=== PATIENT | male | born 1990 | race Hispanic/Latino ===

== ENCOUNTER 2019-06-10 19:50 | Emergency (ER) | payer SELFPAY ==
[2019-06-10] MEDS ORDERED: METOPROLOL TAR 25 MG TAB ONE (20:19)
[2019-06-10] MEDS ORDERED: NA CHLORIDE 0.9% 1,000 ML ONE (20:19)
[2019-06-10] MEDS ORDERED: THIAMINE 200 MG/2 ML INJ ONE (20:19)
[2019-06-10] MEDS ORDERED: METOPROLOL TARTRATE 5 MG/5 ML INJ IV ONE (20:19)
[2019-06-10 20:36] LABS: Absolute Lymphocytes (CBC) 5.4 K/uL (0.7-4.9); Basophils % 0.9 % (0-1.3); Hematocrit 51.4 % (39.6-49.0); Lymphocytes % 44.6 % (15.3-44.8); MPV 7.7 fL (7.6-11.3); RBC Red Blood Cell Count 5.49 M/uL (4.33-5.43)
--- NOTE | 2019-06-10 20:58 | RAD REPORT ---
EXAM DESCRIPTION: RAD - Chest Single View - 06/10/2019 8:39 pm CLINICAL HISTORY: Shortness of breath, palpitations COMPARISON: May 2013 TECHNIQUE: AP portable chest image was obtained 2020 . FINDINGS: Lung volumes are very low. Portable technique and large body habitus further limit the exa mination. No peripheral mass or consolidation. Minimal edema or infiltrate could be masked. Heart and vasculatu re are normal. No measurable pleural effusion and no pneumothorax. No acute bony abnormality seen. No acute aortic findings suspected. IMPRESSION: Limited portable chest examination without acute cardiopulmonary finding.
[2019-06-10 21:00] LABS: ALT/SGPT 67 U/L (12-78); AST/SGOT 65 U/L (15-37); Albumin 3.8 g/dL (3.4-5.0); Alkaline Phosphatase 115 U/L (45-117); BUN Blood Urea Nitrogen 3 mg/dL (7-18); Bicarbonate 25 mmol/L (21-32); Bilirubin Direct 0.1 mg/dL (0-0.2); Bilirubin Total 0.3 mg/dL (0.2-1.0); Glucose Level 120 mg/dL (74-106); Magnesium 2.1 mg/dL (1.8-2.4); NT PRO-BNP 10 pg/mL (<125); Potassium 3.5 mmol/L (3.5-5.1); Protein, Total 8.8 g/dL (6.4-8.2); Sodium Level 139 mmol/L (136-145); Troponin (Emerg Dept Use Only) < 0.02 ng/mL (0.0-0.045)
[2019-06-10 21:01] LABS: Protime INR 1.14
--- NOTE | 2019-06-10 21:01 | EDPHYS ---
Physician Documentation [facility] Name: Rusty Read Jr Age: 29 yrs Sex: Male : 1990 Arrival Date: 06/10/2019 Time: 19:53 Bed 4 Private MD: ED Physician Hardeep Hyde HPI: 06/10 20:54 This 29 yrs old Male presents to ER via Ambulatory with complaints of kb Palpitations. 20:54 The patient presents with a history of heart racing. Context: The symptoms occur at kb rest. Onset: The symptoms/episode began/occurred 1 hour(s) ago. Duration: The patient or guardian reports a single episode. Modifying factors: The symptoms are aggravated by nothing. The symptoms are alleviated by nothing. Associated signs and symptoms: The patient has no apparent associated signs or symptoms. Severity of symptoms: At their worst the symptoms were moderate in the emergency department the symptoms are unchanged. The patient has experienced similar episodes in the past, multiple times. The patient has not recently seen a physician. Pt reports history of SVT when he drinks. Started feeling racing heart within the hour. Historical: - Allergies: 20:02 No Known Allergies; jd3 - Home Meds: 20:02 Atenolol Oral [Active]; jd3 - PMHx: 20:02 svt; jd3 - PSHx: 20:02 Appendectomy; jd3 - Immunization history:: Adult Immunizations up to date. - Social history:: Smoking status: Patient uses tobacco products, smokes one pack cigarettes per day. Patient uses alcohol. - Ebola Screening: : Patient negative for fever greater than or equal to 101.5 degrees Fahrenheit, and additional compatible Ebola Virus Disease symptoms. ROS: 20:53 Constitutional: Negative for fever, chills, and weight loss, ENT: Negative for injury, kb pain, and discharge, Neck: Negative for injury, pain, and swelling, Respiratory: Negative for shortness of breath, cough, wheezing, and pleuritic chest pain, Abdomen/GI: Negative for abdominal pain, nausea, vomiting, diarrhea, and constipation, Back: Negative for injury and pain, MS/Extremity: Negative for injury and deformity, Skin: Negative for injury, rash, and discoloration, Neuro: Negative for headache, weakness, numbness, tingling, and seizure. 20:53 Cardiovascular: Positive for palpitations, Negative for chest pain, edema, orthopnea, paroxysmal nocturnal dyspnea. Exam: 20:53 Constitutional: This is a well developed, well nourished patient who is awake, alert, kb and in no acute distress. Head/Face: Normocephalic, atraumatic. ENT: Nares patent. No nasal discharge, no septal abnormalities noted. Tympanic membranes are normal and external auditory canals are clear. Oropharynx with no redness, swelling, or masses, exudates, or evidence of obstruction, uvula midline. Mucous membranes moist. Neck: Trachea midline, no thyromegaly or masses palpated, and no cervical lymphadenopathy. Supple, full range of motion without nuchal rigidity, or vertebral point tenderness. No Meningismus. Chest/axilla: Normal chest wall appearance and motion. Nontender with no deformity. No lesions are appreciated. Respiratory: Lungs have equal breath sounds bilaterally, clear to auscultation and percussion. No rales, rhonchi or wheezes noted. No increased work of breathing, no retractions or nasal flaring. Abdomen/GI: Soft, non-tender, with normal bowel sounds. No distension or tympany. No guarding or rebound. No evidence of tenderness throughout. Back: No spinal tenderness. No costovertebral tenderness. Full range of motion. Skin: Warm, dry with normal turgor. Normal color with no rashes, no lesions, and no evidence of cellulitis. MS/ Extremity: Pulses equal, no cyanosis. Neurovascular intact. Full, normal range of motion. Neuro: Awake and alert, GCS 15, oriented to person, place, time, and situation. Cranial nerves II-XII grossly intact. Motor strength 5/5 in all extremities. Sensory grossly intact. Cerebellar exam normal. Normal gait. 20:53 Cardiovascular: Rate: tachycardic, Rhythm: regular, Pulses: no pulse deficits are appreciated, Heart sounds: normal, normal S1and S2, no S3 or S4, no murmur. 21:00 ECG was reviewed by the Attending Physician. kb 21:09 ECG was reviewed by the Attending Physician. inés Vital Signs: 20:02 BP 154 / 94; Pulse 188; Resp 22 S; Temp 97.7(O); Pulse Ox 98% on R/A; Weight 113.4 kg jd3 (R); Height 5 ft. 6 in. (167.64 cm) (R); Pain 0/10; 20:32 BP 118 / 75; Pulse 94; Resp 20; Pulse Ox 99% on R/A; rr5 20:35 BP 118 / 75; Pulse 96; Resp 19; Pulse Ox 95% on R/A; Pain 0/10; lp1 21:11 BP 110 / 65; Pulse 90; Resp 20; Pulse Ox 97% on R/A; lp1 20:02 Body Mass Index 40.35 (113.40 kg, 167.64 cm) jd3 MDM: 20:03 Patient medically screened. kb 20:12 Data reviewed: vital signs, nurses notes. Data interpreted: Pulse oximetry: on room air kb is 98 %. Interpretation: normal. ED course: Monitor showed SVT at rate of 192, asked pt to bear down so try to convert himself. Pt strained and sat up saying "I'm good." Monitor showed heart rate coming down. Now ST with rate of 125. . 20:59 Counseling: I had a detailed discussion with the patient and/or guardian regarding: the kb historical points, exam findings, and any diagnostic results supporting the discharge/admit diagnosis, lab results, radiology results, the need for outpatient follow up, a family practitioner, to return to the emergency department if symptoms worsen or persist or if there are any questions or concerns that arise at home. ED course: Pt removed his IV and states he is ready to leave now. HR 98bpm. 06/10 20:03 Order name: Basic Metabolic Panel; Complete Time: 21:05 kb 06/10 20:03 Order name: CBC with Diff; Complete Time: 20:47 kb 06/10 20:03 Order name: LFT's; Complete Time: 21:05 kb 06/10 20:03 Order name: Magnesium; Complete Time: 21:05 kb 06/10 20:03 Order name: NT PRO-BNP; Complete Time: 21:05 kb 06/10 20:03 Order name: PT-INR kb 06/10 20:03 Order name: Troponin (emerg Dept Use Only); Complete Time: 21:05 kb 06/10 20:03 Order name: XRAY Chest (1 view); Complete Time: 21:05 kb 06/10 20:07 Order name: TSH remi 06/10 20:07 Order name: Thyroid Stimulating Hormone; Complete Time: 21:05 EDMS 06/10 20:03 Order name: EKG; Complete Time: 20:05 kb 06/10 20:03 Order name: Cardiac monitoring; Complete Time: 20:15 kb 06/10 20:03 Order name: EKG - Nurse/Tech; Complete Time: 20:15 kb 06/10 20:03 Order name: IV Saline Lock; Complete Time: 20:32 kb 06/10 20:03 Order name: Labs collected and sent; Complete Time: 20:32 kb 06/10 20:03 Order name: O2 Per Protocol; Complete Time: 20:32 kb 06/10 20:03 Order name: O2 Sat Monitoring; Complete Time: 20:16 kb 06/10 21:03 Order name: EKG - Nurse/Tech; Complete Time: 21:10 fc 06/10 21:03 Order name: EKG; Complete Time: 21:03 fc EC:00 Rate is 125 beats/min. Rhythm is regular, Sinus tachycardia. QRS [place] is Normal. MN kb interval is normal at 174 msec. QRS interval is normal at 82 msec. QT interval is normal at 306 msec. Reviewed by me. 21:09 Rate is 88 beats/min. Rhythm is regular, Normal Sinus Rhythm. QRS [place] is Normal. MN kb interval is normal at 178 msec. QRS interval is normal at 86 msec. QT interval is normal at 364 msec. Reviewed by me. Administered Medications: 20:25 Drug: NS 0.9% 1000 ml Route: IV; Rate: 1 bolus; Site: left forearm; rr5 21:10 Follow up: IV Status: IV converted to saline lock; IV Intake: 500ml lp1 20:25 Drug: NS 0.9% 1000 ml Route: IV; Rate: 1000 ml; Site: left forearm; rr5 21:11 Follow up: IV Status: IV converted to saline lock lp1 20:25 Drug: Thiamine 100 mg Route: IV; Rate: calculated rate; Site: left forearm; rr5 21:11 Follow up: IV Status: Completed infusion lp1 20:27 Drug: Lopressor 2.5 mg {Note: HR 130 bpm.} Route: IVP; Site: left forearm; rr5 21:10 Follow up: Response: No adverse reaction lp1 20:32 Drug: Lopressor 25 mg Route: PO; rr5 21:10 Follow up: Response: No adverse reaction lp1 Disposition: 06/11 09:00 Co-signature as Attending Physician, Hardeep Hyde MD I agree with the assessment and remi plan of care. Disposition: 06/10/19 21:00 Discharged to Home. Impression: Supraventricular tachycardia - resolved. - Condition is Stable. - Discharge Instructions: Paroxysmal Supraventricular Tachycardia, [id number]. - Medication Reconciliation Form, Thank You Letter, Antibiotic Education, Prescription Opioid Use form. - Follow up: Emergency Department; When: As needed; Reason: Worsening of condition. Follow up: Private Physician; When: 2 - 3 days; Reason: Recheck today's complaints, Continuance of care, Re-evaluation by your physician. Signatures: Dispatcher [employer] EDMS Angeles Chavez, ROLL PLUGGER-C ROLL PLUGGER-Hardeep Haley MD MD cha Chretien, Felicia, RN RN fc Juju Ribera RN RN lp1 Bruce Wiley RN RN jd3 David Howard RN RN rr5 Corrections: (The following items were deleted from the chart) 06/10 21:12 21:00 06/10/2019 21:00 Discharged to Home. Impression: Supraventricular tachycardia - lp1 resolved. Condition is Stable. Forms are Medication Reconciliation Form, Thank You Letter, Antibiotic Education, Prescription Opioid Use. Follow up: Emergency Department; When: As needed; Reason: Worsening of condition. Follow up: Private Physician; When: 2 - 3 days; Reason: Recheck today's complaints, Continuance of care, Re-evaluation by your physician. kb
--- NOTE | 2019-06-10 21:01 | ER ---
Nurse's Notes [facility] Name: Rusty Read Jr Age: 29 yrs Sex: Male : 1990 Arrival Date: 06/10/2019 Time: 19:53 Bed 4 Private MD: Diagnosis: Supraventricular tachycardia-resolved Presentation: 06/10 19:59 Presenting complaint: Patient states: "My heart is feeling crazy. It feels like I can't jd3 breath. it started at 1900 today.". Transition of care: patient was not received from another setting of care. Onset of symptoms was June 10, 2019. Risk Assessment: Do you want to hurt yourself or someone else? Patient reports no desire to harm self or others. Initial Sepsis Screen: Does the patient meet any 2 criteria? No. Patient's initial sepsis screen is negative. Does the patient have a suspected source of infection? No. Patient's initial sepsis screen is negative. Care prior to arrival: None. 19:59 Method Of Arrival: Ambulatory jd3 19:59 Acuity: CINDY 2 jd3 Historical: - Allergies: 20:02 No Known Allergies; jd3 - Home Meds: 20:02 Atenolol Oral [Active]; jd3 - PMHx: 20:02 svt; jd3 - PSHx: 20:02 Appendectomy; jd3 - Immunization history:: Adult Immunizations up to date. - Social history:: Smoking status: Patient uses tobacco products, smokes one pack cigarettes per day. Patient uses alcohol. - Ebola Screening: : Patient negative for fever greater than or equal to 101.5 degrees Fahrenheit, and additional compatible Ebola Virus Disease symptoms. Screenin:33 Abuse screen: Denies threats or abuse. Denies injuries from another. Nutritional lp1 screening: No deficits noted. Tuberculosis screening: No symptoms or risk factors identified. Fall Risk None identified. Assessment: 20:32 Reassessment: Patient states drinking 12 pack of beer today. General: Appears in no lp1 apparent distress. Behavior is calm, cooperative, appropriate for age, Smells of alcohol. Pain: Denies pain. Neuro: Level of Consciousness is awake, alert, obeys commands, Oriented to person, place, time, situation. Cardiovascular: Patient's skin is warm and dry. Respiratory: Respiratory effort is even, unlabored. GI: No signs and/or symptoms were reported involving the gastrointestinal system. : No signs and/or symptoms were reported regarding the genitourinary system. EENT: No signs and/or symptoms were reported regarding the EENT system. Derm: Skin is pink, warm \\T\\ dry. Musculoskeletal: No deficits noted. 20:44 Reassessment: Patient appears in no apparent distress at this time. Patient is alert, lp1 oriented x 3, equal unlabored respirations, skin warm/dry/pink. Patient denies pain at this time. Patient states feeling better. 20:55 Reassessment: Got called into room by pts mother. Pt has "accidently" pulled out IV fc line. Pt states that he is ready to leave now. Explained that he needed another IV so that he can get his IVF. PT refused. Angeles FULL STACK PHP DEVELOPER notified. EKG ordered. Vital Signs: 20:02 BP 154 / 94; Pulse 188; Resp 22 S; Temp 97.7(O); Pulse Ox 98% on R/A; Weight 113.4 kg jd3 (R); Height 5 ft. 6 in. (167.64 cm) (R); Pain 0/10; 20:32 BP 118 / 75; Pulse 94; Resp 20; Pulse Ox 99% on R/A; rr5 20:35 BP 118 / 75; Pulse 96; Resp 19; Pulse Ox 95% on R/A; Pain 0/10; lp1 21:11 BP 110 / 65; Pulse 90; Resp 20; Pulse Ox 97% on R/A; lp1 20:02 Body Mass Index 40.35 (113.40 kg, 167.64 cm) j ED Course: 19:53 Patient arrived in ED. es 19:53 Angeles Chavez FNP-C is PHCP. kb 19:53 Hardeep Hyde MD is Attending Physician. kb 20:01 Triage completed. jd3 20:03 Arm band placed on. jd3 20:15 David Howard RN is Primary Nurse. rr5 20:20 Inserted saline lock: 20 gauge in left forearm, using aseptic technique. Blood rr5 collected. 20:33 Patient has correct armband on for positive identification. Placed in gown. Cardiac lp1 monitor on. Pulse ox on. NIBP on. 20:34 Juju Ribera, RN is Primary Nurse. lp1 20:39 XRAY Chest (1 view) In Process Unspecified. EDMS 21:11 No provider procedures requiring assistance completed. IV out by patient. lp1 Administered Medications: 20:25 Drug: NS 0.9% 1000 ml Route: IV; Rate: 1 bolus; Site: left forearm; rr5 21:10 Follow up: IV Status: IV converted to saline lock; IV Intake: 500ml lp1 20:25 Drug: NS 0.9% 1000 ml Route: IV; Rate: 1000 ml; Site: left forearm; rr5 21:11 Follow up: IV Status: IV converted to saline lock lp1 20:25 Drug: Thiamine 100 mg Route: IV; Rate: calculated rate; Site: left forearm; rr5 21:11 Follow up: IV Status: Completed infusion lp1 20:27 Drug: Lopressor 2.5 mg {Note: HR 130 bpm.} Route: IVP; Site: left forearm; rr5 21:10 Follow up: Response: No adverse reaction lp1 20:32 Drug: Lopressor 25 mg Route: PO; rr5 21:10 Follow up: Response: No adverse reaction lp1 Intake: 21:10 IV: 500ml; Total: 500ml. lp1 Output: 20:33 Urine: 800ml (Voided); Total: 800ml. lp1 Outcome: 21:00 Discharge ordered by . kb 21:12 Discharged to home ambulatory, with family. lp1 21:12 Condition: good 21:12 Discharge instructions given to patient, Instructed on discharge instructions, follow up and referral plans. Demonstrated understanding of instructions, follow-up care. 21:12 Patient left the ED. lp1 Signatures: Dispatcher [employer] EDMS Angeles Chavez, NURSE WOUND CARE-C NURSE WOUND CARE-Pamela Lyn Felicia RN Juju Davis, RN RN lp1 Bruce Wiley RN RN jDavid Sharif RN RN rr5
[2019-06-10 21:53] VITALS: TEMP 97.7
[2019-06-10 21:57] VITALS: BP 110/65; O2SAT 97
--- NOTE | 2019-06-11 07:43 | EKG ---
Test Date: 2019-06-10 Test Time: 20:09:08 Telephone Lineman: MARIJA MEASUREMENT RESULTS: Intervals: Rate: 125 MI: 174 QRSD: 82 QT: 306 QTc: 441 [place]en: P: 32 MI: 174 QRS: 57 T: 38 INTERPRETIVE STATEMENTS: Sinus tachycardia Otherwise normal ECG Compared to ECG 02/02/2014 02:08:55 Sinus bradycardia no longer present Atrial premature complex(es) no longer present Electronically Signed On 06-11-19 07:42:17 CDT by Bro Ovalle
--- NOTE | 2019-06-11 07:43 | EKG ---
Test Date: 2019-06-10 Test Time: 21:02:20 Tank Truck Engine Mechanic: KETAN MEASUREMENT RESULTS: Intervals: Rate: 88 DC: 178 QRSD: 86 QT: 364 QTc: 440 [place]: P: 11 DC: 178 QRS: 24 T: 17 INTERPRETIVE STATEMENTS: Normal sinus rhythm Normal ECG Compared to ECG 06/10/2019 20:09:08 Sinus tachycardia no longer present Electronically Signed On 06-11-19 07:42:08 CDT by Bro Ovalle
== END 2019-06-10 21:12 | disposition home or self-care (01) ==
LOC: ER 19:50
DX: I47.1 Supraventricular tachycardia (principal); F17.210 Nicotine dependence, cigarettes, uncomplicated
CPT/HCPCS: 36415; 71045; 80048; 80076; 83735; 83880; 84443; 84484; 85025; 85610; 93005; 96365; 96375; 99284; J3411; J7030

== ENCOUNTER 2019-09-08 21:43 | Emergency (ER) | payer SELFPAY ==
[2019-09-08] MEDS ORDERED: NA CHLORIDE 0.9% 1,000 ML ONE (22:49)
[2019-09-08 23:05] LABS: Absolute Lymphocytes (CBC) 3.1 K/uL (0.7-4.9); Basophils % 1.2 % (0-1.3); Hematocrit 51.6 % (39.6-49.0); Lymphocytes % 32.3 % (15.3-44.8); MPV 8.8 fL (7.6-11.3); RBC Red Blood Cell Count 5.61 M/uL (4.33-5.43)
[2019-09-08 23:06] LABS: Protime INR 1.14
[2019-09-08] MEDS ORDERED: METOPROLOL TARTRATE 5 MG/5 ML INJ IV ONE (23:31)
[2019-09-08 23:45] LABS: ALT/SGPT 47 U/L (12-78); AST/SGOT 51 U/L (15-37); Albumin 3.2 g/dL (3.4-5.0); Alkaline Phosphatase 79 U/L (45-117); BUN Blood Urea Nitrogen 4 mg/dL (7-18); Bicarbonate 25 mmol/L (21-32); Bilirubin Direct 0.2 mg/dL (0-0.2); Bilirubin Total 0.4 mg/dL (0.2-1.0); Glucose Level 106 mg/dL (74-106); Magnesium 2.1 mg/dL (1.8-2.4); NT PRO-BNP 28 pg/mL (<125); Potassium 3.9 mmol/L (3.5-5.1); Protein, Total 7.7 g/dL (6.4-8.2); Sodium Level 141 mmol/L (136-145); Troponin (Emerg Dept Use Only) < 0.02 ng/mL (0.0-0.045)
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
--- NOTE | 2019-09-08 23:55 | ER ---
Nurse's Notes [facility] Name: Rusty Read Jr Age: 29 yrs Sex: Male : 1990 Arrival Date: 09/08/2019 Time: 21:56 Bed 17 Private MD: Diagnosis: Anxiety disorder, unspecified;Tachycardia, unspecified;Palpitations Presentation: 09/08 22:02 Presenting complaint: Patient states: he was pulled over by the patient representative and he started bb feeling palpitations and shortness of breath since approx 2044 tonight. Transition of care: patient was not received from another setting of care. Onset of symptoms was September 08, 2019. Risk Assessment: Do you want to hurt yourself or someone else? Patient reports no desire to harm self or others. Initial Sepsis Screen: Does the patient meet any 2 criteria? No. Patient's initial sepsis screen is negative. Does the patient have a suspected source of infection? No. Patient's initial sepsis screen is negative. Care prior to arrival: None. 22:02 Method Of Arrival: Law Enforcement: DPS bb 22:02 Acuity: CINDY 3 bb Triage Assessment: 22:30 Respiratory: Reports shortness of breath Onset: The symptoms/episode began/occurred the wh patient reports symptoms have resolved. Historical: - Allergies: 22:05 No Known Allergies; bb - Home Meds: 22:05 Atenolol Oral [Active]; bb - PMHx: 22:05 SVT; bb - PSHx: 22:05 Ablation; bb - Immunization history:: Adult Immunizations up to date. - Coronavirus screen:: The patient has NOT traveled to [place], [place], or [place] in the past 14 days. Proceed with normal triage process as indicated. - Social history:: Smoking status: Patient reports the use of cigarette tobacco products, smokes one-half pack cigarettes per day. - Ebola Screening: : No symptoms or risks identified at this time. Screenin:00 Abuse screen: Denies threats or abuse. Denies injuries from another. Nutritional wh screening: No deficits noted. Tuberculosis screening: No symptoms or risk factors identified. Fall Risk None identified. Assessment: 22:00 General: Appears in no apparent distress. Behavior is calm, cooperative, appropriate wh for age, Smells of alcohol. Pain: Denies pain. Neuro: Level of Consciousness is awake, alert, obeys commands. Cardiovascular: Reports palpitations, Heart tones S1 S2 Rhythm is sinus tachycardia. Respiratory: Airway is patent Respiratory effort is even, unlabored, Respiratory pattern is regular, symmetrical, Breath sounds are clear bilaterally. GI: Abdomen is flat, non-distended. : No signs and/or symptoms were reported regarding the genitourinary system. EENT: No signs and/or symptoms were reported regarding the EENT system. Derm: Skin is intact, is healthy with good turgor, Skin is pink, warm \T\ dry. normal. Musculoskeletal: Circulation, motion, and sensation intact. 23:00 Reassessment: Patient appears in no apparent distress at this time. No changes from previously documented assessment. Patient and/or family updated on plan of care and expected duration. Pain level reassessed. Patient is alert, oriented x 3, equal unlabored respirations, skin warm/dry/pink. 23:52 Reassessment: Patient appears in no apparent distress at this time. No changes from previously documented assessment. Patient and/or family updated on plan of care and expected duration. Pain level reassessed. Patient is alert, oriented x 3, equal unlabored respirations, skin warm/dry/pink. Patient states feeling better. Patient states symptoms have improved. Vital Signs: 22:05 Weight 104.33 kg (R); Height 5 ft. 7 in. (170.18 cm) (R); Pain 0/10; bb 22:17 BP 119 / 62 LA Supine (auto/reg); Pulse 120 MON; Resp 20 S; Temp 97.9(O); Pulse Ox 95% ds4 on R/A; 22:59 BP 117 / 60; Pulse 109; Resp 18; Pulse Ox 96% on R/A; wh 23:52 BP 112 / 81; Pulse 89; Resp 18; Pulse Ox 97% on R/A; wh 22:05 Body Mass Index 36.02 (104.33 kg, 170.18 cm) bb ED Course: 21:56 Patient arrived in ED. bb 21:56 Emperatriz Velez is Primary Nurse. wh 22:04 Triage completed. bb 22:05 Arm band placed on Patient placed in an exam room, on a stretcher, on front desk monitor, bb on pulse oximetry. EKG completed in triage. Results shown to MD. 22:18 Davian Brennan MD is Attending Physician. tw4 22:30 Patient has correct armband on for positive identification. Bed in low position. Call light in reach. Side rails up X 1. alarm security or surveillance monitor on. Pulse ox on. NIBP on. 22:30 Inserted saline lock: 20 gauge in left antecubital area, using aseptic technique. Blood wh collected. 22:49 XRAY Chest (1 view) In Process Unspecified. EDMS 09/09 00:07 No provider procedures requiring assistance completed. IV discontinued, intact, bleeding controlled, No redness/swelling at site. Administered Medications: 09/08 22:53 Drug: NS 0.9% 1000 ml Route: IV; Rate: 1 bolus; Site: left antecubital; 09/09 00:00 Follow up: Response: No adverse reaction; IV Status: Completed infusion 09/08 23:31 Drug: Lopressor 5 mg Route: IVP; Site: left antecubital; 09/09 00:00 Follow up: Response: No adverse reaction; Marked relief of symptoms Outcome: 09/08 23:55 Discharge ordered by . tw4 09/09 00:07 Discharged to Law Enforcement Condition: stable Discharge instructions given to patient, police, Instructed on discharge instructions, follow up and referral plans. POC Demonstrated understanding of instructions, follow-up care, POC 00:07 Patient left the ED. Signatures: Dispatcher [employer] Michaelle Cardona, RENEE RN Aubrey Moses ds4 Emperatriz Velez Davian Brennan MD MD tw4
--- NOTE | 2019-09-09 06:45 | EKG ---
Test Date: 2019-09-08 Test Time: 22:07:52 Motion Designer: VIPUL MEASUREMENT RESULTS: Intervals: Rate: 114 WA: 166 QRSD: 80 QT: 328 QTc: 452 [place]: P: 41 WA: 166 QRS: 51 T: 25 INTERPRETIVE STATEMENTS: Sinus tachycardia Otherwise normal ECG Compared to ECG 06/10/2019 21:02:20 Sinus rhythm no longer present Electronically Signed On 09-09-19 06:45:08 DEFENSIVE FIRE CONTROL SYSTEMS OPERATOR by Bro Ovalle
--- NOTE | 2019-09-09 08:23 | RAD REPORT ---
EXAM DESCRIPTION: Thao Single View09/08/2019 10:48 pm CLINICAL HISTORY: sob COMPARISON: 2019 FINDINGS: The lungs appear clear of acute infiltrate. The heart is normal size IMPRESSION: No acute abnormalities displayed
[2019-09-09 12:13] VITALS: TEMP 97.9
[2019-09-09 12:16] VITALS: BP 112/81; O2SAT 97
== END 2019-09-09 00:07 | disposition home or self-care (01) ==
LOC: ER 21:43
DX: F41.9 Anxiety disorder, unspecified (principal); R00.0 Tachycardia, unspecified; R00.2 Palpitations
CPT/HCPCS: 36415; 71045; 80048; 80076; 83735; 83880; 84484; 85025; 85610; 93005; 96361; 96374; 99284; J7030

== ENCOUNTER 2021-12-13 08:49 | Inpatient (IN) | payer SELFPAY ==
[2021-12-13] MEDS ORDERED: LORazepam 2 MG/ML VIAL ONE ×3 (09:45→11:56)
[2021-12-13] MEDS ORDERED: NA CHLORIDE 0.9% 1,000 ML ONE (09:46)
[2021-12-13] MEDS ORDERED: THIAMINE 200 MG/2 ML INJ ONE (09:46)
[2021-12-13 10:18] LABS: Absolute Lymphocytes (CBC) 1.4 K/uL (0.7-4.9); Hematocrit 42.6 % (39.6-49.0); MPV 8.3 fL (7.6-11.3); RBC Red Blood Cell Count 4.59 M/uL (4.33-5.43)
--- NOTE | 2021-12-13 11:06 | ER ---
Nurse's Notes [facility] Name: Rusty Read Jr Age: 31 yrs Sex: Male : 1990 Arrival Date: 12/13/2021 Time: 08:52 Bed 14 Private MD: Diagnosis: Altered mental status, unspecified;Alcohol abuse with intoxication;Alcohol dependence with withdrawal delirium Presentation: 12/13 08:53 Chief complaint: EMS states: "family called EMS for a pt that is having confusion and jd3 trimmers. family also reported that the pt stopped drinking about 4 days ago. BGL was 97, and other vital signs were within normal limits.". Coronavirus screen: At this time, the client does not indicate any symptoms associated with coronavirus-19. Ebola Screen: No symptoms or risks identified at this time. Initial Sepsis Screen: Does the patient meet any 2 criteria? No. Patient's initial sepsis screen is negative. Does the patient have a suspected source of infection? No. Patient's initial sepsis screen is negative. Risk Assessment: Do you want to hurt yourself or someone else? Patient reports no desire to harm self or others. Onset of symptoms was December 13, 2021. 08:53 Method Of Arrival: EMS: [facility] jd3 08:53 Acuity: CINDY 2 jd3 Historical: - Allergies: 08:59 No Known Allergies; jd3 - Home Meds: 08:59 Atenolol Oral [Active]; jd3 - PMHx: 08:59 SVT; jd3 - Immunization history:: Adult Immunizations up to date. - Social history:: Smoking status: unknown. Screenin:00 Abuse screen: Denies threats or abuse. Nutritional screening: No deficits noted. jd3 Tuberculosis screening: No symptoms or risk factors identified. Fall Risk Ambulatory Aid- None/Bed Rest/Nurse Assist (0 pts). Gait- Normal/Bed Rest/Wheelchair (0 pts) Mental Status- Oriented to own ability (0 pts). Total Marino Fall Scale indicates No Risk (0-24 pts). Assessment: 09:00 General: Appears in no apparent distress. comfortable, Behavior is agitated, restless. jd3 Pain: Denies pain. Neuro: Level of Consciousness is awake, alert, obeys commands, confused, Oriented to person, place. Cardiovascular: Denies chest pain, Capillary refill < 3 seconds Patient's skin is warm and dry. Respiratory: Airway is patent Respiratory effort is even, unlabored, Respiratory pattern is regular, symmetrical, Denies cough, shortness of breath. GI: No signs and/or symptoms were reported involving the gastrointestinal system. : No signs and/or symptoms were reported regarding the genitourinary system. EENT: No signs and/or symptoms were reported regarding the EENT system. Derm: Skin is intact, Skin is dry, Skin is normal, Skin temperature is warm. Musculoskeletal: Circulation, motion, and sensation intact. Range of motion: intact in all extremities. 09:56 Reassessment: No changes from previously documented assessment. Patient and/or family jd3 updated on plan of care and expected duration. Pain level reassessed. Patient denies pain at this time. 11:36 Reassessment: environmental sampling technician attempted to transport pt to CT, pt unable to sit still in bed, iw flinging legs around , Dr. Hyde notified , pt brought back to ER bed 14. 12:30 Reassessment: Patient appears in no apparent distress at this time. No changes from jd3 previously documented assessment. Patient and/or family updated on plan of care and expected duration. Pain level reassessed. pt continues to be restless in bed. A\\T\\O X 1. even and unlabored respirations. family at bedside. 13:17 Reassessment: Patient appears in no apparent distress at this time. Patient and/or jd3 family updated on plan of care and expected duration. Pain level reassessed. pt resting in bed with eyes closed. even and unlabored respirations. family at bedside. call light in reach. General: Appears comfortable, Behavior is calm, quiet. Respiratory: Airway is patent Respiratory effort is even, unlabored, Respiratory pattern is regular, symmetrical. 15:58 Reassessment: Patient appears in no apparent distress at this time. No changes from jd3 previously documented assessment. Patient and/or family updated on plan of care and expected duration. Pain level reassessed. Vital Signs: 08:59 BP 129 / 99; Pulse 70; Resp 19 S; Temp 98.3(TE); Pulse Ox 96% on R/A; Weight 147.42 kg jd3 (R); Height 5 ft. 6 in. (167.64 cm) (R); Pain 0/10; 09:56 BP 118 / 70; Pulse 75; Resp 20 S; Pulse Ox 95% on R/A; jd3 11:23 BP 165 / 84; Pulse 75; Resp 20 S; Pulse Ox 95% on R/A; jd3 13:15 Pulse Ox 88% on R/A; jd3 13:19 BP 149 / 93; Pulse 62; Resp 22 S; Pulse Ox 93% on 2 lpm NC; jd3 15:58 BP 132 / 71; Pulse 54; Resp 18 S; Pulse Ox 93% on 4 lpm NC; jd3 08:59 Body Mass Index 52.46 (147.42 kg, 167.64 cm) jd3 ED Course: 08:52 Patient arrived in ED. iw 08:53 Bruce Wiley, RENEE is Primary Nurse. jd3 08:56 Hardeep Hyde MD is Attending Physician. [facility] 08:58 Triage completed. jd3 09:00 Arm band placed on. jd3 09:01 Patient has correct armband on for positive identification. Bed in low position. Call jd3 light in reach. Side rails up X2. Adult w/ patient. Client placed on continuous cardiac and pulse oximetry monitoring. NIBP monitoring applied. lunchroom monitor on. Pulse ox on. NIBP on. 09:07 Seizure precautions initiated. Warm blanket given. [facility] 09:07 EKG done, by ED staff, reviewed by Hardeep Hyde MD. [facility] 09:40 Missed attempt(s): 20 gauge in left antecubital area. Bleeding controlled, band aid jd3 applied, catheter tip intact. 09:45 Missed attempt(s): 20 gauge in right antecubital area. Bleeding controlled, band aid jd3 applied, catheter tip intact. 09:51 Inserted saline lock: 22 gauge in right forearm, using aseptic technique. placed by j Sara DURAN. 11:03 Bruce Abernathy MD is Hospitalizing Provider. remi 11:40 XRAY Chest (1 view) In Process Unspecified. EDMS 12:23 CT Head Brain wo Cont In Process Unspecified. EDMS 15:59 No provider procedures requiring assistance completed. Patient admitted, IV remains in jd3 place. Administered Medications: 09:51 Drug: NS 0.9% 1000 ml Route: IV; Rate: 1 bolus; Site: right forearm; jd3 10:50 Follow up: Response: No adverse reaction; IV Status: Completed infusion jd3 09:51 Drug: Thiamine 100 mg Route: IV; Rate: bolus; Site: right forearm; jd3 10:50 Follow up: Response: No adverse reaction; IV Status: Completed infusion jd3 09:51 Drug: Ativan (LORazepam) 2 mg Route: IVP; Site: right forearm; jd3 10:50 Follow up: Response: No adverse reaction jd3 11:16 Drug: Ativan (LORazepam) 2 mg Route: IVP; Site: right forearm; jd3 12:15 Follow up: Response: No adverse reaction jd3 11:16 Drug: Pepcid (famotidine) 20 mg Route: IVP; Site: right forearm; jd3 12:15 Follow up: Response: No adverse reaction jd3 11:57 Drug: Ativan (LORazepam) 2 mg Route: IVP; Site: right antecubital; jd3 12:57 Follow up: Response: No adverse reaction jd3 12:37 Drug: Banana Bag - (NS 0.9% 1000 ml, foLIC Acid 1 mg, Thiamine 100 mg, Multivitamin 1 jd3 amp) Route: IV; Rate: 125 ml/hr; Site: right forearm; 15:59 Follow up: Response: No adverse reaction; IV Status: Infusion continued upon admission jd3 Outcome: 11:05 Decision to Hospitalize by Provider. remi 15:59 Admitted to ER Hold. Please see [facility] for further documentation. jd3 15:59 Condition: stable 15:59 Instructed on the need for admit. 21:29 Patient left the ED. lp1 Signatures: Dispatcher [employer] Hardeep Myles MD MD cha Williams, Irene, RN RN Juju Ribera RN RN lp1 Abby Townsend Bruce Rivera RN RN jd3 Corrections: (The following items were deleted from the chart) 09:52 09:51 NS 0.9% 1000 ml IV at 1 bolus in left forearm jd3 jd3 09:52 09:51 Thiamine 100 mg IV at bolus in left forearm jd3 jd3 09:52 09:51 Ativan (LORazepam) 2 mg IVP in left forearm jd3 jd3 11:37 11:36 Reassessment: environmental sampling technician attempted to transport pt to CT, pt unable to sit still in bed, flinging legs around , Dr. Hyde notified iw : 09:00 General: Appears in no apparent distress. comfortable, Behavior is calm, jd3 cooperative, appropriate for age, jd3 09:56 Reassessment: Patient appears in no apparent distress at this time. No changes jd3 from previously documented assessment. Patient and/or family updated on plan of care and expected duration. Pain level reassessed. Patient denies pain at this time. jd3 09:00 General: Appears in no apparent distress. comfortable, Behavior is calm, jd3 cooperative, appropriate for age, restless, jd3 : 09:56 Reassessment: Patient appears in no apparent distress at this time. No changes jd3 from previously documented assessment. Patient and/or family updated on plan of care and expected duration. Pain level reassessed. Patient denies pain at this time. jd3
--- NOTE | 2021-12-13 11:06 | EDPHYS ---
Physician Documentation [facility] Name: Rusty Read Jr Age: 31 yrs Sex: Male : 1990 Arrival Date: 12/13/2021 Time: 08:52 Bed 14 Private MD: ED Physician Hardeep Hyde HPI: 12/13 10:49 This 31 yrs old Male presents to ER via EMS with complaints of ETOH Abuse, remi Tremor. 10:49 EOTH withdrawal. The patient presents with confusion, decreased mental status, remi disorientation. Onset: The symptoms/episode began/occurred 2 day(s) ago. Possible causes: CVA or TIA, drug use, alcohol, head injury, low blood sugar. Associated signs and symptoms: Pertinent positives: combativeness, confusion. Current symptoms: In the emergency department the patient's symptoms are unchanged from the initial presentation. Patient's baseline: Neuro: alert and fully oriented. Severity of symptoms: At their worst the symptoms were moderate in the emergency department the symptoms are unchanged. The patient has experienced similar episodes in the past, multiple times. Historical: - Allergies: 08:59 No Known Allergies; jd3 - Home Meds: 08:59 Atenolol Oral [Active]; jd3 - PMHx: 08:59 SVT; jd3 - Immunization history:: Adult Immunizations up to date. - Social history:: Smoking status: unknown. ROS: 10:52 Constitutional: Negative for fever, chills, and weight loss, Eyes: Negative for injury, remi pain, redness, and discharge, ENT: Negative for injury, pain, and discharge, Neck: Negative for injury, pain, and swelling, Cardiovascular: Negative for chest pain, palpitations, and edema, Respiratory: Negative for shortness of breath, cough, wheezing, and pleuritic chest pain, Abdomen/GI: Negative for abdominal pain, nausea, vomiting, diarrhea, and constipation, Back: Negative for injury and pain, : Negative for injury, bleeding, discharge, and swelling, MS/Extremity: Negative for injury and deformity, Skin: Negative for injury, rash, and discoloration, Psych: Negative for depression, anxiety, suicide ideation, homicidal ideation, and hallucinations, Allergy/Immunology: Negative for hives, rash, and allergies, Endocrine: Negative for neck swelling, polydipsia, polyuria, polyphagia, and marked weight changes, Hematologic/Lymphatic: Negative for swollen nodes, abnormal bleeding, and unusual bruising. 10:52 Neuro: Positive for altered mental status, weakness. Exam: 10:52 Constitutional: This is a well developed, well nourished patient who is awake, alert, remi and in no acute distress. Head/Face: Normocephalic, atraumatic. Eyes: Pupils equal round and reactive to light, extra-ocular motions intact. Lids and lashes normal. Conjunctiva and sclera are non-icteric and not injected. Cornea within normal limits. Periorbital areas with no swelling, redness, or edema. ENT: Nares patent. No nasal discharge, no septal abnormalities noted. Tympanic membranes are normal and external auditory canals are clear. Oropharynx with no redness, swelling, or masses, exudates, or evidence of obstruction, uvula midline. Mucous membranes moist. Neck: Trachea midline, no thyromegaly or masses palpated, and no cervical lymphadenopathy. Supple, full range of motion without nuchal rigidity, or vertebral point tenderness. No Meningismus. Chest/axilla: Normal chest wall appearance and motion. Nontender with no deformity. No lesions are appreciated. Cardiovascular: Regular rate and rhythm with a normal S1 and S2. No gallops, murmurs, or rubs. Normal PMI, no JVD. No pulse deficits. Respiratory: Lungs have equal breath sounds bilaterally, clear to auscultation and percussion. No rales, rhonchi or wheezes noted. No increased work of breathing, no retractions or nasal flaring. Abdomen/GI: Soft, non-tender, with normal bowel sounds. No distension or tympany. No guarding or rebound. No evidence of tenderness throughout. Back: No spinal tenderness. No costovertebral tenderness. Full range of motion. Male : Normal genitalia with no discharge or lesions. Skin: Warm, dry with normal turgor. Normal color with no rashes, no lesions, and no evidence of cellulitis. Psych: Awake, alert, with orientation to person, place and time. Behavior, mood, and affect are within normal limits. 10:52 Musculoskeletal/extremity: Exam is negative for acute changes. 10:59 ECG was reviewed by the Attending Physician. [facility] Vital Signs: 08:59 BP 129 / 99; Pulse 70; Resp 19 S; Temp 98.3(TE); Pulse Ox 96% on R/A; Weight 147.42 kg jd3 (R); Height 5 ft. 6 in. (167.64 cm) (R); Pain 0/10; 09:56 BP 118 / 70; Pulse 75; Resp 20 S; Pulse Ox 95% on R/A; jd3 11:23 BP 165 / 84; Pulse 75; Resp 20 S; Pulse Ox 95% on R/A; jd3 13:15 Pulse Ox 88% on R/A; jd3 13:19 BP 149 / 93; Pulse 62; Resp 22 S; Pulse Ox 93% on 2 lpm NC; jd3 15:58 BP 132 / 71; Pulse 54; Resp 18 S; Pulse Ox 93% on 4 lpm NC; jd3 08:59 Body Mass Index 52.46 (147.42 kg, 167.64 cm) jd3 MDM: 08:56 Patient medically screened. remi 10:57 Differential Diagnosis altered mental status. Differential Diagnosis: CVA, electrolyte remi abnormality, alcohol intoxication, hypoglycemia, intracranial bleed, overdose, seizure, sepsis, TIA, UTI, volume depletion. Data reviewed: vital signs, nurses notes, EMS record, lab test result(s), EKG, radiologic studies, CT scan, plain films. Data interpreted: monitor tech: rate is 75 beats/min, rhythm is regular, Pulse oximetry: on room air is 95 %. Test interpretation: by ED physician or midlevel provider: ECG, plain radiologic studies. 12/13 08:57 Order name: Acetaminophen; Complete Time: 11:53 [facility] 12/13 08:57 Order name: Basic Metabolic Panel; Complete Time: 11:53 [facility] 12/13 08:57 Order name: CBC with Diff; Complete Time: 10:42 [facility] 12/13 08:57 Order name: ETOH Level; Complete Time: 11:34 [facility] 12/13 08:57 Order name: Hepatic Function; Complete Time: 11:53 remi 12/13 08:57 Order name: PT-INR; Complete Time: 11:34 remi 12/13 08:57 Order name: Ptt, Activated; Complete Time: 11:34 remi 12/13 08:57 Order name: Salicylate; Complete Time: 11:53 [facility] 12/13 08:57 Order name: Urine Drug Screen [facility] 12/13 10:37 Order name: Magnesium; Complete Time: 11:53 [facility] 12/13 10:37 Order name: NT PRO-BNP; Complete Time: 11:53 [facility] 12/13 10:37 Order name: Troponin HS; Complete Time: 11:53 [facility] 12/13 10:52 Order name: SARS-COV-2 RT PCR (Document "Date of Onset" if Symptomatic) remi 12/13 14:55 Order name: CBC with Automated Diff EDMS 12/13 08:57 Order name: EKG; Complete Time: 08:57 [facility] 12/13 10:37 Order name: XRAY Chest (1 view); Complete Time: 11:53 [facility] 12/13 10:37 Order name: CT Head Brain wo Cont; Complete Time: 13:10 [facility] 12/13 14:55 Order name: CBC with Automated Diff EDMS 12/13 14:55 Order name: Comprehensive Metabolic Panel EDMS 12/13 14:55 Order name: Comprehensive Metabolic Panel EDMS 12/13 14:55 Order name: Magnesium EDMS 12/13 14:55 Order name: Magnesium EDMS 12/13 19:24 Order name: Urine Dipstick-Ancillary EDMS 12/13 08:57 Order name: EKG - Nurse/Tech; Complete Time: 09:07 [facility] 12/13 08:57 Order name: IV Saline Lock; Complete Time: 09:51 [facility] 12/13 08:57 Order name: Labs collected and sent; Complete Time: 09:51 [facility] 12/13 08:57 Order name: Seizure Precautions; Complete Time: 09:51 [facility] 12/13 09:47 Order name: Labs - recollect needed: need to recollect all blood due to hemolyzing; aa5 Complete Time: 10:38 12/13 10:24 Order name: Labs - recollect needed: recollect red,green,blue,lavender tube; Complete bd Time: 11:03 12/13 10:37 Order name: Cardiac monitoring; Complete Time: 10:39 [facility] 12/13 10:37 Order name: O2 Per Protocol; Complete Time: 10:38 [facility] 12/13 10:37 Order name: O2 Sat Monitoring; Complete Time: 10:38 [facility] 12/13 10:52 Order name: Restraint:Violent/Self Destructive (Adult:18yo or >); Complete Time: 11:03 [facility] 12/13 14:55 Order name: Heart Healthy EDMS 12/13 14:55 Order name: Regular EDMS EC:59 Rate is 65 beats/min. Rhythm is regular. QRS [place] is Normal. TN interval is normal. QRS remi interval is normal. QT interval is normal. No Q waves. T waves are Normal. No ST changes noted. Clinical impression: Normal ECG and No evidence of ischemia. Interpreted by me. Reviewed by me. Administered Medications: 09:51 Drug: NS 0.9% 1000 ml Route: IV; Rate: 1 bolus; Site: right forearm; jd3 10:50 Follow up: Response: No adverse reaction; IV Status: Completed infusion jd3 09:51 Drug: Thiamine 100 mg Route: IV; Rate: bolus; Site: right forearm; jd3 10:50 Follow up: Response: No adverse reaction; IV Status: Completed infusion jd3 09:51 Drug: Ativan (LORazepam) 2 mg Route: IVP; Site: right forearm; jd3 10:50 Follow up: Response: No adverse reaction jd3 11:16 Drug: Ativan (LORazepam) 2 mg Route: IVP; Site: right forearm; jd3 12:15 Follow up: Response: No adverse reaction jd3 11:16 Drug: Pepcid (famotidine) 20 mg Route: IVP; Site: right forearm; jd3 12:15 Follow up: Response: No adverse reaction jd3 11:57 Drug: Ativan (LORazepam) 2 mg Route: IVP; Site: right antecubital; jd3 12:57 Follow up: Response: No adverse reaction jd3 12:37 Drug: Banana Bag - (NS 0.9% 1000 ml, foLIC Acid 1 mg, Thiamine 100 mg, Multivitamin 1 jd3 amp) Route: IV; Rate: 125 ml/hr; Site: right forearm; 15:59 Follow up: Response: No adverse reaction; IV Status: Infusion continued upon admission jd3 Disposition Summary: 12/13/21 11:05 Hospitalization Ordered Hospitalization Status: Inpatient Admission remi Provider: Bruce Abernathy remi Condition: Fair remi Problem: new remi Symptoms: have improved remi Bed/Room Type: Standard remi Location: [facility] ER HOLD(12/13/21 15:30) iw Room Assignment: ERHOLD-(12/13/21 15:30) iw Diagnosis - Altered mental status, unspecified remi - Alcohol abuse with intoxication remi - Alcohol dependence with withdrawal delirium remi Forms: - Medication Reconciliation Form remi - SBAR form remi Signatures: Dispatcher [employer] EDElzbieat Wade Corey, MD MD cha Williams, Irene, RN RN iw Calderon, Audri, RN RN aa5 Davies, Jonathon, RN RN jd3 Corrections: (The following items were deleted from the chart) 09:02 08:57 Suicide Screening (Golf) ordered. remi loved3 15:30 11:05 Intensive Care Unit remi mosher 15:30 11:05 remi mosher
[2021-12-13] MEDS ORDERED: FAMOTIDINE 20 MG/2 ML VIAL IV ONE (11:10)
[2021-12-13 11:27] LABS: Protime INR 1.3
[2021-12-13 11:34] LABS: ALT/SGPT 37 U/L (12-78); AST/SGOT 56 U/L (15-37); Albumin 3.6 g/dL (3.4-5.0); Alkaline Phosphatase 67 U/L (45-117); BUN Blood Urea Nitrogen 14 mg/dL (7-18); Bicarbonate 21 mmol/L (21-32); Bilirubin Direct 0.5 mg/dL (0-0.2); Bilirubin Total 1.4 mg/dL (0.2-1.0); Glucose Level 75 mg/dL (74-106); Protein, Total 8.1 g/dL (6.4-8.2); Sodium Level 131 mmol/L (136-145)
[2021-12-13 11:40] LABS: Magnesium 1.9 mg/dL (1.8-2.4); Troponin High Sensitivity 6.5 pg/mL (<58.9)
--- NOTE | 2021-12-13 11:45 | RAD REPORT ---
EXAM DESCRIPTION: Thao Single View12/13/2021 11:38 am CLINICAL HISTORY: cough COMPARISON: 2019 FINDINGS: The lungs appear clear of acute infiltrate. The heart is mildly enlarged IMPRESSION: No acute abnormalities displayed
[2021-12-13] MEDS ORDERED: MULTIVITAMINS INJ 10 ML, FOLIC ACID 1 MG, THIAMINE HCL 100 MG in NA CHLORIDE 0.9% 1,000 ML IV ONE (12:00)
--- NOTE | 2021-12-13 12:29 | RAD REPORT ---
EXAM DESCRIPTION: CT - Head Brain Wo Cont - 12/13/2021 12:18 pm CLINICAL HISTORY: Alteration of awareness/confusion COMPARISON: None TECHNIQUE: Computed axial tomography of the head was obtained. IV contrast was not requested. All CT scans are performed using dose optimization technique as appropriate and may include automated exposure control or mA/KV adjustment according to patient size. FINDINGS: An intracranial bleed is not seen . The ventricles are normal in caliber. No extra-axial fluid collection is noted. Some of the images are degraded by patient motion artifact. Fluid within the sinuses/ mastoids is not seen. IMPRESSION: No acute intracranial abnormality is seen. If patient's symptoms persist MRI of the bra in would be recommended.
[2021-12-13] MEDS ORDERED: FLUMAZENIL 0.1 MG/ML (5 mL VIAL) IV PRN (14:50)
[2021-12-13] MEDS ORDERED: MORPHINE 2 MG/ML SYR IV PRN (14:50)
[2021-12-13] MEDS ORDERED: ONDANSETRON 4 MG/2 ML VIAL IV PRN (14:50)
[2021-12-13] MEDS ORDERED: ACETAMINOPHEN 500 MG TAB PO PRN (14:50)
[2021-12-13 16:32] VITALS: O2SAT 93; BMI 35.4
[2021-12-13 19:24] LABS: Urine Blood Trace-intact (Negative); Urine Glucose Negative (Negative); Urine Protein Negative (Negative); Urine pH 6.5 (5.0-7.0)
[2021-12-13 19:40] LABS: Barbiturates NEGATIVE (NEGATIVE); Benzodiazepines NEGATIVE (NEGATIVE); Cocaine NEGATIVE (NEGATIVE); METHAMPHETAM NEGATIVE (NEGATIVE); Methadone NEGATIVE (NEGATIVE); Opiates NEGATIVE (NEGATIVE); Phencyclidine NEGATIVE (NEGATIVE); THC Cannibis POSITIVE (NEGATIVE)
[2021-12-13 21:34] VITALS: BP 122/79; TEMP 97.4
[2021-12-14] MEDS ORDERED: ENOXAPARIN 40 MG/0.4 ML SQ SCH (09:00)
[2021-12-14] MEDS ORDERED: FOLIC ACID 1 MG, MULTIVITAMINS INJ 10 ML, THIAMINE HCL 100 MG in NA CHLORIDE 0.9% 1,000 ML IV SCH (09:00)
--- NOTE | 2021-12-14 14:36 | EKG ---
Test Date: 2021-12-13 Test Time: 09:19:37 [employer] Associate: JOSEMANUEL MEASUREMENT RESULTS: Intervals: Rate: 65 AL: 180 QRSD: 92 QT: 434 QTc: 451 Two Dot: P: 37 AL: 180 QRS: 47 T: 58 INTERPRETIVE STATEMENTS: Normal sinus rhythm Normal ECG Compared to ECG 12/13/2021 09:18:00 ST (T wave) deviation no longer present Myocardial infarct finding no longer present Electronically Signed On 12-14-21 14:32:30 CDT by Cliff Valdivia
== END 2021-12-13 21:30 | disposition left against medical advice (07) | DRG 894 ==
LOC: ER 08:49 → ERHOLD 14:50
PROVIDERS: ADMIT Hospitalist; ATTEND Hospitalist
DX: F10.131 Alcohol abuse with withdrawal delirium (principal); I47.1 Supraventricular tachycardia; Z79.899 Other long term (current) drug therapy; Z20.822 Contact with and (suspected) exposure to COVID-19; Z53.29 Procedure and treatment not carried out because of patient's decision for other reasons
CPT/HCPCS: 36415; 70450; 71045; 80048; 80076; 80307; 80320; 80329; 81003; 83735; 83880; 84484; 85025; 85610; 85730; 93005; 99285; J3411; J3490; J7030; U0003

== ENCOUNTER 2021-12-23 19:24 | Emergency (ER) | payer SELFPAY ==
[2021-12-23] MEDS ORDERED: FAMOTIDINE 20 MG/2 ML VIAL IV ONE (20:50)
[2021-12-23] MEDS ORDERED: LORazepam 2 MG/ML VIAL ONE (20:50)
[2021-12-23] MEDS ORDERED: NA CHLORIDE 0.9% 1,000 ML ONE (20:50)
[2021-12-23] MEDS ORDERED: ONDANSETRON 4 MG/2 ML VIAL ONE (20:50)
[2021-12-23 21:24] LABS: Absolute Lymphocytes (CBC) 1.2 K/uL (0.7-4.9); Lymphocytes % 15.1 % (15.3-44.8); MPV 7.8 fL (7.6-11.3); RBC Red Blood Cell Count 4.69 M/uL (4.33-5.43)
[2021-12-23 21:32] LABS: Barbiturates NEGATIVE (NEGATIVE); Benzodiazepines NEGATIVE (NEGATIVE); Cocaine NEGATIVE (NEGATIVE); METHAMPHETAM NEGATIVE (NEGATIVE); Methadone NEGATIVE (NEGATIVE); Opiates NEGATIVE (NEGATIVE); Phencyclidine NEGATIVE (NEGATIVE); THC Cannibis POSITIVE (NEGATIVE)
[2021-12-23 21:52] LABS: Albumin 3.1 g/dL (3.4-5.0); Bilirubin Total 1.1 mg/dL (0.2-1.0); Protein, Total 8.6 g/dL (6.4-8.2)
[2021-12-23 21:55] LABS: Potassium 3.9 mmol/L (3.5-5.1)
[2021-12-23 22:12] LABS: Urine Bacteria <20 /HPF (NONE SEEN); Urine RBC <5 /HPF (NONE SEEN)
--- NOTE | 2021-12-23 23:34 | EDPHYS ---
Physician Documentation [facility] Name: Rusty Read Jr Age: 31 yrs Sex: Male : 1990 Arrival Date: 12/23/2021 Time: 19:27 Bed 15 Private MD: ED Physician Shaheed Yin HPI: 12/23 20:26 This 31 yrs old Male presents to ER via Ambulatory with complaints of cp Diarrhea, Nausea/Vomiting, Insomnia. 20:26 The patient presents to the emergency department with vomiting, that is intermittent, cp diarrhea, that is continuous. Onset: The symptoms/episode began/occurred 3 day(s) ago. 20:26 Associated signs and symptoms: Pertinent positives: abdominal pain, anorexia, diarrhea, cp nausea, vomiting, Pertinent negatives: constipation, fever, GI bleeding. Severity of symptoms: in the emergency department the symptoms are unchanged despite home interventions. 23:30 Possible causes: Patient reports he recently quit drinking alcohol after daily drinking.cp Historical: - Allergies: 20:10 No Known Allergies; jb4 - Home Meds: 20:10 Atenolol Oral [Active]; jb4 - PMHx: 20:10 SVT; jb4 - PSHx: 20:10 Appendectomy; jb4 - Immunization history:: Adult Immunizations up to date. - Social history:: Smoking status: Patient reports the use of cigarette tobacco products, 2 cigarettes per day, Patient uses alcohol, on a daily basis. street drugs, marijuana. ROS: 20:30 Constitutional: Negative for body aches, chills, fever, poor PO intake. cp 20:30 Eyes: Negative for injury, pain, redness, and discharge. cp 20:30 Respiratory: Negative for cough, shortness of breath, wheezing. 20:30 Abdomen/GI: Positive for abdominal pain, nausea, vomiting, and diarrhea, Negative for hematemesis, black/tarry stool, rectal bleeding. 20:30 Neuro: Negative for altered mental status, weakness. cp 20:30 All other systems are negative. Exam: 20:35 Constitutional: The patient appears in no acute distress, alert, awake, cp non-diaphoretic, non-toxic, well developed, well nourished. 20:35 Head/Face: Normocephalic, atraumatic. cp 20:35 Eyes: Periorbital structures: appear normal, Conjunctiva: normal, no exudate, no injection, Sclera: no appreciated abnormality, Lids and lashes: appear normal, bilaterally. 20:35 ENT: External ear(s): are unremarkable, Nose: is normal, Mouth: Lips: moist, Oral mucosa: pink and intact, moist, Posterior pharynx: Airway: no evidence of obstruction, patent. 20:35 Neck: ROM/movement: is normal, is supple, without pain, no range of motions limitations. 20:35 Chest/axilla: Inspection: normal, Palpation: is normal, no crepitus, no tenderness. 20:35 Cardiovascular: Rate: bradycardic, Rhythm: regular. 20:35 Respiratory: the patient does not display signs of respiratory distress, Respirations: normal, no use of accessory muscles, no retractions, labored breathing, is not present, Breath sounds: are clear throughout, no decreased breath sounds, no stridor, no wheezing. 20:35 Abdomen/GI: Inspection: abdomen appears normal, Bowel sounds: active, all quadrants, Palpation: soft, in all quadrants, mild abdominal tenderness, in the epigastric area, rebound tenderness, is not appreciated, involuntary guarding, is not appreciated. 20:35 Back: pain, is absent, ROM is normal. 20:35 Neuro: Orientation: to person, place \T\ time. Mentation: is normal, Motor: moves all fours, strength is normal, Sensation: is normal. 20:35 Psych: Behavior/mood is cooperative, Affect is calm, Patient has no thoughts/intents to harm self or others. Judgement / Insight is normal. Delusions/hallucinations are not present. 21:15 ECG was reviewed by the Attending Physician. cp Vital Signs: 20:07 BP 160 / 98; Pulse 54; Resp 20; Temp 97.5(TE); Pulse Ox 99% on R/A; Weight 117.93 kg jb4 (R); Height 5 ft. 9 in. (175.26 cm) (R); Pain 8/10; 20:30 BP 153 / 83; Pulse 56; Resp 18; Pulse Ox 100% on R/A; Pain 0/10; alejandra 21:30 BP 117 / 64; Pulse 54; Resp 16; Pulse Ox 99% on R/A; Pain 0/10; alejandra 22:41 BP 143 / 73; Pulse 54; Resp 16; Pulse Ox 100% on R/A; Pain 0/10; alejandra 23:45 BP 132 / 75; Pulse 60; Resp 18; Pulse Ox 97% on R/A; lp1 20:07 Body Mass Index 38.39 (117.93 kg, 175.26 cm) jb4 MDM: 20:24 Patient medically screened. cp 21:00 Differential diagnosis: gastritis, cholecystitis, pancreatitis, diverticulitis, viral cp gastroenteritis, gastroenteritis. 23:32 Data reviewed: vital signs, nurses notes, lab test result(s), EKG, radiologic studies, cp CT scan. 23:32 Test interpretation: by ED physician or midlevel provider: ECG. Counseling: I had a cp detailed discussion with the patient and/or guardian regarding: the historical points, exam findings, and any diagnostic results supporting the discharge/admit diagnosis, lab results, radiology results, to return to the emergency department if symptoms worsen or persist or if there are any questions or concerns that arise at home. Response to treatment: the patient's symptoms have markedly improved after treatment, and as a result, I will discharge patient. Special discussion: Based on the patient's Hx, exam, and Dx evaluation, there is no indication for emergent surgery or inpatient Tx. It is understood by the patient/guardian that if the Sx's persist or worsen they need to return immediately for re-evaluation. 12/23 20:25 Order name: CBC with Diff; Complete Time: 23:09 cp 12/23 23:09 Interpretation: Normal except: PLT 107; ROBERT% 76.1; LYM% 15.1. cp 12/23 20:25 Order name: CMP; Complete Time: 23:09 cp 12/23 23:10 Interpretation: Normal except: NA 133; AST 52; BILIT 1.1; TP 8.6; ALB 3.1; GLOB 5.5; cp A/G 0.6. 12/23 20:25 Order name: Lipase; Complete Time: 23:09 cp 12/23 20:25 Order name: Urine Microscopic Only; Complete Time: 23:09 cp 12/23 20:25 Order name: CT Abd/Pelvis - IV Contrast Only cp 12/23 20:27 Order name: UDS; Complete Time: 23:09 cp 12/23 20:25 Order name: IV Saline Lock; Complete Time: 21:16 cp 05/15 20:25 Order name: Labs collected and sent; Complete Time: 21:16 cp 12/23 20:25 Order name: Urine Dipstick-Ancillary (obtain specimen) cp 12/23 20:25 Order name: EKG; Complete Time: 20:26 cp 12/23 20:25 Order name: EKG - Nurse/Tech; Complete Time: 21:15 cp 12/23 23:27 Order name: PO challenge; Complete Time: 00:04 cp EC:15 Rate is 48 beats/min. Rhythm is regular. [place] interval is normal. QRS interval is normal. cp QT interval is normal. T waves are Inverted in lead aVR. Interpreted by me. Reviewed by me. Administered Medications: 21:15 Drug: NS 0.9% 1000 ml Route: IV; Rate: 1 bolus; Site: right antecubital; alejandra 23:22 Follow up: IV Status: Completed infusion; IV Intake: 1000ml alejandra 21:15 Drug: Ativan (LORazepam) 1 mg Route: IVP; Site: right antecubital; alejandra 21:16 Drug: Pepcid (famotidine) 20 mg Route: IVP; Site: right antecubital; alejandra 21:16 Drug: Zofran (Ondansetron) 4 mg Route: IVP; Site: right antecubital; alejandra Disposition: 12/24 05:39 Co-signature as Attending Physician, Shaheed Yin MD. [email or web address] Disposition Summary: 12/23/21 23:33 Discharge Ordered Location: Home cp Problem: new cp Symptoms: have improved cp Condition: Stable cp Diagnosis - Diarrhea, unspecified cp - Nausea with vomiting, unspecified cp Followup: cp - With: Private Physician - When: 2 - 3 days - Reason: Recheck today's complaints Discharge Instructions: - Discharge Summary Sheet cp - Diarrhea, Adult cp - Insomnia cp - Nausea and Vomiting, Adult cp Forms: - Medication Reconciliation Form cp - Thank You Letter cp - Antibiotic Education cp - Prescription Opioid Use cp Prescriptions: - Vistaril 50 mg Oral capsule - take 1 capsule by ORAL route At bedtime As needed difficulty sleeping; 30 cp capsule; Refills: 0, Product Selection Permitted - Zofran 4 mg Oral Tablet - take 1 tablet by ORAL route every 12 hours As needed; 20 tablet; Refills: 0, cp Product Selection Permitted Signatures: Dispatcher [employer] Hardeep Jamil PA PA cp Bryson, James, RN RN jb4 Shaheed Yin MD MD [id number] Michaelle Andrew RN RN alejandra
--- NOTE | 2021-12-23 23:34 | ER ---
Nurse's Notes [facility] Name: Rusty Read Jr Age: 31 yrs Sex: Male : 1990 Arrival Date: 12/23/2021 Time: 19:27 Bed 15 Private MD: Diagnosis: Diarrhea, unspecified;Nausea with vomiting, unspecified Presentation: 12/23 20:07 Chief complaint: Patient states: I started having diarrhea 2 days ago, fever, and jb4 vomiting. I cannot keep anything down. I cannot sleep and am having night sweats. I also started having chest pain 2-3 days ago, it isn't as bad right now, just feels tight. Coronavirus screen: At this time, the client does not indicate any symptoms associated with coronavirus-19. Ebola Screen: No symptoms or risks identified at this time. Initial Sepsis Screen: Does the patient meet any 2 criteria? No. Patient's initial sepsis screen is negative. Does the patient have a suspected source of infection? No. Patient's initial sepsis screen is negative. Risk Assessment: Do you want to hurt yourself or someone else? Patient reports no desire to harm self or others. Onset of symptoms was December 23, 2021. Transition of care: patient was not received from another setting of care. 20:07 Method Of Arrival: Ambulatory jb4 20:07 Acuity: CINDY 3 jb4 Triage Assessment: 20:33 General: Appears in no apparent distress. Behavior is calm, cooperative. alejandra 20:33 Pain: Denies pain. alejandra Historical: - Allergies: 20:10 No Known Allergies; jb4 - Home Meds: 20:10 Atenolol Oral [Active]; jb4 - PMHx: 20:10 SVT; jb4 - PSHx: 20:10 Appendectomy; jb4 - Immunization history:: Adult Immunizations up to date. - Social history:: Smoking status: Patient reports the use of cigarette tobacco products, 2 cigarettes per day, Patient uses alcohol, on a daily basis. street drugs, marijuana. Screenin:32 Abuse screen: Denies threats or abuse. Denies injuries from another. Nutritional alejandra screening: No deficits noted. Tuberculosis screening: No symptoms or risk factors identified. Fall Risk None identified. Assessment: 20:23 Reassessment: Patient appears in no apparent distress at this time. No changes from alejandra previously documented assessment. The pt has multiple complaints and appears in NAD. He ambulated to room #15, with a steady gait. Awaiting orders. GI: Abdomen is obese, obese. 12/24 00:03 Reassessment: Patient is alert, oriented x 3, equal unlabored respirations, skin lp1 warm/dry/pink. Patient reports nausea has improved Patient states feeling better. Vital Signs: 12/23 20:07 BP 160 / 98; Pulse 54; Resp 20; Temp 97.5(TE); Pulse Ox 99% on R/A; Weight 117.93 kg jb4 (R); Height 5 ft. 9 in. (175.26 cm) (R); Pain 8/10; 20:30 BP 153 / 83; Pulse 56; Resp 18; Pulse Ox 100% on R/A; Pain 0/10; alejandra 21:30 BP 117 / 64; Pulse 54; Resp 16; Pulse Ox 99% on R/A; Pain 0/10; alejandra 22:41 BP 143 / 73; Pulse 54; Resp 16; Pulse Ox 100% on R/A; Pain 0/10; alejandra 23:45 BP 132 / 75; Pulse 60; Resp 18; Pulse Ox 97% on R/A; lp1 20:07 Body Mass Index 38.39 (117.93 kg, 175.26 cm) jb4 ED Course: 19:27 Patient arrived in ED. bp1 19:41 Hardeep Graham PA is PHCP. cp 19:41 Shaheed Yin MD is Attending Physician. cp 20:10 Triage completed. jb4 20:10 Arm band placed on right wrist. jb4 20:22 Michaelle Andrew, RN is Primary Nurse. alejandra 20:32 No provider procedures requiring assistance completed. alejandra 20:33 Bed in low position. Call light in reach. Adult w/ patient. alejandra 21:15 UDS Sent. alejandra 21:16 CBC with Diff Sent. alejandra 21:17 classroom monitor on. Pulse ox on. NIBP on. alejandra 21:17 CMP Sent. alejandra 21:17 Lipase Sent. alejandra 21:17 Urine Microscopic Only Sent. alejandra 21:17 Inserted saline lock: 20 gauge in right antecubital area, using aseptic technique. alejandra Blood collected. 22:34 CT Abd/Pelvis - IV Contrast Only In Process Unspecified. EDMS 23:55 IV discontinued, No redness/swelling at site. Pressure dressing applied. lp1 Administered Medications: 21:15 Drug: NS 0.9% 1000 ml Route: IV; Rate: 1 bolus; Site: right antecubital; alejandra 23:22 Follow up: IV Status: Completed infusion; IV Intake: 1000ml alejandra 21:15 Drug: Ativan (LORazepam) 1 mg Route: IVP; Site: right antecubital; alejandra 21:16 Drug: Pepcid (famotidine) 20 mg Route: IVP; Site: right antecubital; alejandra 21:16 Drug: Zofran (Ondansetron) 4 mg Route: IVP; Site: right antecubital; alejandra Medication: 20:33 VIS not applicable for this client. alejandra Intake: 23:22 IV: 1000ml; Total: 1000ml. alejandra Outcome: 20:33 Condition: stable alejandra 23:33 Discharge ordered by MD. cp 23:55 Discharged to home ambulatory, with family. lp1 23:55 Condition: good 23:55 Discharge instructions given to patient, Instructed on discharge instructions, follow up and referral plans. medication usage, Demonstrated understanding of instructions, follow-up care, medications, Prescriptions given X 2. /16 00:00 Patient left the ED. lp1 Signatures: Dispatcher [employer] EDMS Juju Ribera, RN RN lp1 Hardeep Graham PA PA cp Bryson, James, RN RN jb4 Yecenia Cifuentes Brenda, RN RN alejandra
[2021-12-24 00:32] VITALS: TEMP 97.5
[2021-12-24 00:36] VITALS: BP 143/73; O2SAT 100
--- NOTE | 2021-12-24 10:04 | EKG ---
Test Date: 2021-12-23 Test Time: 21:10:53 Chemical Engineering Technologist: MEASUREMENT RESULTS: Intervals: Rate: 48 KS: 164 QRSD: 88 QT: 474 QTc: 423 Shirley: P: 26 KS: 164 QRS: 68 T: 49 INTERPRETIVE STATEMENTS: Marked sinus bradycardia with premature atrial complexes Abnormal ECG Compared to ECG 12/13/2021 09:19:37 Atrial premature complex(es) now present Sinus rhythm no longer present Electronically Signed On 12-24-21 10:02:30 CDT by Cliff Valdivia
--- NOTE | 2021-12-24 14:16 | RAD REPORT ---
EXAM DESCRIPTION: CT - Abdomen Pelvis W Contrast - 12/24/2021 7:03 am CLINICAL HISTORY: 31 years, Male, Diarrhea COMPARISON: None TECHNIQUE: Contrast-enhanced images of the abdomen and pelvis were performed utilizing 5 mm slice th ickness at 5 mm interval reconstruction from the lung bases to the ischial tuberosities after the adm inistration IV contrast. In addition multiplanar reformats in the coronal and sagittal plane were obtained and reviewed. This exam was performed according to our departmental dose-optimization protocol, which includes auto mated exposure control, adjustment of the mA and/or kV according to patient size and/or use of iterat sherly reconstruction technique. FINDINGS: The lung bases demonstrate to be clear. The liver demonstrate decreased attenuation corresponding to mild fatty infiltration. Otherwise liver , gallbladder, pancreas, spleen and adrenal glands demonstrate to be unremarkable, no focal lesions a re noted. The kidneys demonstrate normal uptake of contrast media. No evidence for nephrolithiasis and/or hydro nephrosis. Grossly the unopacified stomach, small bowel and large bowel demonstrate to be within normal limits. Scattered diverticuli are noted within the sigmoid colon. The appendix was not visualized althoug h no significant inflammatory changes are seen within the right lower. There is minimal diverticulosi s within the sigmoid colon The urinary bladder demonstrate to be unremarkable. The prostate gland is normal. The aorta demon strate to be normal. There is no retroperitoneal lymphadenopathy. There is no ascites. The rest of the soft tissue and bony structures are within normal limits. IMPRESSION: No acute intra-abdominal pathology. Mild fatty infiltration of the liver. Minimal sigmoid diverticulosis without evidence of acute diverticulitis. Electronically signed by: Thiago Monte MD 12/23/2021 11:01 PM CDT Due to temporary technical issues with the PACS/Fluency reporting system, reports are being signed by the in house radiologist without review as a courtesy to ensure prompt reporting. The interpreting r adiologist is fully responsible for the content of the report.
== END 2021-12-24 | disposition home or self-care (01) ==
LOC: ER 19:24
DX: R19.7 Diarrhea, unspecified (principal); R11.2 Nausea with vomiting, unspecified; F17.210 Nicotine dependence, cigarettes, uncomplicated; I47.1 Supraventricular tachycardia
CPT/HCPCS: 36415; 74177; 80053; 80307; 81015; 83690; 85025; 93005; 96361; 96374; 96375; 99284; J2405; J3490; J7030; Q9967

== ENCOUNTER 2022-12-03 21:13 | Emergency (ER) | payer OTHER, SELFPAY ==
[2022-12-03 22:10] LABS: Absolute Lymphocytes (CBC) 2.7 K/uL (0.7-4.9); Hematocrit 44.6 % (39.6-49.0); MCV 90.9 fL (80-100); MPV 7.7 fL (7.6-11.3); RBC Red Blood Cell Count 4.91 M/uL (4.33-5.43)
[2022-12-03 22:25] LABS: Potassium 3.7 mEq/L (3.5-5.1)
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
[2022-12-04 02:36] VITALS: TEMP 96.7; O2SAT 98
[2022-12-04 02:38] VITALS: BP 124/75
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
--- NOTE | 2022-12-05 11:49 | RAD REPORT ---
EXAM DESCRIPTION: RAD - Femur Right - 12/04/2022 12:48 am Femur Right. COMPARISON: None. TECHNIQUE: Two views of the right femur: AP and lateral radiographs. FINDINGS: Acute mildly displaced fracture of the posterior right acetabulum. Questionable extension medially. Right hip joint alignment is maintained. No radiopaque foreign object in the soft tissues. Excreted contrast in the urinary bladder. IMPRESSION: Acute mildly displaced fracture of the posterior right acetabulum. Correlation with CT i s recommended if not already obtained. This finding is already known by the emergency room by the time of this dictation over-read. Electronically signed by: Zelda Barry MD 12/04/2022 9:11 PM CDT Due to temporary technical issues with the PACS/Fluency reporting system, reports are being signed by the in house radiologists without review as a courtesy to insure prompt reporting. The interpreting radiologist is fully responsible for the content of the report.
== END 2022-12-04 01:41 | disposition short-term general hospital (02) ==
LOC: ER 21:13
DX: S32.401A Unspecified fracture of right acetabulum, initial encounter for closed fracture (principal); F17.210 Nicotine dependence, cigarettes, uncomplicated
CPT/HCPCS: 85025; 80048; 36415; 86900; 86850; 86901; 70450; 72125; 71260; 74177; 73552 ×2; Q9967; G0480; 99285

== ENCOUNTER 2024-07-19 15:19 | Emergency (ER) | payer OTHER ==
--- OUTSIDE RECORDS SUMMARY | 2024-07-19 15:23 | XMS REPORT | Continuity of Care Document ---
Author Name Unknown Address [address] [facility] [place]. [address] [place] [address] [facility] Address [address] [facility] 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 Name Role Phone SUSAN DOMINGUEZ Attending Clinician Unavailable [id number] Attending Clinician Unavailable Payers Payer Name Policy Type Policy Number Effective Date Expirati on Date Source [facility] JANICE ALVARADO COPAY FOCUS 9 [id number] 2024 00:00:00 Problems Condition Name Condition Details Condition Category Status Onset Date Resolution Date Last Treatment Date Treating Clinician Comments Source Well adult exam Well adult exam Disease Active 2023-08 00:00: 00 Henna Sharma - Externa krishna SVT (supravent ricular tachycardi a) (CMS-HCC) (multi HCC) SVT (supravent ricular tachycardi a) (CMS-HCC) (multi HCC) Disease Active Henna Sedaysiold - Externa l History of cardiac radiofrequ ency ablation History of cardiac radiofrequ ency ablation Disease Active Henna Admaesold - Externa l Cardiac arrhythmia Cardiac arrhythmia Disease Active Henna Seybold - Externa l History of hip surgery History of hip surgery Disease Active Henna Adamesold - Externa l Family history of coronary artery disease in father Family history of coronary artery disease in father Disease Active Henna Sedaysiold - Externa l Family history of diabetes mellitus (DM) Family history of diabetes mellitus (DM) Disease Active Henna Sedaysiold - Externa l Severe obesity Severe obesity Disease Active Henna Sedaysiold - Externa l Social History Social Habit Start Date Stop Date Quantity Comments Source Sexual orientation K elsey Seybold - External History of tobacco use Cigarette Smoker Henna victor - External Education 2024-06-29 00:00:00 2024-06-29 00:00:00 8 Henna Sharma - External Cigarettes smoked current (pack per day) - Reported 2024-06-29 00:00:00 2024-06-29 00:00:00 Henna Abebeelena - External Cigarette pack-years 2024-06-29 00:00:00 2024-06-29 00:00:00 Henna Abebedaysivalente - External Tobacco use and exposure 2024-06-29 00:00:00 2024-06-29 00:00:00 Smokeless tobacco non-user Henna Abebedaysivalente - External Alcoholic beverage intake 2024-06-29 00:00:00 2024-06-29 00:00:00 Ex-drinker (finding) Henna Abebeelena - External History of Social function 2024-06-29 00:00:00 2024-06-29 00:00:00 Henna Abebeelena - External Sex 2024-04-27 09:07:05 2024-04-27 09:07:05 Male (finding) Henna Abebedaysivalente - External Sex assigned at 1990 00:00:00 1990 00:00:00 Henna Sharma - External Smoking Status Start Date Stop Date Source Smokes tobacco daily 2024-06-29 00:00:00 Henna Sharma - External Medications Ordered Medication Name Filled Medication Name Start Date Stop Date Current Medication? Ordering Clinician Indication Dosage Frequency Signature (SIG) Comments Components Source Atenolol 100 MG oral Tablet 2023-08 09:58: 10 06-29 00:00 :00 No 1637 100mg QD Take 1 tablet (100 mg total) by mouth daily. Indication s: Supraventr icular Tachycardi a Henna Sharma - Externa l Atenolol 100 MG oral Tablet 2023-08 00:00: 00 Yes 1637 100mg QD Take 1 tablet (100 mg total) by mouth daily. Indication s: Supraventr icular Tachycardi a Henna Sharma - Externa l Vital Signs Vital Name Observation Time Observation Value Comments S ource Systolic blood pressure 2024-06-29 15:33:00 110 mm[Hg] Henna Adameso ld - External Diastolic blood pressure 2024-06-29 15:33:00 70 mm[Hg] Henna Adameso ld - External Heart rate 2024-06-29 15:33:00 80 /min Cristal y Seybold - External Body temperature 2024-06-29 15:33:00 36.61 Sandrine Henna Abebeybold - External Respiratory rate 2024-06-29 15:33:00 16 /min Henna Abebeybold - External Body height 2024-06-29 15:33:00 175.3 cm Ashley fernando Seybold - External Body weight 2024-06-29 15:33:00 118.842 kg Ashley fernando Seybold - External BMI 2024-06-29 15:33:00 38.69 kg/m2 Ashley fernando Seybold - External Oxygen saturation in Arterial blood by Pulse oximetry 2024-06-29 15:33:00 100 /min Henna Oneill ld - External Encounters Start Date/Time End Date/Time Encounter Type Admission Type Attending [facility] Care Department Encounter ID Source 2024-08-31 14:00:00 2024-08-31 14:00:00 Outpatient GILBERT DOMINGUEZAND HENNA SEAY [id number] Henna Sharma 2024-07-01 00:00:00 2024-07-01 00:00:00 Outpatient SUSAN DOMINGUEZ [id number] Henna Sharma 2024-06-29 10:50:00 2024-06-29 10:50:00 Outpatient LAB90 HENNA SEAY [id number] Henna Sharma 2024-06-29 09:30:00 2024-06-29 09:30:00 Outpatient SUSAN DOMINGUEZ [id number] Henna Sharma 2024-02-24 15:30:41 2024-02-24 15:30:41 Outpatient SFA SFA [id number] Imer Moreno
--- NOTE | 2024-07-19 17:19 | EDPHYS ---
Physician Documentation [facility] Name: Rusty Read Jr Age: 34 yrs Sex: Male : 1990 Arrival Date: 07/19/2024 Time: 15:19 Bed IW2 Private MD: ED Physician Daphney Kolb HPI: 07/19 17:19 This 34 yrs old Male presents to ER via Ambulatory with complaints of Fall gb1 Injury. 17:19 34-year-old male slipped and fell in the rain and fell on his left hip. He has a gb1 history of a right hip replacement due to a fracture about the left hip now is sore since the fall. He is able to get up and walk without assistance. He denies any head strike or any loss of consciousness with the fall. He has a history of SVT.. Historical: - Allergies: 16:01 No Known Allergies; hb - Home Meds: 16:01 Atenolol Oral [Active]; hb - PMHx: 16:01 SVT; hb - PSHx: 16:01 Appendectomy; hb 16:02 Pelvis Fx; hb Exam: 17:19 Constitutional: This is a well developed, well nourished patient who is awake, alert, gb1 and in no acute distress. Head/Face: Normocephalic, atraumatic. Eyes: Pupils equal round and reactive to light, extra-ocular motions intact. Lids and lashes normal. Conjunctiva and sclera are non-icteric and not injected. Cornea within normal limits. Periorbital areas with no swelling, redness, or edema. ENT: Nares patent. No nasal discharge, no septal abnormalities noted. Tympanic membranes are normal and external auditory canals are clear. Oropharynx with no redness, swelling, or masses, exudates, or evidence of obstruction, uvula midline. Mucous membranes moist. Neck: Trachea midline, no thyromegaly or masses palpated, and no cervical lymphadenopathy. Supple, full range of motion without nuchal rigidity, or vertebral point tenderness. No Meningismus. Chest/axilla: Normal chest wall appearance and motion. Nontender with no deformity. No lesions are appreciated. Cardiovascular: Regular rate and rhythm with a normal S1 and S2. No gallops, murmurs, or rubs. Normal PMI, no JVD. No pulse deficits. Respiratory: Lungs have equal breath sounds bilaterally, clear to auscultation and percussion. No rales, rhonchi or wheezes noted. No increased work of breathing, no retractions or nasal flaring. Back: No spinal tenderness. No costovertebral tenderness. Full range of motion. Skin: Warm, dry with normal turgor. Normal color with no rashes, no lesions, and no evidence of cellulitis. MS/ Extremity: Pulses equal, no cyanosis. Neurovascular intact. Full, normal range of motion. Vital Signs: 15:55 BP 142 / 82; Pulse 85; Resp 18; Temp 97.6; Pulse Ox 100% on R/A; Weight 117.93 kg; hb Height 5 ft. 9 in. ; Pain 8/10; 15:55 Body Mass Index 38.39 (117.93 kg, 175.26 cm) hb 15:55 Pain Scale: Adult hb MDM: 16:17 Medical Screening Exam initiated gb1 17:19 Differential diagnosis: abrasion, closed head injury, contusion, fracture, sprain, gb1 strain. Data reviewed: vital signs, nurses notes. Administered Medications: No medications were administered Disposition Summary: 07/19/24 17:19 Discharge Ordered Notes: Location: Home gb1 Condition: Stable gb1 Diagnosis - Contusion of left hip gb1 - Fall (on)(from) sidewalk curb gb1 Followup: gb1 - With: Private Physician - When: - Reason: Recheck today's complaints Discharge Instructions: - Discharge Summary Sheet gb1 - Hip Pain gb1 Forms: - Work release form ss - Medication Reconciliation Form gb1 - Antibiotic Education gb1 - Prescription Opioid Use gb1 - Patient Portal Instructions gb1 - Leadership Thank You Letter gb1 Signatures: Gill Cedillo RN RN Daphney Mera MD MD gb1 Corrections: (The following items were deleted from the chart) 16:02 16:01 Home Meds: None; hb hb 16:02 16:01 PSHx: Pelvis Fx (Appendectomy); hb hb
--- NOTE | 2024-07-19 17:19 | ER ---
Nurse's Notes [facility] Name: Rusty Read Jr Age: 34 yrs Sex: Male : 1990 Arrival Date: 07/19/2024 Time: 15:19 Bed IW2 Private MD: Diagnosis: Contusion of left hip;Fall (on)(from) sidewalk curb Presentation: 07/19 15:55 Chief complaint: Bilateral hip pain after mechanical fall from standing 2 days ago. hb Coronavirus screen: At this time, the client does not indicate any symptoms associated with coronavirus-19. Ebola Screen: No symptoms or risks identified at this time. Initial Sepsis Screen: Does the patient meet any 2 criteria? No. Patient's initial sepsis screen is negative. Does the patient have a suspected source of infection? No. Patient's initial sepsis screen is negative. Risk Assessment: Do you want to hurt yourself or someone else? Patient reports no desire to harm self or others. Onset of symptoms was July 17, 2024. 15:55 Method Of Arrival: Ambulatory hb 15:55 Acuity: CINDY 4 hb Historical: - Allergies: 16:01 No Known Allergies; hb - Home Meds: 16:01 Atenolol Oral [Active]; hb - PMHx: 16:01 SVT; hb - PSHx: 16:01 Appendectomy; hb 16:02 Pelvis Fx; hb Screenin:55 Abuse screen: Denies threats or abuse. Denies injuries from another. Nutritional ss screening: No deficits noted. Tuberculosis screening: Never had TB. Assessment: 17:55 General: Appears in no apparent distress. comfortable, Behavior is calm, cooperative. ss Neuro: Level of Consciousness is awake, alert, obeys commands, Oriented to person, place, time, situation. Respiratory: Airway is patent Respiratory effort is even, unlabored, Respiratory pattern is regular, symmetrical. EENT: Nares are clear. Derm: Skin is intact, is healthy with good turgor, Skin is pink, warm \T\ dry. normal. Musculoskeletal: Circulation, motion, and sensation intact. Range of motion: intact in all extremities, Swelling absent. Vital Signs: 15:55 BP 142 / 82; Pulse 85; Resp 18; Temp 97.6; Pulse Ox 100% on R/A; Weight 117.93 kg; hb Height 5 ft. 9 in. ; Pain 8/10; 15:55 Body Mass Index 38.39 (117.93 kg, 175.26 cm) hb 15:55 Pain Scale: Adult hb ED Course: 15:23 Patient arrived in ED. mr 15:36 Daphney Kolb MD is Attending Physician. gb1 16:01 Triage completed. hb 16:02 Arm band placed on. hb 17:55 Patient has correct armband on for positive identification. Bed in low position. ss 17:55 No provider procedures requiring assistance completed. Patient did not have IV access ss during this emergency room visit. Administered Medications: No medications were administered Medication: 17:55 VIS not applicable for this client. ss Outcome: 17:19 Discharge ordered by . gb1 17:55 Discharged to home ambulatory, ss 17:55 Condition: good 17:55 Discharge instructions given to patient, Instructed on discharge instructions, follow up and referral plans. Demonstrated understanding of instructions, follow-up care, 17:56 Patient left the ED. ss Signatures: Lavinia Viveros, Reg Reg Jennifer Manley, RN RN Gill Cedillo, RN RN Daphney Kolb MD MD gb1 Corrections: (The following items were deleted from the chart) 16:02 16:01 Home Meds: None; hb hb 16:02 16:01 PSHx: Pelvis Fx (Appendectomy); hb hb
[2024-07-19 22:39] VITALS: BP 142/82; TEMP 97.6; O2SAT 100
== END 2024-07-19 17:56 | disposition home or self-care (01) ==
LOC: ER 15:19
DX: S70.02XA Contusion of left hip, initial encounter (principal); W10.1XXA Fall (on)(from) sidewalk curb, initial encounter
CPT/HCPCS: 99282

== ENCOUNTER 2024-12-03 08:36 | Emergency (ER) | payer OTHER ==
--- OUTSIDE RECORDS SUMMARY | 2024-12-03 08:39 | XMS REPORT | Continuity of Care Document ---
Author Name Unknown Address [address] [facility] [place] [place] [address] Organization [facility] Address [address] [facility]. 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 Name Role Phone SUSAN DOMINGUEZ Attending Clinician Unavailable [id number] Attending Clinician Unavailable Payers Payer Name Policy Type Policy Number Effective Date Expirati on Date Source [facility] JANICE ALVARADO COPAY FOCUS 9 [id number] 2024 00:00:00 Problems Condition Name Condition Details [...] cardiac radiofrequ ency ablation Disease Active Henna Adamesold - Externa l Cardiac arrhythmia Cardiac arrhythmia Disease Active Henna Adamesold - Externa l History of hip surgery History of hip surgery Disease Active Henna Adamesold - Externa l Family history of coronary artery disease in father Family history of coronary artery disease in father Disease Active Henna Adamesold - Externa l Family history of diabetes mellitus (DM) Family history of diabetes mellitus (DM) Disease Active Henna Adamesold - Externa l Severe obesity Severe obesity Disease Active Henna Adamesold - Externa l Social History Social Habit Start Date Stop Date Quantity Comments Source Sexual orientation K elsey Seybold - External History of tobacco use Cigarette Smoker Henna victor - External Education 2024-06-29 00:00:00 2024-06-29 00:00:00 8 Henna Abebedaysivalente - External Cigarettes smoked current (pack per day) - Reported 2024-06-29 00:00:00 2024-06-29 00:00:00 Henna Abebeelena - External Cigarette pack-years 2024-06-29 00:00:00 2024-06-29 00:00:00 Henna Abeebdaysivalente - External Tobacco use and exposure 2024-06-29 00:00:00 2024-06-29 00:00:00 Smokeless tobacco non-user Henna Abebedaysivalente - External Alcoholic beverage intake 2024-06-29 00:00:00 2024-06-29 00:00:00 Ex-drinker (finding) Henna Abebeelena - External History of Social function 2024-06-29 00:00:00 2024-06-29 00:00:00 Henna elena - External Sex 2024-04-27 09:07:05 2024-04-27 09:07:05 Male (finding) Henna Abebedaysivalente - External Sex assigned at 1990 00:00:00 1990 00:00:00 Henna Adamesvalente - External Smoking Status Start Date Stop Date Source Smokes tobacco daily 2024-06-29 00:00:00 Henna Abebedaysivalente - External Medications Ordered Medication Name Filled [...] blood pressure 2024-06-29 15:33:00 110 mm[Hg] Henna Oneill ld - External Diastolic blood pressure 2024-06-29 15:33:00 70 mm[Hg] Henna Adameso ld - External Heart rate 2024-06-29 15:33:00 80 /min Cristal y Zacariasold - External Body temperature 2024-06-29 15:33:00 36.61 Sandrine Henna Adamesold - External Respiratory rate 2024-06-29 15:33:00 16 /min Henna Adamesold - External Body height 2024-06-29 15:33:00 175.3 cm Ashley fernando Seybold - External Body weight 2024-06-29 15:33:00 118.842 kg Ashley fernando Seybold - External BMI 2024-06-29 15:33:00 38.69 kg/m2 Ashley fernando Seybold - External Oxygen saturation in Arterial blood by Pulse oximetry 2024-06-29 15:33:00 100 /min Henna Oneill ld - External Encounters Start Date/Time End Date/Time Encounter Type Admission Type Attending [facility] Care Department Encounter ID Source 2024-08-31 14:00:00 2024-08-31 14:00:00 Outpatient ALBERTO SUSAN SEAY [id number] Henna Sharma 2024-07-01 00:00:00 2024-07-01 00:00:00 Outpatient SUSAN DOMINGUEZ [id number] Henna Sharma 2024-06-29 10:50:00 2024-06-29 10:50:00 Outpatient LAB90 HENNA SEAY [id number] Henna Sharma 2024-06-29 09:30:00 2024-06-29 09:30:00 Outpatient SUSAN DOMINGUEZ [id number] Henna Sharma 2024-02-24 15:30:41 2024-02-24 15:30:41 Outpatient SFA SFA [id number] Imer Moreno
--- NOTE | 2024-12-03 10:07 | RAD REPORT ---
Exam:Shoulder Right 2+ Views History: Right shoulder pain Findings: No fracture or dislocation seen
--- NOTE | 2024-12-03 10:07 | RAD REPORT ---
Exam:Shoulder Left 2+ Views HISTORY: Left shoulder pain FINDINGS: No fracture or dislocation seen
--- NOTE | 2024-12-03 10:21 | RAD REPORT ---
EXAMINATION: CT HEAD WITHOUT CONTRAST CT CERVICAL SPINE WITHOUT CONTRAST CLINICAL INDICATION: Head and neck injury several years ago. Head and neck pain TECHNIQUE: Axial CT images from the skull base to the vertex without intravenous contrast. Axial CT i mages through the cervical spine were obtained without intravenous contrast. Sagittal and coronal reformatted images were created from the data set. Coronal and sagittal reformatted images were creat ed from the data set. One or more of the following dose reduction techniques were used: Automated exposure control, adjustment of the mA and/or kV according to patient size, and/or iterative reconstr uction. Unless otherwise specified, incidental findings do not require dedicated imaging follow-up. [id number]. Comparison: 2022 FINDINGS: An intracranial bleed is not seen. Ventricles are normal in caliber. No significant hypodensity within the brain No extra-axial fluid collection. No fluid within the sinuses/mastoids No fracture or dislocation is seen involving the cervical spine. Mild spondylosis IMPRESSION: No acute intracranial abnormality noted A cervical fracture is not seen. 

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
--- NOTE | 2024-12-03 10:24 | RAD REPORT ---
EXAM:Thorax Wo Con CLINICAL INDICATION: Chest pain TECHNIQUE: CT chest performed.. Axial, sagittal and coronal reconstructions were obtained. One or mor e of the following dose reduction techniques were used: Automated exposure control, adjustment of the mA and/or kV according to the patient size, and/or iterative reconstruction. Unless otherwise specified, incidental findings do not require dedicated imaging follow-up. [id number]. COMPARISON: 2022 FINDINGS: Evaluation of the mediastinum, cora and vessels is limited secondary to lack of IV contrast administr ation. Lungs are clear No mediastinal or hilar lymphadenopathy No pleural effusion. No pericardial effusion. Coronary arterial calcifications. Cirrhotic liver IMPRESSION: No acute abnormalities displayed
[2024-12-03] MEDS ORDERED: KETOROLAC 30 MG/ML INJ ONE (10:34)
[2024-12-03] MEDS ORDERED: dexAMETHasone 10 MG/ML VIAL ONE (11:18)
[2024-12-03] MEDS ORDERED: DIAZEPAM 5 MG TABLET ONE (11:18)
[2024-12-03 12:01] VITALS: TEMP 97.8
[2024-12-03 12:07] VITALS: BP 132/85; O2SAT 98
== END 2024-12-03 11:34 | disposition home or self-care (01) ==
LOC: ER 08:36
DX: R29.91 Unspecified symptoms and signs involving the musculoskeletal system (principal); M25.512 Pain in left shoulder; E66.9 Obesity, unspecified
CPT/HCPCS: 70450; 71250; 72125; 73030 ×2; 96372; 99284; J1100

== ENCOUNTER 2024-12-13 16:07 | Emergency (ER) | payer SELFPAY ==
--- OUTSIDE RECORDS SUMMARY | 2024-12-13 16:13 | XMS REPORT | Continuity of Care Document ---
Author Name Unknown Address [address] [facility] [address] [place] [address] [facility] [place] Address [address] [facility] [place] [address] Care Team Providers Care Radar Tester Name Role Phone PCP, PATIENT DOES NOT HAVE A Primary Care Physic [place] Unavailable SAKINA WALLER Attending Clinician Unavailable SUSAN DOMINGUEZ Attending Clinician Unavailable LAB90 Attending Clinician Unavailable KARINA COFFMAN Attending Clinician Unavailable Meghna BASILIO MD, John Attending Clinician [phone] Doctor Unassigned, [place] Attending Clinician U Madelin Santiago LVN Attending Clinician [phone] Gurjit Cervantes MD Attending Clinician [phone] Marshall Schmidt MD Attending Clinician [phone] Bill Alcantara MD Attending Clinician [phone] MARSHALL SCHMIDT Admitting Clinician Marshall Mac MD Admitting Clinician [phone] Payers Payer Name Policy Type Policy Number Effective Date Expirati on Date Source [facility] JANICE ALVARADO COPAY FOCUS 9 [id number] 2024 00:00:00 Problems Condition Name Condition Details Condition Category Status Onset Date Resolution Date Last Treatment Date Treating Clinician Comments Source Well adult exam Well adult exam Disease Active 2023-08 00:00: 00 Henna Seybold - Externa l Obesity (BMI 30-39.9) Obesity (BMI 30-39.9) Disease Active 12-05 00:00: 00 [facility] Trauma Trauma Disease Active 12-04 00:00: 00 [facility] Closed fracture of posterior lip of right acetabulum without additional fracture Closed fracture of posterior lip of right acetabulum without additional fracture Disease Active 12-04 00:00: 00 Overview: Formattin g of this note might be different from the original. Added automatic ally from request for surgery [id number] [facility] SVT (supravent ricular tachycardi a) (CMS-HCC) (multi HCC) SVT (supravent ricular tachycardi a) ([facility]-HCC) (multi HCC) Disease Active Henna Seybold - Externa l History of cardiac radiofrequ ency ablation History of cardiac radiofrequ ency ablation Disease Active Henna Seybold - Externa l Cardiac arrhythmia Cardiac arrhythmia Disease Active Henna Seybold - Externa l History of hip surgery History of hip surgery Disease Active Henna Seybold - Externa l Family history of coronary artery disease in father Family history of coronary artery disease in father Disease Active Henna Seybold - Externa l Family history of diabetes mellitus (DM) Family history of diabetes mellitus (DM) Disease Active Henna Seybold - Externa l Severe obesity Severe obesity Disease Active Henna Seybold - Externa l Allergies, Adverse Reactions, Alerts Allergy Name Allergy Type Status Severity Reaction(s) Onset Date Inactive Date Treating Clinician Comments Source NO KNOWN ALLERGIE S Drug Class Active [facility] Social History Social Habit Start Date Stop Date Quantity Comments Source History SDOH Alcohol Std Drinks [facility] History SDOH Alcohol Binge [facility] History SDOH Social Connections Get Together [facility] History SDOH Social Connections Taoism [facility] History SDOH Social Connections Membership [facility] History SDOH Social Connections Meetings [facility] History SDOH Physical Activity DPW [facility] History SDOH Housing Places Lived [facility] Sexual orientation K ernestina Adamesold - External History of tobacco use Cigarette Smoker Henna victor - External Education 2024-06-29 00:00:00 2024-06-29 00:00:00 8 Henna Sharma - External Cigarettes smoked current (pack per day) - Reported 2024-06-29 00:00:00 2024-06-29 00:00:00 Henna Sharma - External Cigarette pack-years 2024-06-29 00:00:00 2024-06-29 00:00:00 Henna Sharma - External Tobacco use and exposure 2024-06-29 00:00:00 2024-06-29 00:00:00 Smokeless tobacco non-user Henna Sharma - External Alcoholic beverage intake 2024-06-29 00:00:00 2024-06-29 00:00:00 Ex-drinker (finding) Henna Sharma - External History of Social function 2024-06-29 00:00:00 2024-06-29 00:00:00 Henna Sharma - External Sex 2024-04-27 09:07:05 2024-04-27 09:07:05 Male (finding) Henna Sharma - External Exposure to SARS-CoV-2 (event) 2022-12-16 00:00:00 2022-12-26 10:21:00 Not sure [facility] History SDOH Alcohol Frequency 2022-12-04 00:00:00 2022-12-04 00:00:00 1 [facility] History SDOH Social Connections Phone 2022-12-04 00:00:00 2022-12-04 00:00:00 3 [facility] History SDOH Social Connections Living 2022-12-04 00:00:00 2022-12-04 00:00:00 98 [facility] History SDOH Physical Activity MPS 2022-12-04 00:00:00 2022-12-04 00:00:00 0 [facility] History SDOH Financial 2022-12-04 00:00:00 2022-12-04 00:00:00 5 [facility] History SDOH Food Worry 2022-12-04 00:00:00 2022-12-04 00:00:00 1 [facility] History SDOH Food Scarcity 2022-12-04 00:00:00 2022-12-04 00:00:00 1 [facility] History SDOH Transport Med 2022-12-04 00:00:00 2022-12-04 00:00:00 2 [facility] History SDOH Transport Non-Med 2022-12-04 00:00:00 2022-12-04 00:00:00 2 [facility] History SDOH Housing Unable to Pay 2022-12-04 00:00:00 2022-12-04 00:00:00 2 [facility] History SDOH Housing Homeless Last Year 2022-12-04 00:00:00 2022-12-04 00:00:00 2 [facility] Sex assigned at 1990 00:00:00 1990 00:00:00 [...] Tachycardi a Henna Sharma - Externa l enoxaparin 30 mg/0.3 mL injection 12-09 00:00: 00 01-07 04:59 :00 No [id number] 30mg inject 0.3 mL under the skin every 12 (twelve) hours for 28 days. [facility] docusate 100 mg capsule 12-09 00:00: 00 12-26 04:59 :00 No [id number] 100mg Take 1 capsule by mouth in the morning and 1 capsule in the evening. Do all this for 15 days. [facility] methocarbam oL 750 mg tablet 12-09 00:00: 00 12-25 04:59 :00 No [id number] 750mg Take 1 tablet by mouth 3 (three) times daily as needed for Pain (scale 4-6) for up to 14 days. [facility] traMADoL 50 mg tablet 12-09 00:00: 00 12-18 04:59 :00 No [id number] 50mg Take 1 tablet by mouth every 6 (six) hours as needed for Pain (scale 4-6) or Pain (scale 7-10) for up to 7 days. Indication s: acute pain [facility] ondansetron (ZOFRAN) 4 mg tablet 12-09 00:00: 00 12-16 04:59 :00 No [id number] 4mg Take 1 tablet by mouth every 12 (twelve) hours as needed for Nausea and Vomiting (N/V) for up to 5 days. [facility] HYDROcodone -acetaminop hen 5-325 mg tablet 12-09 00:00: 00 12-16 04:59 :00 No [id number] 1{tbl} Take 1 tablet by mouth every 6 (six) hours as needed for Pain (scale 7-10) for up to 5 days. Indication s: acute pain [facility] gabapentin (NEURONTIN) capsule 300 mg 12-08 04:45: 00 Yes 300mg 300 mg, Oral, TID, First dose (after last modificati on) on 12/07/22 at 2345, Until Discontinu ed, Routine [facility] HYDROcodone -acetaminop hen (NORCO 5) 5-325 mg tablet 1 tablet 12-08 04:45: 00 Yes 1{tbl} 1 tablet, Oral, Q4HPRN, Starting on 12/07/22 at 2345, Until Discontinu ed, Routine, Pain (scale 4-6) [facility] ondansetron (ZOFRAN) tablet 4 mg 12-07 01:59: 00 Yes 4mg 4 mg, Oral, Q8HPRN, Starting on Fri12/06/22 at 2059, Until Discontinu ed, Routine, Nausea and Vomiting (N/V) [facility] ondansetron (ZOFRAN (PF)) injection 4 mg 12-06 21:15: 00 12-06 20:35 :00 No 4mg 4 mg, Slow IV Push, ONCE, On Fri12/06/22 at 1615, For 1 dose
Do ses of ondansetro n 16 mg and above need to be administer ed via IV piggyback. For Dose >=24mg ECG monitoring is advisable.
[facility] ceFAZolin (ANCEF) 1,000 mg in NaCl 0.9% (NS) 100 mL MINI-BAG 12-06 20:00: 00 12-07 14:13 :00 No 1000mg 1,000 mg, IV Piggyback, Q8H ABX, 3 doses, First dose on Fri12/06/22 at 1500, Last dose on Fri12/07/22 at 0700, Administer over 30 Minutes, 100 mL
Reas on for Anti-Infec tive: Surgical Prophylaxi s
Surgi nneka Prophylaxi s: Orthopaedi c
Durat ion of therapy: within 24 hours of surgery [facility] povidone-io dine (BETADINE) 10 % solution 12-06 16:56: 00 12-06 18:58 :39 No PRN, Starting on Fri12/06/22 at 1156, Until Fri12/06/22 at 1358, Routine, Intra-op [facility] foLIC acid (FOLATE) tablet 1 mg 12-05 14:00: 00 Yes 1mg 1 mg, Oral, DAILY, First dose on Fri12/05/22 at 0900, Until Discontinu ed, Routine [facility] thiamine (VITAMIN B1) tablet 100 mg 12-05 14:00: 00 Yes 100mg 100 mg, Oral, DAILY, First dose on Fri12/05/22 at 0900, Until Discontinu ed, Routine [facility] oxazepam (SERAX) capsule 15 mg 12-04 18:36: 08 Yes 15mg 15 mg, Oral, Q4HPRN, Starting on Fri12/04/22 at 1336, Until Discontinu ed, Routine, Only while awake for DBP equal to or greater than 100, HR equal to or greater than 100. [facility] docusate (COLACE) capsule 100 mg 12-04 14:00: 00 Yes 100mg 100 mg, Oral, DAILY, First dose on Fri12/04/22 at 0900, Until Discontinu ed, Routine [facility] methocarbam oL (ROBAXIN) tablet 500 mg 12-04 13:00: 00 Yes 500mg 500 mg, Oral, QID, First dose on Fri12/04/22 at 0800, Until Discontinu ed, Routine [facility] enoxaparin (LOVENOX) injection 30 mg 12-04 13:00: 00 Yes 30mg 30 mg, Subcutaneo us, Q12H, First dose on Fri12/04/22 at 0800, Until Discontinu ed, Routine [facility] ketamine (KETALAR) injection 100 mg 12-04 11:45: 00 12-04 09:48 :00 No 100mg 100 mg, Slow IV Push, ONCE, 1 dose, On Fri12/04/22 at 0645, Routine [facility] morpHINE (2 mg/mL) injection 4 mg 12-04 11:40: 56 Yes 4mg 4 mg, Slow IV Push, Q3HPRN, Starting on Fri12/04/22 at 0640, Until Discontinu ed, Routine, Pain (scale 7-10) [facility] HYDROcodone -acetaminop hen (NORCO 5) 5-325 mg tablet 1 tablet 12-04 11:38: 48 12-08 04:33 :17 No 1{tbl} 1 tablet, Oral, Q6HPRN, Starting on Fri12/04/22 at 0638, Until 12/07/22 at 2333, Routine, Pain (scale 4-6) [facility] acetaminoph en (TYLENOL) tablet 650 mg 12-04 11:38: 23 Yes 650mg 650 mg, Oral, Q6HPRN, Starting on Fri12/04/22 at 0638, Until Discontinu ed, Routine, Pain (scale 1-3) [facility] propofoL IV infusion 200 mg 12-04 11:30: 00 12-04 09:53 :00 No 200mg 200 mg, Slow IV Push, ONCE, On Fri12/04/22 at 0630, For 1 dose [facility] Vital Signs Vital Name Observation Time Observation Value Comments S ource Systolic blood pressure 2024-06-29 15:33:00 110 mm[Hg] [place] Adameso ld - External Diastolic blood pressure 2024-06-29 15:33:00 70 mm[Hg] Henna Zacariaso ld - External Heart rate 2024-06-29 15:33:00 80 /min Cristal mayer daysivalente - External Body temperature 2024-06-29 15:33:00 36.61 Sandrine Henna Sedaysiold - External Respiratory rate 2024-06-29 15:33:00 16 /min Henna ybold - External Body height 2024-06-29 15:33:00 175.3 cm Ashley kassie Abebeybold - External Body weight 2024-06-29 15:33:00 118.842 kg Ashley kassie Abebeybold - External BMI 2024-06-29 15:33:00 38.69 kg/m2 Ashley kassie Abebeybold - External Oxygen saturation in Arterial blood by Pulse oximetry 2024-06-29 15:33:00 100 /min [place] Adamesorly ld - External Body temperature 2022-12-26 16:53:00 35.83 Sandrine [facility] Body height 2022-12-26 16:53:00 175.3 cm [facility] Body weight 2022-12-26 16:53:00 94.756 kg [facility] BMI 2022-12-26 16:53:00 30.85 kg/m2 [facility] Systolic blood pressure 2022-12-10 15:46:00 100 mm[Hg] [facility] Diastolic blood pressure 2022-12-10 15:46:00 49 mm[Hg] [facility] Heart rate 2022-12-10 15:46:00 57 /min Unive [facility] Body temperature 2022-12-10 15:46:00 36.72 Sandrine [facility] Respiratory rate 2022-12-10 15:46:00 18 /min [facility] Oxygen saturation in Arterial blood by Pulse oximetry 2022-12-10 15:46:00 97 /min [facility] Body height 2022-12-04 07:17:00 172.7 cm [facility] Body weight 2022-12-04 07:17:00 104.327 kg [facility] BMI 2022-12-04 07:17:00 34.97 kg/m2 [facility] Systolic blood pressure 2022-12-06 08:23:00 122 mm[Hg] [facility] Diastolic blood pressure 2022-12-06 08:23:00 70 mm[Hg] [facility] Heart rate 2022-12-06 08:23:00 84 /min Unive [facility] Body temperature 2022-12-06 08:23:00 36.39 Sandrine [facility] Respiratory rate 2022-12-06 08:23:00 18 /min [facility] Oxygen saturation in Arterial blood by Pulse oximetry 2022-12-06 08:23:00 95 /min [facility] Body height 2022-12-04 07:17:00 172.7 cm [facility] Body weight 2022-12-04 07:17:00 104.327 kg [facility] BMI 2022-12-04 07:17:00 34.97 kg/m2 [facility] Procedures Procedure Date / Time Performed Performing Clinician Source XR FEMUR 2 VW RIGHT 2022-12-26 16:20:15 Karina Coffman [facility] ASSIGNMENT OF BENEFITS 2022-12-26 15:22:34 Docto r Unassigned, [place] [facility] STATEMENT OF PATIENT FINANCIAL RESPONSIBILITY 2022-12-26 05:01:00 Doctor Unassigned, [place] [facility] POCT GLUCOSE (AUTOMATED) 2022-12-09 13:25:00 Meghna, [facility] POCT GLUCOSE (AUTOMATED) 2022-12-09 13:25:00 Karina Coffman [facility] CT PELVIS WO CONTRAST 2022-12-07 01:31:06 Sandra Coffman [facility] CT PELVIS WO CONTRAST 2022-12-07 01:31:06 Sandra Coffman [facility] VBG+VCOOX+NA+K+GLU+CA2+ 2022-12-06 17:03:00 Meghna [facility] FL TIME OR (NON-REPORTABLE) 2022-12-06 16:40:52 Meghna [facility] FL TIME OR (NON-REPORTABLE) 2022-12-06 16:40:52 Meghna [facility] VBG+VCOOX+NA+K+GLU+CA2+ 2022-12-06 15:14:00 Meghna [facility] VBG+VCOOX+NA+K+GLU+CA2+ 2022-12-06 14:07:00 Karina Coffman [facility] VBG+VCOOX+NA+K+GLU+CA2+ 2022-12-06 13:19:00 Karina Coffman [facility] ACETABULUM ORIF 2022-12-06 12:00:00 Karina Coffman [facility] FEMUR HARDWARE REMOVAL 2022-12-06 12:00:00 Layne Coffman [facility] ACETABULUM ORIF 2022-12-06 12:00:00 Karina Coffman [facility] FEMUR HARDWARE REMOVAL 2022-12-06 12:00:00 Layne Coffman [facility] CT PELVIS WO CONTRAST 2022-12-04 11:02:08 Benji Lim [facility] CT PELVIS WO CONTRAST 2022-12-04 11:02:08 Benji Lim [facility] XR KNEE <3 VW RIGHT 2022-12-04 10:19:00 Veronica Lim [facility] XR KNEE <3 VW RIGHT 2022-12-04 10:19:00 Veronica Lim [facility] MODERATE SEDATION 2022-12-04 09:34:52 Garrett Knutson [facility] MODERATE SEDATION 2022-12-04 09:34:52 Garrett Knutson [facility] XR FEMUR 2 VW RIGHT 2022-12-04 09:18:[facility] H[facility] 2 VW RIGHT 2022-12-04 09:18:16 Raphael [facility] XR KNEE <3 VW RIGHT 2022-12-04 09:18:16 Black, [facility] XR PELVIS 3+ VW 2022-12-04 09:18:[facility] VW RIGHT 2022-12-04 09:18:16 Raphael, [facility] XR HIPS 2 VW RIGHT 2022-12-04 09:18:16 Raphael [facility] XR KNEE <3 VW RIGHT 2022-12-04 09:18:16 Raphael [facility] XR PELVIS 3+ VW 2022-12-04 09:18:16 Veronica Lim [facility] ABORH CONFIRMATION (LAB ONLY) 2022-12-04 08:11:00 Billy [facility] ABORH CONFIRMATION (LAB ONLY) 2022-12-04 08:11:[address] [facility] [address] CERVICAL SPINE WO CONTRAST 2022-12-04 08:02:04 [facility] CT CERVICAL SPINE WO CONTRAST 2022-12-04 08:02:04 [facility] CT LUMBAR SPINE WO CONTRAST 2022-12-04 07:54:[facility] 2022-12-04 07:54:51 [facility] CT LUMBAR SPINE WO CONTRAST 2022-12-04 07:54:51 [facility] CT THORACIC SPINE WO CONTRAST 2022-12-04 07:54:51 [facility] CT THORAX WO CONTRAST 2022-12-04 07:47:34 [facility] CT THORAX WO CONTRAST 2022-12-04 07:47:34 [facility] CT HEAD WO CONTRAST 2022-12-04 07:47:26 Yazmin Gandhi [facility] CT HEAD WO CONTRAST 2022-12-04 07:47:26 Yazmin Gandhi [facility] BASIC METABOLIC PANEL (NA, K, CL, CO2, GLUCOSE, BUN, CREATININE, CA) 2022-12-04 07:27:00 Billy [facility] CBC WITHOUT DIFF 2022-12-04 07:27:00 Billy [facility] PROTHROMBIN TIME / INR 2022-12-04 07:27:00 Олег Cervantes [facility] ACTIVATED PARTIAL THRMPLAS LATANYA 2022-12-04 07:27:00 Billy [facility] HB ABO GROUPING 2022-12-04 07:27[facility] (NA, K, CL, CO2, GLUCOSE, BUN, CREATININE, CA) 2022-12-04 07:27:00 Billy [facility] CBC WITHOUT DIFF 2022-12-04 07:27:00 Billy [facility] PROTHROMBIN TIME / INR 2022-12-04 07:27:00 Олег Cervantes [facility] ACTIVATED PARTIAL THRMPLAS LATANYA 2022-12-04 07:27:00 Billy [facility] HB ABO GROUPING 2022-12-04 07:27:00 Gurjit Cervantes [facility] HOSPITAL ADMISSION 2022-12-04 05:01:00 Doctor Un assigned, [place] [facility] HOSPITAL ADMISSION 2022-12-04 05:01:00 Doctor Un assigned, [place] [facility] Encounters Start Date/Time End Date/Time Encounter Type Admission Type Attending [facility] Care Department Encounter ID Source 2024-12-03 16:00:00 2024-12-03 16:00:00 Outpatient SAKINA WALLER [id number] Henna Sharma 2024-08-31 14:00:00 2024-08-31 14:00:00 Outpatient SUSAN DOMINGUEZ [id number] Henna Sharma 2024-07-01 00:00:00 2024-07-01 00:00:00 Outpatient SUSAN DOMINGUEZ [id number] Henna Sharma 2024-06-29 10:50:00 2024-06-29 10:50:00 Outpatient LAB90 HENNA SEAY [id number] Henna Sharma 2024-06-29 09:30:00 2024-06-29 09:30:00 Outpatient SUSAN DOMINGUEZ [id number] [facility] 2024-02-24 15:30:41 2024-02-24 15:30:41 Outpatient SFA SFA [id number] Imer Moreno 2023-02-06 09:40:00 2023-02-06 09:40:00 Outpatient Alexander [facility]GH[facility]KARINA [facility] [id number] [facility] 2022-12-26 10:36:51 2022-12-26 23:59:00 Hospital Encounter MeghnaKarina [facility] [place] [id number] [id number] [id number] [facility] 2022-12-26 09:40:00 2022-12-26 12:33:53 Outpatient R MEGHNAKARINA [facility] [id number] [facility] 2022-12-26 09:40:00 2022-12-26 12:33:53 Office Visit MeghnaKarina [facility] [place] [id number] [id number] [id number] [id number] [facility] 2022-12-26 00:00:00 2022-12-26 00:00:00 Orders Only Doctor Unassigned, [place] [facility] [id number] [id number] [id number] [id number] [facility] 2022-12-11 00:00:00 2022-12-11 00:00:00 Transition of Care Madelin Gutierrez [id number] [id number] [id number] [id number] [facility] 2022-12-04 02:18:00 2022-12-10 18:11:00 Inpatient T KARINA COFFMAN [facility] STR [id number] [facility] 2022-12-04 02:18:00 2022-12-10 18:11:00 Hospital Encounter Gurjit Cervantes, Marshall Alcantara, Bill Ray [facility] [id number] [id number] 4.2.7.2.686 [id number] [facility] 2022-12-06 07:00:00 2022-12-06 12:10:00 Surgery [facility] [id number] [id number] [id number] [id number] [facility] Results Test Description Test Time Test Comments Results Result Co mments Source [facility]GLU[facility]CA2+2022-12-10 02:40:45* Test Item Value Reference Range Interpretation Comme nts PH (test code = 6694935715) 7.38 7.32-7.42 PCO2 HMUZA (test code = 7073490282) 40 See_Comment L [Automated messa ge] The system which generated this result transmitted reference range: 41 - 51 mmHg. The reference range was not used to interpret this result as normal/abnormal. PO2 HUMZA (test code = 7186545126) 82 See_Comment HH [Automated messa ge] The system which generated this result transmitted reference range: 25 - 40 mmHg. The reference range was not used to interpret this result as normal/abnormal. HCO3 HUMZA (test code = 6978252172) 24 See_Comment [Automated messa ge] The system which generated this result transmitted reference range: 24 - 28 mEq/L. The reference range was not used to interpret this result as normal/abnormal. AC VBE(BEAKER) (test code = 4289633136) -1.4 mEq/L THB HUMZA (test code = 1514765474) 14.7 g/dL 13.5-18.0 %O2HB HUMZA (test code = 7653300315) 94.4 % 52.0-63.0 H %COHB HUMZA (test code = 8981300643) 1.8 % 0.0-1.5 H %METHB HUMZA (test code = 3036681814) 0.2 % 0.4-1.5 L VOL%O2 HUMZA (test code = 1318424830) 19.5 % 6.0-12.0 H QUES NA (test code = 3459831393) 150 mmol/L 135-145 H K+ (test code = 1891529088) 3.9 mmol/L 3.5-5.0 AC CA IONZ (test code = 3766436569) 4.70 mg/dL 4.50-5.30 GLUCOSE (test code = 0202394787) 92 mg/dL 70-110 Lab Interpretation (test code = 58209-4) Abnormal [facility]+K+GLU+CA2+2022-12-10 02:39:14* Test Item Value Reference Range Interpretation Comme nts PH (test code = 7946733766) 7.31 7.32-7.42 L PCO2 HUMZA (test code = 0691165042) 48 See_Comment [Automated messa ge] The system which generated this result transmitted reference range: 41 - 51 mmHg. The reference range was not used to interpret this result as normal/abnormal. PO2 HUMZA (test code = 5895027809) 56 See_Comment HH [Automated messa ge] The system which generated this result transmitted reference range: 25 - 40 mmHg. The reference range was not used to interpret this result as normal/abnormal. HCO3 HUMZA (test code = 5785461955) 24 See_Comment [Automated messa ge] The system which generated this result transmitted reference range: 24 - 28 mEq/L. The reference range was not used to interpret this result as normal/abnormal. AC VBE(BEAKER) (test code = 4017070049) -2.7 mEq/L THB HUMZA (test code = 7821002567) 13.3 g/dL 13.5-18.0 L %O2HB HUMZA (test code = 4123368400) 87.4 % 52.0-63.0 H %COHB HUMZA (test code = 1522341670) 1.1 % 0.0-1.5 %METHB HUMZA (test code = 2048435884) 0.3 % 0.4-1.5 L VOL%O2 HUMZA (test code = 0844771470) 16.3 % 6.0-12.0 H QUES NA (test code = 4887828059) 138 mmol/L 135-145 K+ (test code = 6186888773) 4.2 mmol/L 3.5-5.0 AC CA IONZ (test code = 2002764025) 4.60 mg/dL 4.50-5.30 GLUCOSE (test code = 0325467941) 196 mg/dL 70-110 H Lab Interpretation (test code = 72280-5) [facility]normal [facility]+K+GLU+CA2+2022-12-10 02:38:38* Test Item Value Reference Range Interpretation Comme nts PH (test code = 6941128789) 7.32 7.32-7.42 PCO2 HUMZA (test code = 7971431234) 46 See_Comment [Automated messa ge] The system which generated this result transmitted reference range: 41 - 51 mmHg. The reference range was not used to interpret this result as normal/abnormal. PO2 HUMZA (test code = 2843819025) 143 See_Comment HH [Automated messa ge] The system which generated this result transmitted reference range: 25 - 40 mmHg. The reference range was not used to interpret this result as normal/abnormal. HCO3 HUMZA (test code = 7690899678) 23 See_Comment L [Automated messa ge] The system which generated this result transmitted reference range: 24 - 28 mEq/L. The reference range was not used to interpret this result as normal/abnormal. AC VBE(BEAKER) (test code = 4436026932) -3.1 mEq/L THB HUMZA (test code = 1382361261) 12.4 g/dL 13.5-18.0 L %O2HB HUMZA (test code = 9376749714) 97.5 % 52.0-63.0 H %COHB HUMZA (test code = 3773105922) 1.1 % 0.0-1.5 %METHB HUMZA (test code = 4006197863) 0.3 % 0.4-1.5 L VOL%O2 HUMZA (test code = 4317520588) 17.3 % 6.0-12.0 H QUES NA (test code = 9761218959) 133 mmol/L 135-145 L K+ (test code = 2661970887) 4.4 mmol/L 3.5-5.0 AC CA IONZ (test code = 8988892708) 4.50 mg/dL 4.50-5.30 GLUCOSE (test code = 8255695775) 141 mg/dL 70-110 H Lab Interpretation (test code = 61867-5) Abnormal [facility] GLUCOSE (AUTOMATED)2022-12-09 13:25:50* Test Item Value Reference Range Interpretation Comme nts POCT GLU (test code = 1687203049) 107 mg/dL 70-110 Lab Interpretation (test cod e = 12504-7) Normal [facility] GLUCOSE (AUTOMATED)2022-12-09 13:25:50* Test Item Value Reference Range Interpretation Comme nts POCT GLU (test code = 0259178042) 107 mg/dL 70-110 Lab Interpretation (test cod e = 57530-1) Normal [facility] Confirmation (Lab Only)2022-12-04 08:14:00* Test Item Value Reference Range Interpretation Comme nts ABO & RH (test code = 20) O Positive [facility] Confirmation (Lab Only)2022-12-04 08:14:00* Test Item Value Reference Range Interpretation Comme nts ABO & RH (test code = 20) O Positive [facility] Metabolic Panel (NA, K, CL, CO2, GLUCOSE, BUN, CREATININE, CA)2022-12-04 07:47:57* Test Item Value Reference Range Interpretation Comme nts NA (test code = 4928357334) 141 mmol/L 135-145 K (test code = 4753653985) 4.4 mmol/L 3.5-5.0 Slight hemolysis CL (test code = 8802165103) 106 mmol/L 98-108 CO2 TOTAL (test code = 0626613548) 23 mmol/L 23-31 AGAP (test code = 9743273649) 12 2-16 BUN (test code = 8417568817) 7 mg/dL 7-23 Slight hemolysis GLUCOSE (test code = 8274937333) 95 mg/dL 70-110 CREATININE (test code = 8004466442) 0.63 mg/dL 0.60-1.25 CALCIUM (test code = 2678017913) 8.4 mg/dL 8.6-10.6 L eGFR (test code = 3071731930) 148.5 mL/min/1.73m2 NADIA (test code = NADIA) Association of Glomerular Filtration Rate (GFR) and Staging of Kidney Disease* + -----+ --------+ +| GFR (mL/min/1.73 m2) ?| With Kidney Damage ?| ?Without Kidney Damage+ +------- +---- --+| ?>90 ?| ?Stage one ?| ? Normal ?+ ------+ ---------+--------- +| ?60-89 ?| ?Stage two ?| ? Decreased GFR ? + -----+ --------+ +| ?30-59 ?| ?Stage three ?| ? Stage three ? + -----+ --------+ +| ?15-29 ?| ?Stage four ? | ? Stage four ?+ ------+ ---------+--------- +| ?<15 (or dialysis) ? ?| ?Stage five ? | ? Stage five ?+ ------+ ---------+--------- + *Each stage assumes the associated GFR level has been in effect for at least three months. ?Stages 1 to 5, with or without kidney disease, indicate chronic kidney disease. Notes: Determination of stages one and two (with eGFR >59mL/min/1.73 m2) requires estimation of kidney damage for at least three months as defined by structural or functional abnormalities of the kidney, manifested by either:Pathological abnormalities or Markers of kidney damage (including abnormalities in the composition of the blood or urine or abnormalities in imaging tests). Lab Interpretation (test code = 95284-0) Abnormal [facility] Metabolic Panel (NA, K, CL, CO2, GLUCOSE, BUN, CREATININE, CA)2022-12-04 07:47:57* Test Item Value Reference Range Interpretation Comme nts NA (test code = 1219966003) 141 mmol/L 135-145 K (test code = 8595877361) 4.4 mmol/L 3.5-5.0 Slight hemolysis CL (test code = 1930177492) 106 mmol/L 98-108 CO2 TOTAL (test code = 2344677521) 23 mmol/L 23-31 AGAP (test code = 6819414250) 12 2-16 BUN (test code = 8946972402) 7 mg/dL 7-23 Slight hemolysis GLUCOSE (test code = 5458376439) 95 mg/dL 70-110 CREATININE (test code = 5090168764) 0.63 mg/dL 0.60-1.25 CALCIUM (test code = 2080321685) 8.4 mg/dL 8.6-10.6 L eGFR (test code = 2031833896) 148.5 mL/min/1.73m2 NADIA (test code = NADIA) Association of Glomerular Filtration Rate (GFR) and Staging of Kidney Disease* + -----+ --------+ +| GFR (mL/min/1.73 m2) ?| With Kidney Damage ?| ?Without Kidney Damage+ +------- +---- --+| ?>90 ?| ?Stage one ?| ? Normal ?+ ------+ ---------+--------- +| ?60-89 ?| ?Stage two ?| ? Decreased GFR ? + -----+ --------+ +| ?30-59 ?| ?Stage three ?| ? Stage three ? + -----+ --------+ +| ?15-29 ?| ?Stage four ? | ? Stage four ?+ ------+ ---------+--------- +| ?<15 (or dialysis) ? ?| ?Stage five ? | ? Stage five ?+ ------+ ---------+--------- + *Each stage assumes the associated GFR level has been in effect for at least three months. ?Stages 1 to 5, with or without kidney disease, indicate chronic kidney disease. Notes: Determination of stages one and two (with eGFR >59mL/min/1.73 m2) requires estimation of kidney damage for at least three months as defined by structural or functional abnormalities of the kidney, manifested by either:Pathological abnormalities or Markers of kidney damage (including abnormalities in the composition of the blood or urine or abnormalities in imaging tests). Lab Interpretation (test code = 15993-7) [facility] / [id number] 07:45:56* Test Item Value Reference Range Interpretation Comme nts PROTIME PATIENT (test code = 5964-2) 12.3 See_Comment [Automated messa ge] The system which generated this result transmitted reference range: 10.1 - 12.6 Seconds. The reference range was not used to interpret this result as normal/abnormal. INR (test code = 6301-6) 1.1 Normal INR <1.1; Warfarin Therapeutic range 2.0 to 3.0 or 2.5 to 3.5, depending upon the indications. Lab Interpretation (test code = 09644-3) [facility] 07:45:56* Test Item Value Reference Range Interpretation Comme [facility] APTT Patient (test code = 3173-2) 29 See_Comment [Automated messa [place] [employer]] The system which generated this result transmitted reference range: 26 - 36 Seconds. The reference range was not used to interpret this result as normal/abnormal. Lab Interpretation (test code = 48536-8) Normal [facility] / [id number] 07:45:56* Test Item Value Reference Range Interpretation Comme nts PROTIME PATIENT (test code = 5964-2) 12.3 See_Comment [Automated messa ge] The system which generated this result transmitted reference range: 10.1 - 12.6 Seconds. The reference range was not used to interpret this result as normal/abnormal. INR (test code = 6301-6) 1.1 Normal INR <1.1; Warfarin Therapeutic range 2.0 to 3.0 or 2.5 to 3.5, depending upon the indications. Lab Interpretation (test code = 78029-9) [facility] 07:45:56* Test Item Value Reference Range Interpretation Comme nts APTT Patient (test code = 3173-2) 29 See_Comment [Automated messa ge] The system which generated this result transmitted reference range: 26 - 36 Seconds. The reference range was not used to interpret this result as normal/abnormal. Lab Interpretation (test code = 92012-5) [facility] / [id number] 07:39:53* Test Item Value Reference Range Interpretation Comme nts WBC (test code = 6690-2) 10.86 See_Comment H [Automated message] The system which generated this result transmitted reference range: 4.20 - 10.70 10*3/?L. The reference range was not used to interpret this result as normal/abnormal. RBC (test code = 789-8) 4.77 See_Comment [Automated message] The system which generated this result transmitted reference range: 4.26 - 5.52 10*6/?L. The reference range was not used to interpret this result as normal/abnormal. HGB (test code = 718-7) 14.7 g/dL 12.2-16.4 HCT (test code = 4544-3) 42.0 % 38.4-49.3 MCH (test code = 785-6) 30.8 pg 26.1-32.7 MCV (test code = 787-2) 88.1 fL 81.7-95.6 MCHC (test code = 786-4) 35.0 g/dL 31.2-35.0 PLT (test code = 777-3) 155 See_Comment [Automated message] The system which generated this result transmitted reference range: 150 - 328 10*3/?L. The reference range was not used to interpret this result as normal/abnormal. MPV (test code = 70056-6) 9.4 fL 9.8-13.0 L RDW-CV (test code = 788-0) 14.4 % 12.1-15.4 RDW-SD (test code = 65574-8) 46.4 fL 38.5-51.6 NRBC x10^3 (test code = 3458593615) See_Comment [Automated messa ge] The system which generated this result transmitted reference range: 10*3/?L. The reference range was not used to interpret this result as normal/abnormal. NRBC/100 WBC (test code = 4439068073) 0.0 See_Comment [Automated messa ge] The system which generated this result transmitted reference range: 0.0 - 10.0 /100 WBCs. The reference range was not used to interpret this result as normal/abnormal. IPF % (test code = 0285475520) Lab Interpretation (test code = 83141-7) [facility] [id number] 07:39:53* Test Item Value Reference Range Interpretation Comme nts WBC (test code = 6690-2) 10.86 See_Comment H [Automated message] The system which generated this result transmitted reference range: 4.20 - 10.70 10*3/?L. The reference range was not used to interpret this result as normal/abnormal. RBC (test code = 789-8) 4.77 See_Comment [Automated message] The system which generated this result transmitted reference range: 4.26 - 5.52 10*6/?L. The reference range was not used to interpret this result as normal/abnormal. HGB (test code = 718-7) 14.7 g/dL 12.2-16.4 HCT (test code = 4544-3) 42.0 % 38.4-49.3 MCH (test code = 785-6) 30.8 pg 26.1-32.7 MCV (test code = 787-2) 88.1 fL 81.7-95.6 MCHC (test code = 786-4) 35.0 g/dL 31.2-35.0 PLT (test code = 777-3) 155 See_Comment [Automated message] The system which generated this result transmitted reference range: 150 - 328 10*3/?L. The reference range was not used to interpret this result as normal/abnormal. MPV (test code = 94721-2) 9.4 fL 9.8-13.0 L RDW-CV (test code = 788-0) 14.4 % 12.1-15.4 RDW-SD (test code = 47887-5) 46.4 fL 38.5-51.6 NRBC x10^3 (test code = 5097846024) See_Comment [Automated messa ge] The system which generated this result transmitted reference range: 10*3/?L. The reference range was not used to interpret this result as normal/abnormal. NRBC/100 WBC (test code = 2570674622) 0.0 See_Comment [Automated messa ge] The system which generated this result transmitted reference range: 0.0 - 10.0 /100 WBCs. The reference range was not used to interpret this result as normal/abnormal. IPF % (test code = 4553326512) Lab Interpretation (test code = 85343-5) [facility] - The Type and Screen expires at midnight on the 3rd day after it was drawn. A current Type and Screen is required when RBCs are requested. For all other blood products, a Type and Scr een performed during the current hospitalizati...2022-12-04 07:38:00* Test Item Value Reference Range Interpretation Comme nts ABO & RH (test code = 20) O POSITIVE IAT (test code = 1185) Negative [facility] - The Type and Screen expires at midnight on the 3rd day after it was drawn. A current Type and Screen is required when RBCs are requested. For all other blood products, a Type and Scr een performed during the current hospitalizati...2022-12-04 07:38:00* Test Item Value Reference Range Interpretation Comme nts ABO & RH (test code = 20) O POSITIVE IAT (test code = 1185) Negative [facility]"
[2024-12-13] MEDS ORDERED: ONDANSETRON 4 MG/2 ML VIAL ONE (17:08)
[2024-12-13] MEDS ORDERED: KETOROLAC 30 MG/ML INJ ONE (17:08)
[2024-12-13] MEDS ORDERED: NA CHLORIDE 0.9% 1,000 ML ONE (17:09)
[2024-12-13 17:13] LABS: Absolute Basophils 0.1 K/uL (0-0.5); Absolute Eosinophils 0.1 K/uL (0-0.5); Absolute Lymphocytes (CBC) 2.3 K/uL (0.7-4.9); Absolute Monocytes 0.5 K/uL (0.1-1.3); Absolute Neutrophil 7.2 K/uL (1.8-8.0); Basophils % 0.8 % (0-1.3); Eosinophils % 1.3 % (0-4.4); Hematocrit 44.6 % (39.6-49.0); Hemoglobin 15.7 g/dL (13.6-17.9); Lymphocytes % 22.6 % (15.3-44.8); MCH 29.5 pg (27.0-35.0); MCHC 35.1 g/dL (32.0-36.0); MCV 83.9 fL (80-100); MPV 7.8 fL (7.6-11.3); Monocytes % 4.5 % (3.3-12.3); Neutrophils % 70.8 % (41.7-73.7); Platelets 157 thou/uL (152-406); RBC Red Blood Cell Count 5.32 M/uL (4.33-5.43); Red Cell Distribution Width 14.6 % (12.1-15.2)
[2024-12-13 17:32] LABS: Albumin 3.1 g/dL (3.4-5.0); Albumin/Globulin Ratio 0.7 (1.1-1.8); Bilirubin Total 0.7 mg/dL (0.2-1.0); Globulin 4.2 g/dL (2.3-3.5); Protein, Total 7.3 g/dL (6.4-8.2)
[2024-12-13 17:33] LABS: SARS-CoV-2 Antigen Rapid Res Negative (Negative)
--- NOTE | 2024-12-13 18:17 | ER ---
Nurse's Notes [facility] Name: Rusty Read Jr Age: 34 yrs Sex: Male : 1990 Arrival Date: 12/13/2024 Time: 16:07 Bed 18 Private MD: Diagnosis: Viral infection, unspecified Presentation: 12/13 16:27 Chief complaint: Patient states: N/V/D, sore throat, cough, fever x 6 days. Coronavirus ap3 screen: Client presents with at least one sign or symptom that may indicate coronavirus-19. Ebola Screen: No symptoms or risks identified at this time. Initial Sepsis Screen: Does the patient meet any 2 criteria? No. Patient's initial sepsis screen is negative. Does the patient have a suspected source of infection? No. Patient's initial sepsis screen is negative. Risk Assessment: Do you want to hurt yourself or someone else? Patient reports no desire to harm self or others. Onset of symptoms was December 08, 2024. 16:27 Method Of Arrival: Ambulatory ap3 16:27 Acuity: CINDY 3 ap3 Triage Assessment: 16:29 General: Appears in no apparent distress. uncomfortable, Behavior is calm, cooperative, ap3 appropriate for age. Pain: Complains of pain in sore throat. Historical: - Allergies: 16:29 No Known Allergies; ap3 - Home Meds: 16:29 Atenolol Oral [Active]; ap3 - PMHx: 16:29 SVT; ap3 - PSHx: 16:29 Appendectomy; Pelvis Fx; ap3 - Immunization history:: Adult Immunizations unknown. - Infectious Disease History:: Denies. - Social history:: Smoking status: Patient/guardian denies using tobacco, Smoking status: Reported history of juuling and/or vaping. Screenin:00 [facility] ED Fall Risk Assessment (Adult) History of falling in the last 3 months, me1 including since admission No falls in past 3 months (0 pts) Confusion or Disorientation No (0 pts) Intoxicated or Sedated No (0 pts) Impaired Gait No (0 pts) Mobility Assist Device Used No (0 pt) Altered Elimination No (0 pt) Score/Fall Risk Level 0 - 2 = Low Risk Maintained a safe environment, Provided non-skid footwear, Hourly rounding (assess needs \T\ fall precautionary measures) done. Abuse screen: Denies threats or abuse. Nutritional screening: No deficits noted. Tuberculosis screening: No symptoms or risk factors identified. Assessment: 17:00 General: Appears in no apparent distress. well groomed, well developed, well nourished, me1 Behavior is calm, cooperative, appropriate for age, Reports N/V/D, sore throat, cough, fever x 6 days. Pain: Complains of pain in abdomen Pain radiates to left low back and right low back Pain currently is 6 out of 10 on a pain scale. Quality of pain is described as aching, Pain began gradually, Is continuous. Neuro: Level of Consciousness is awake, alert, obeys commands, Oriented to person, place, time, situation, Appropriate for age. Cardiovascular: Patient's skin is warm and dry. Respiratory: Reports cough that is persistent Airway is patent Respiratory effort is even, unlabored, Respiratory pattern is regular, symmetrical. GI: Reports diarrhea, nausea, vomiting, since 6 days ago. : No signs and/or symptoms were reported regarding the genitourinary system. EENT: Reports pain in left buccal mucosa and right buccal mucosa. Derm: Skin is intact, is healthy with good turgor, Skin is pink, warm \T\ dry. Musculoskeletal: No signs and/or symptoms reported regarding the musculoskeletal system. Vital Signs: 16:27 BP 157 / 92; Pulse 90; Resp 17; Temp 97.7; Pulse Ox 99% ; Weight 117.93 kg; Height 5 ap3 ft. 9 in. ; Pain 0/10; 17:00 BP 126 / 72; Pulse 85; Resp 14; Pulse Ox 98% ; me1 18:00 BP 126 / 87; Pulse 73; Resp 16; Pulse Ox 98% ; me1 18:18 BP 128 / 87; Pulse 70; Resp 14; Temp 98.2; Pulse Ox 100% ; me1 16:27 Body Mass Index 38.39 (117.93 kg, 175.26 cm) ap3 16:27 Pain Scale: Adult ap3 ED Course: 16:09 Patient arrived in ED. im 16:13 Jessy Burnett PA-C is PHCP. sb4 16:13 Dexter Freeman MD is Attending Physician. sb4 16:29 Triage completed. ap3 16:29 Arm band placed on right wrist. ap3 16:56 Maritza Little, RN is Primary Nurse. me1 17:00 Patient has correct armband on for positive identification. Bed in low position. Call me1 light in reach. Side rails up X2. Provided Education on: POC. Verbalized understanding.. Client placed on continuous cardiac and pulse oximetry monitoring. NIBP monitoring applied. Pulse ox on. NIBP on. 17:00 No provider procedures requiring assistance completed. me1 17:07 CBC with Diff Sent. me1 17:07 CMP Sent. me1 17:07 Lipase Sent. me1 17:07 Group A Streptococcus Rapid Sent. me1 17:07 SARS RAPID Sent. me1 17:07 Initial lab(s) drawn, by mn, sent to lab. COVID swab sent to lab. Strep swab sent to mn1 lab. Inserted saline lock: 22 gauge in right antecubital area, using aseptic technique. 18:22 IV discontinued, intact, bleeding controlled, No redness/swelling at site. Pressure me1 dressing applied. Administered Medications: 17:12 Drug: Ondansetron IVP 4 mg IVP once; over 2 minutes Route: IVP; Site: right antecubital;me1 17:39 Follow up: Response: No adverse reaction; Nausea is decreased me1 17:12 Drug: NS 0.9% IV 1000 ml IV at 1 bolus Per protocol; to be given as a bolus over 60 me1 minutes Route: IV; Rate: 1 bolus; Site: right antecubital; 18:23 Follow up: Response: No adverse reaction; IV Status: Completed infusion; IV Intake: me1 1000ml 17:13 Drug: TORadol - Ketorolac IVP 15 mg IVP once Route: IVP; Site: right antecubital; me1 17:39 Follow up: Response: No adverse reaction; Pain is decreased me1 Medication: 17:00 VIS not applicable for this client. me1 Intake: 18:23 IV: 1000ml; Total: 1000ml. me1 Outcome: 18:16 Discharge ordered by . sb4 18:22 Discharged to home ambulatory, me1 18:22 Condition: stable 18:22 Discharge instructions given to patient, Instructed on discharge instructions, follow up and referral plans. medication usage, Demonstrated understanding of instructions, follow-up care, medications, Prescriptions given X 1, 18:23 Patient left the ED. me1 Signatures: Zuly Metz RN RN ap3 Jessy Burnett PA-C PALadi sb4 Anya Green Michelle, RN RN me1 Corrections: (The following items were deleted from the chart) 17:42 16:27 Chief complaint: Patient states: N/V/D, sore throat, cough, fever x 6 days ap3 me1
--- NOTE | 2024-12-13 18:17 | EDPHYS ---
Physician Documentation [facility] Name: Rusty Read Jr Age: 34 yrs Sex: Male : 1990 Arrival Date: 12/13/2024 Time: 16:07 Bed 18 Private MD: ED Physician Dexter Freeman HPI: 12/13 17:56 This 34 yrs old Male presents to ER via Ambulatory with complaints of Flu sb4 Symptoms. 18:34 Patient reports sore throat, nausea, vomiting, diarrhea intermittently for the past 6 sb4 days. Thought he was getting better than it came back. States he cannot hold down water. Is in no acute distress during triage. States his mom has been sick with similar symptoms. Historical: - Allergies: 16:29 No Known Allergies; ap3 - Home Meds: 16:29 Atenolol Oral [Active]; ap3 - PMHx: 16:29 SVT; ap3 - PSHx: 16:29 Appendectomy; Pelvis Fx; ap3 - Immunization history:: Adult Immunizations unknown. - Infectious Disease History:: Denies. - Social history:: Smoking status: Patient/guardian denies using tobacco, Smoking status: Reported history of juuling and/or vaping. ROS: 18:34 Cardiovascular: Negative for chest pain, palpitations, and edema, sb4 18:34 Constitutional: Positive for fever, 18:34 ENT: Positive for sore throat, 18:34 Respiratory: Positive for cough, 18:34 Abdomen/GI: Positive for nausea, vomiting, and diarrhea, 18:34 All other systems are negative, Exam: 18:34 Constitutional: This is a well developed, well nourished patient who is awake, alert, sb4 and in no acute distress. Head/Face: Normocephalic, atraumatic. Eyes: Extra-ocular motions intact. Periorbital areas with no swelling, redness, or edema. ENT: Mucous membranes moist. Cardiovascular: Regular rate and rhythm with a normal S1 and S2. Respiratory: No increased work of breathing, no retractions or nasal flaring. Abdomen/GI: Soft, non-tender, no distension. Skin: Warm, dry with normal turgor. Normal color with no rashes, no lesions, and no evidence of cellulitis. Neuro: Awake and alert, GCS 15, oriented to person, place, time, and situation. Motor strength 5/5 in all extremities. Sensory grossly intact. Vital Signs: 16:27 BP 157 / 92; Pulse 90; Resp 17; Temp 97.7; Pulse Ox 99% ; Weight 117.93 kg; Height 5 ap3 ft. 9 in. ; Pain 0/10; 17:00 BP 126 / 72; Pulse 85; Resp 14; Pulse Ox 98% ; me1 18:00 BP 126 / 87; Pulse 73; Resp 16; Pulse Ox 98% ; me1 18:18 BP 128 / 87; Pulse 70; Resp 14; Temp 98.2; Pulse Ox 100% ; me1 16:27 Body Mass Index 38.39 (117.93 kg, 175.26 cm) ap3 16:27 Pain Scale: Adult ap3 MDM: 16:22 Medical Screening Exam initiated sb4 18:36 Data reviewed: vital signs, nurses notes, lab test result(s), and as a result, I will sb4 discharge patient. Counseling: I had a detailed discussion with the patient and/or guardian regarding the historical points, exam findings, and any diagnostic results supporting the discharge/admit diagnosis, lab results, the need for outpatient follow up, for definitive care, to return to the emergency department if symptoms worsen or persist or if there are any questions or concerns that arise at home. 18:37 ED course: Patient is additionally requesting a refill of his atenolol that he takes sb4 for his SVT. 12/13 16:35 Order name: CBC with Diff; Complete Time: 17:23 sb4 12/13 16:35 Order name: CMP; Complete Time: 17:34 sb4 12/13 16:35 Order name: Lipase; Complete Time: 17:34 sb4 12/13 16:35 Order name: SARS RAPID; Complete Time: 17:34 sb4 12/13 16:35 Order name: Group A Streptococcus Rapid; Complete Time: 17:26 sb4 12/13 17:28 Order name: Throat Culture EDNM 12/13 16:35 Order name: IV Saline Lock; Complete Time: 17:06 sb4 12/13 16:35 Order name: Labs collected and sent; Complete Time: 17:07 sb4 12/13 17:35 Order name: PO challenge; Complete Time: 17:39 sb4 Administered Medications: 17:12 Drug: Ondansetron IVP 4 mg IVP once; over 2 minutes Route: IVP; Site: right antecubital;me1 17:39 Follow up: Response: No adverse reaction; Nausea is decreased me1 17:12 Drug: NS 0.9% IV 1000 ml IV at 1 bolus Per protocol; to be given as a bolus over 60 me1 minutes Route: IV; Rate: 1 bolus; Site: right antecubital; 18:23 Follow up: Response: No adverse reaction; IV Status: Completed infusion; IV Intake: me1 1000ml 17:13 Drug: TORadol - Ketorolac IVP 15 mg IVP once Route: IVP; Site: right antecubital; me1 17:39 Follow up: Response: No adverse reaction; Pain is decreased me1 Disposition: 12/14 09:08 Co-signature as Attending Physician, Dexter Freeman MD I reviewed the patient's care rn provided by the Advanced Practice Provider and agree with the diagnosis and treatment plan. Disposition Summary: 12/13/24 18:16 Discharge Ordered Notes: Location: Home sb4 Problem: new sb4 Symptoms: have improved sb4 Condition: Stable sb4 Diagnosis - Viral infection, unspecified sb4 Followup: sb4 - With: Emergency Department - When: As needed - Reason: Trouble breathing, Worsening of condition Discharge Instructions: - Discharge Summary Sheet sb4 - Viral Illness, Adult sb4 Forms: - Medication Reconciliation Form sb4 - Patient Portal Instructions sb4 - Leadership Thank You Letter sb4 Prescriptions: - Atenolol 100 mg Oral Tablet - take 1 tablet ORAL route once daily; 30 tablet; Refills: 0, Product Selection sb4 Permitted - ondansetron 8 mg Oral Tablet,disintegrating - take 1 tablet ORAL route every 8 hours PRN nausea/vomiting; 10 tablet; Refills: sb4 0, Product Selection Permitted Signatures: Dispatcher [employer] Dexter Mcdonald MD MD rn Prokisch, Amanda, RN RN ap3 Jessy Burnett PA-C PA-C sb4 Maritza Little RN RN me1
[2024-12-14 00:27] VITALS: BP 128/87; TEMP 98.2; O2SAT 100
== END 2024-12-13 18:23 | disposition home or self-care (01) ==
LOC: ER 16:07
DX: B34.9 Viral infection, unspecified (principal); Z11.52 Encounter for screening for COVID-19
CPT/HCPCS: 36415; 80053; 83690; 85025; 87070; 87426; 96361; 96374; 96375; 99284; J2405; J7030

== ENCOUNTER 2024-12-16 21:06 | Emergency (ER) | payer SELFPAY ==
--- OUTSIDE RECORDS SUMMARY | 2024-12-16 21:11 | XMS REPORT | Continuity of Care Document ---
Author Name Unknown Address [address] [facility] [address] [place] [address] [facility] [place] Address [address] 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 Role Phone PCP, PATIENT DOES NOT HAVE A Primary Care Physic [place] Unavailable SAKINA WALLER Attending Clinician Unavailable SUSAN DOMINGUEZ Attending Clinician Unavailable LAB90 Attending Clinician Unavailable KARINA COFFMAN Attending Clinician Unavailable Meghna BASILIO MD, John Attending Clinician [phone] Doctor Unassigned, [place] Attending Clinician U Madelin Santiago LVN Attending Clinician [phone] Gurjit Cervantes MD Attending Clinician [phone] Marshall Schmidt MD Attending Clinician [phone] Bill Alcantara MD Attending Clinician [phone] MARSHALL SCHMIDT Admitting Clinician Marshall Mac MD Admitting Clinician [phone] Payers Payer Name Policy Type Policy Number Effective Date Expirati on Date Source [facility] JANICE ALVARADO COPAY FOCUS 9 [id number] 2024 00:00:00 Problems Condition Name Condition Details Condition Category Status Onset Date Resolution Date Last Treatment Date Treating Clinician Comments Source Well adult exam Well adult exam Disease Active 2023-08 00:00: 00 Henna Seybold - Externa l Obesity (BMI 30-39.9) Obesity (BMI 30-39.9) Disease Active 12-05 00:00: 00 [facility] Trauma Trauma Disease Active 12-04 00:00: 00 [facility] Closed fracture of posterior lip of right acetabulum without additional fracture Closed fracture of posterior lip of right acetabulum without additional fracture Disease Active 12-04 00:00: 00 Overview: Formattin g of this note might be different from the original. Added automatic ally from request for surgery [id number] [facility] SVT (supravent ricular tachycardi a) (CMS-HCC) (multi HCC) SVT (supravent ricular tachycardi a) ([facility]-HCC) (multi HCC) Disease Active Henna Seybold - [...] NO KNOWN ALLERGIE S Drug Class Active [facility] Social History Social Habit Start Date Stop Date Quantity Comments Source History SDOH Alcohol Std Drinks [facility] History SDOH Alcohol Binge [facility] History SDOH Social Connections Get Together [facility] History SDOH Social Connections [facility] History SDOH Social Connections Membership [facility] History SDOH Social Connections Meetings [facility] History SDOH Physical Activity DPW [facility] History SDOH Housing Places Lived [facility] Sexual orientation K ernestina Adamesold - External [...] (event) 2022-12-16 00:00:00 2022-12-26 10:21:00 Not sure [facility] History SDOH Alcohol Frequency 2022-12-04 00:00:00 2022-12-04 00:00:00 1 [facility] History SDOH Social Connections Phone 2022-12-04 00:00:00 2022-12-04 00:00:00 3 [facility] History SDOH Social Connections Living 2022-12-04 00:00:00 2022-12-04 00:00:00 98 [facility] History SDOH Physical Activity MPS 2022-12-04 00:00:00 2022-12-04 00:00:00 0 [facility] History SDOH Financial 2022-12-04 00:00:00 2022-12-04 00:00:00 5 [facility] History SDOH Food Worry 2022-12-04 00:00:00 2022-12-04 00:00:00 1 [facility] History SDOH Food Scarcity 2022-12-04 00:00:00 2022-12-04 00:00:00 1 [facility] History SDOH Transport Med 2022-12-04 00:00:00 2022-12-04 00:00:00 2 [facility] History SDOH Transport Non-Med 2022-12-04 00:00:00 2022-12-04 00:00:00 2 [facility] History SDOH Housing Unable to Pay 2022-12-04 00:00:00 2022-12-04 00:00:00 2 [facility] History SDOH Housing Homeless Last Year 2022-12-04 00:00:00 2022-12-04 00:00:00 2 [facility] Sex assigned at 1990 00:00:00 1990 00:00:00 [...] 12-09 00:00: 00 01-07 04:59 :00 No [id number] 30mg inject 0.3 mL under the skin every 12 (twelve) hours for 28 days. [facility] docusate 100 mg capsule 12-09 00:00: 00 12-26 04:59 :00 No [id number] 100mg Take 1 capsule by mouth in the morning and 1 capsule in the evening. Do all this for 15 days. [facility] methocarbam oL 750 mg tablet 12-09 00:00: 00 12-25 04:59 :00 No [id number] 750mg Take 1 tablet by mouth 3 (three) times daily as needed for Pain (scale 4-6) for up to 14 days. [facility] traMADoL 50 mg tablet 12-09 00:00: 00 12-18 04:59 :00 No [id number] 50mg Take 1 tablet by mouth every 6 (six) hours as needed for Pain (scale 4-6) or Pain (scale 7-10) for up to 7 days. Indication s: acute pain [facility] [place] ondansetron (ZOFRAN) 4 mg tablet 12-09 00:00: 00 12-16 04:59 :00 No [id number] 4mg Take 1 tablet by mouth every 12 (twelve) hours as needed for Nausea and Vomiting (N/V) for up to 5 days. [facility] HYDROcodone -acetaminop hen 5-325 mg tablet 12-09 00:00: 00 12-16 04:59 :00 No [id number] 1{tbl} Take 1 tablet by mouth every 6 (six) hours as needed for Pain (scale 7-10) for up to 5 days. Indication s: acute pain [facility] gabapentin (NEURONTIN) capsule 300 mg 12-08 04:45: 00 Yes 300mg 300 mg, Oral, TID, First dose (after last modificati on) on 12/07/22 at 2345, Until Discontinu ed, Routine [facility] [place] HYDROcodone -acetaminop hen (NORCO 5) 5-325 mg tablet 1 tablet 12-08 04:45: 00 Yes 1{tbl} 1 tablet, Oral, Q4HPRN, Starting on 12/07/22 at 2345, Until Discontinu ed, Routine, Pain (scale 4-6) [facility] ondansetron (ZOFRAN) tablet 4 mg 12-07 01:59: 00 Yes 4mg 4 mg, Oral, Q8HPRN, Starting on Fri12/06/22 at 2059, Until Discontinu ed, Routine, Nausea and Vomiting (N/V) [facility] ondansetron (ZOFRAN (PF)) injection 4 mg 12-06 21:15: 00 12-06 20:35 :00 No 4mg 4 mg, Slow IV Push, ONCE, On Fri12/06/22 at 1615, For 1 dose
Do ses of ondansetro n 16 mg and above need to be administer ed via IV piggyback. For Dose >=24mg ECG monitoring is advisable.
[facility] ceFAZolin (ANCEF) 1,000 mg in [...] of therapy: within 24 hours of surgery [facility] povidone-io dine (BETADINE) 10 % solution 12-06 16:56: 00 12-06 18:58 :39 No PRN, Starting on Fri12/06/22 at 1156, Until Fri12/06/22 at 1358, Routine, Intra-op [facility] foLIC acid (FOLATE) tablet 1 mg 12-05 14:00: 00 Yes 1mg 1 mg, Oral, DAILY, First dose on Fri12/05/22 at 0900, Until Discontinu ed, Routine [facility] thiamine (VITAMIN B1) tablet 100 mg 12-05 14:00: 00 Yes 100mg 100 mg, Oral, DAILY, First dose on Fri12/05/22 at 0900, Until Discontinu ed, Routine [facility] oxazepam (SERAX) capsule 15 mg 12-04 18:36: 08 Yes 15mg 15 mg, Oral, Q4HPRN, Starting on Fri12/04/22 at 1336, Until Discontinu ed, Routine, Only while awake for DBP equal to or greater than 100, HR equal to or greater than 100. [facility] docusate (COLACE) capsule 100 mg 12-04 14:00: 00 Yes 100mg 100 mg, Oral, DAILY, First dose on Fri12/04/22 at 0900, Until Discontinu ed, Routine [facility] methocarbam oL (ROBAXIN) tablet 500 mg 12-04 13:00: 00 Yes 500mg 500 mg, Oral, QID, First dose on Fri12/04/22 at 0800, Until Discontinu ed, Routine [facility] enoxaparin (LOVENOX) injection 30 mg 12-04 13:00: 00 Yes 30mg 30 mg, Subcutaneo us, Q12H, First dose on Fri12/04/22 at 0800, Until Discontinu ed, Routine [facility] ketamine (KETALAR) injection 100 mg 12-04 11:45: 00 12-04 09:48 :00 No 100mg 100 mg, Slow IV Push, ONCE, 1 dose, On Fri12/04/22 at 0645, Routine [facility] morpHINE (2 mg/mL) injection 4 mg 12-04 11:40: 56 Yes 4mg 4 mg, Slow IV Push, Q3HPRN, Starting on Fri12/04/22 at 0640, Until Discontinu ed, Routine, Pain (scale 7-10) [facility] HYDROcodone -acetaminop hen (NORCO 5) 5-325 mg tablet 1 tablet 12-04 11:38: 48 12-08 04:33 :17 No 1{tbl} 1 tablet, Oral, Q6HPRN, Starting on Fri12/04/22 at 0638, Until 12/07/22 at 2333, Routine, Pain (scale 4-6) [facility] acetaminoph en (TYLENOL) tablet 650 mg 12-04 11:38: 23 Yes 650mg 650 mg, Oral, Q6HPRN, Starting on Fri12/04/22 at 0638, Until Discontinu ed, Routine, Pain (scale 1-3) [facility] propofoL IV infusion 200 mg 12-04 11:30: 00 12-04 09:53 :00 No 200mg 200 mg, Slow IV Push, ONCE, On Fri12/04/22 at 0630, For 1 dose [facility] Vital Signs Vital Name Observation [...] External Respiratory rate 2024-06-29 15:33:00 16 /min Ehnna ybold - External Body height 2024-06-29 15:33:00 175.3 cm Ashley kassie Abebeybold - External Body weight 2024-06-29 15:33:00 118.842 kg Ashley kassie Abebeybold - External BMI 2024-06-29 15:33:00 38.69 kg/m2 Ashley kassie Abebeybold - External Oxygen saturation in Arterial blood by Pulse oximetry 2024-06-29 15:33:00 100 /min [place] Adamesorly ld - External Body temperature 2022-12-26 16:53:00 35.83 Sandrine [facility] Body height 2022-12-26 16:53:00 175.3 cm [facility] Body weight 2022-12-26 16:53:00 94.756 kg [facility] BMI 2022-12-26 16:53:00 30.85 kg/m2 [facility] Systolic blood pressure 2022-12-10 15:46:00 100 mm[Hg] [facility] Diastolic blood pressure 2022-12-10 15:46:00 49 mm[Hg] [facility] Heart rate 2022-12-10 15:46:00 57 /min Unive [facility] Body temperature 2022-12-10 15:46:00 36.72 Sandrine [facility] Respiratory rate 2022-12-10 15:46:00 18 /min [facility] Oxygen saturation in Arterial blood by Pulse oximetry 2022-12-10 15:46:00 97 /min [facility] Body height 2022-12-04 07:17:00 172.7 cm [facility] Body weight 2022-12-04 07:17:00 104.327 kg [facility] BMI 2022-12-04 07:17:00 34.97 kg/m2 [facility] Systolic blood pressure 2022-12-06 08:23:00 122 mm[Hg] [facility] Diastolic blood pressure 2022-12-06 08:23:00 70 mm[Hg] [facility] Heart rate 2022-12-06 08:23:00 84 /min Unive [facility] Body temperature 2022-12-06 08:23:00 36.39 Sandrine [facility] Respiratory rate 2022-12-06 08:23:00 18 /min [facility] Oxygen saturation in Arterial blood by Pulse oximetry 2022-12-06 08:23:00 95 /min [facility] Body height 2022-12-04 07:17:00 172.7 cm [facility] Body weight 2022-12-04 07:17:00 104.327 kg [facility] BMI 2022-12-04 07:17:00 34.97 kg/m2 [facility] Procedures Procedure Date / Time Performed Performing Clinician Source XR FEMUR 2 VW RIGHT 2022-12-26 16:20:15 Karina Coffman [facility] ASSIGNMENT OF BENEFITS 2022-12-26 15:22:34 Docto r Unassigned, [place] [facility] STATEMENT OF PATIENT FINANCIAL RESPONSIBILITY 2022-12-26 05:01:00 Doctor Unassigned, [place] [facility] POCT GLUCOSE (AUTOMATED) 2022-12-09 13:25:00 Meghna, [facility] POCT GLUCOSE (AUTOMATED) 2022-12-09 13:25:00 Karina Coffman [facility] CT PELVIS WO CONTRAST 2022-12-07 01:31:06 Sandra Coffman [facility] CT PELVIS WO CONTRAST 2022-12-07 01:31:06 Sandra Coffman [facility] VBG+VCOOX+NA+K+GLU+CA2+ 2022-12-06 17:03:00 Meghna [facility] FL TIME OR (NON-REPORTABLE) 2022-12-06 16:40:52 Meghna [facility] FL TIME OR (NON-REPORTABLE) 2022-12-06 16:40:52 Meghna [facility] VBG+VCOOX+NA+K+GLU+CA2+ 2022-12-06 15:14:00 Meghna [facility] VBG+VCOOX+NA+K+GLU+CA2+ 2022-12-06 14:07:00 Karina Coffman [facility] VBG+VCOOX+NA+K+GLU+CA2+ 2022-12-06 13:19:00 Karina Coffman [facility] ACETABULUM ORIF 2022-12-06 12:00:00 Karina Coffman [facility] FEMUR HARDWARE REMOVAL 2022-12-06 12:00:00 Layne Coffman [facility] ACETABULUM ORIF 2022-12-06 12:00:00 Karina Coffman [facility] FEMUR HARDWARE REMOVAL 2022-12-06 12:00:00 Layne Coffman [facility] CT PELVIS WO CONTRAST 2022-12-04 11:02:08 Benji Lim [facility] CT PELVIS WO CONTRAST 2022-12-04 11:02:08 Benji Lim [facility] XR KNEE <3 VW RIGHT 2022-12-04 10:19:00 Veronica Lim [facility] XR KNEE <3 VW RIGHT 2022-12-04 10:19:00 Veronica Lim [facility] MODERATE SEDATION 2022-12-04 09:34:52 Garrett Knutson [facility] MODERATE SEDATION 2022-12-04 09:34:52 Garrett Knutson [facility] XR FEMUR 2 VW RIGHT 2022-12-04 [facility]:18[facility]W RIGHT 2022-12-04 09:18:16 Raphael [facility] XR KNEE <3 VW RIGHT 2022-12-04 09:18:16 Black, [facility] XR PELVIS 3+ VW 2022-12-04 [facility]:18[facility] 2022-12-04 09:18:16 Raphael, [facility] XR HIPS 2 VW RIGHT 2022-12-04 09:18:16 Raphael [facility] XR KNEE <3 VW RIGHT 2022-12-04 09:18:16 Raphael [facility] XR PELVIS 3+ VW 2022-12-04 09:18:16 Veronica Lim [facility] ABORH CONFIRMATION (LAB ONLY) 2022-12-04 08:11:00 Billy [facility] ABORH CONFIRMATION (LAB ONLY) 2022-12-04 08:11:00 Billy [facility] CT CERVICAL SPINE WO CONTRAST 2022-12-04 08:02:04 Hiram [facility] CT CERVICAL SPINE WO CONTRAST 2022-12-04 08:02:04 Hiram [facility] CT LUMBAR SPINE WO CONTRAST 2022-12-04 07[facility]54[facility] 2022-12-04 07:54:51 Hiram [facility] CT LUMBAR SPINE WO CONTRAST 2022-12-04 07:54:51 Hiram [facility] CT THORACIC SPINE WO CONTRAST 2022-12-04 07:54:51 Hiram [facility] CT THORAX WO CONTRAST 2022-12-04 07:47:34 Hiram [facility] CT THORAX WO CONTRAST 2022-12-04 07:47:34 Hiram [facility] CT HEAD WO CONTRAST 2022-12-04 07:47:26 Yazmin Gandhi [facility] CT HEAD WO CONTRAST 2022-12-04 07:47:26 Yazmin Gandhi [facility] BASIC METABOLIC PANEL (NA, K, CL, CO2, GLUCOSE, BUN, CREATININE, CA) 2022-12-04 07:27:00 Billy [facility] CBC WITHOUT DIFF 2022-12-04 07:27:00 Billy [facility] PROTHROMBIN TIME / INR 2022-12-04 07:27:00 Олег Cervantes [facility] ACTIVATED PARTIAL THRMPLAS LATANYA 2022-12-04 07:27:00 Billy [facility] HB ABO GROUPING 2022-12-04 07:27:00 [facility]OLIC PANEL (NA, K, CL, CO2, GLUCOSE, BUN, CREATININE, CA) 2022-12-04 07:27:00 Billy [facility] CBC WITHOUT DIFF 2022-12-04 07:27:00 Billy [facility] PROTHROMBIN TIME / INR 2022-12-04 07:27:00 Олег Cervantes [facility] ACTIVATED PARTIAL THRMPLAS LATANYA 2022-12-04 07:27:00 Billy [facility] HB ABO GROUPING 2022-12-04 07:27:00 Gurjit Cervantes [facility] HOSPITAL ADMISSION 2022-12-04 05:01:00 Doctor Un assigned, [place] [facility] HOSPITAL ADMISSION 2022-12-04 05:01:00 Doctor Un assigned, [place] [facility] Encounters Start Date/Time End Date/Time Encounter Type Admission Type Attending [facility] Care Facility Care Department Encounter ID Source 2024-12-03 16:00:00 2024-12-03 16:00:00 Outpatient SAKINA WALLER [id number] Henna Sharma 2024-08-31 14:00:00 2024-08-31 14:00:00 Outpatient SUSAN DOMINGUEZ [id number] Henna Sharma 2024-07-01 00:00:00 2024-07-01 00:00:00 Outpatient SUSAN DOMINGUEZ [id number] Henna Sharma 2024-06-29 10:50:00 2024-06-29 10:50:00 Outpatient LAB90 HENNA SEAY [id number] Henna Sharma 2024-06-29 09:30:00 2024-06-29 09:30:00 Outpatient [facility]INGUE[facility] [id number] [facility]24-02-24 15:30:41 2024-02-24 15:30:41 Outpatient SFA SFA [id number] Imer Moreno 2023-02-06 09:40:00 2023-02-06 09:40:00 Outpatient Alexander MEGHNAKARINA STAHL [facility] [id number] [facility] 2022-12-26 10:36:51 2022-12-26 23:59:00 Hospital Encounter MeghnaKarina [facility] [id number] 350.1.13.10 [id number] [id number] [facility] 2022-12-26 09:40:00 2022-12-26 12:33:53 Outpatient R MEGHNAKARINA [facility] [id number] [facility] 2022-12-26 09:40:00 2022-12-26 12:33:53 Office Visit MeghnaKarina [facility] [id number] 350.1.13.10 [id number] [id number] [facility] 2022-12-26 00:00:00 2022-12-26 00:00:00 Orders Only Doctor Unassigned, [place] [facility] [id number] 350.1.13.10 4.2.7.2.686 [id number] [facility] 2022-12-11 00:00:00 2022-12-11 00:00:00 Transition of Care Madelin Gutierrez [id number] 350.1.13.10 4.2.7.2.686 [id number] [facility] 2022-12-04 02:18:00 2022-12-10 18:11:00 Inpatient T KARINA COFFMAN [facility] STR [id number] [facility] 2022-12-04 02:18:00 2022-12-10 18:11:00 Hospital Encounter Gurjit Cervantes, Marshall Alcantara, Bill Ray [facility] 1.2840.114 350.1.13.10 4.2.7.2.686 [id number] [facility] 2022-12-06 07:00:00 2022-12-06 12:10:00 Surgery [facility] [id number] [id number] [id number] [id number] [facility] Results Test Description Test Time Test Comments Results Result Co mments Source [facility]CA2+2022-12-10 02:40:45* Test Item Value Reference Range Interpretation Comme nts PH (test code = 8281208857) 7.38 7.32-7.42 PCO2 HUMZA (test code = 2317705788) 40 See_Comment L [Automated messa ge] The system which generated this result transmitted reference range: 41 - 51 mmHg. The reference range was not used to interpret this result as normal/abnormal. PO2 HUMZA (test code = 6168412411) 82 See_Comment HH [Automated messa ge] The system which generated this result transmitted reference range: 25 - 40 mmHg. The reference range was not used to interpret this result as normal/abnormal. HCO3 HUMZA (test code = 8971900474) 24 See_Comment [Automated messa ge] The system which generated this result transmitted reference range: 24 - 28 mEq/L. The reference range was not used to interpret this result as normal/abnormal. AC VBE(BEAKER) (test code = 9642626309) -1.4 mEq/L THB HUMZA (test code = 9108110188) 14.7 g/dL 13.5-18.0 %O2HB HUMZA (test code = 4484311752) 94.4 % 52.0-63.0 H %COHB HUMZA (test code = 7249100450) 1.8 % 0.0-1.5 H %METHB HUMZA (test code = 0744396218) 0.2 % 0.4-1.5 L VOL%O2 HUMZA (test code = 8771173224) 19.5 % 6.0-12.0 H QUES NA (test code = 3815573968) 150 mmol/L 135-145 H K+ (test code = 7790781004) 3.9 mmol/L 3.5-5.0 AC CA IONZ (test code = 8724627990) 4.70 mg/dL 4.50-5.30 GLUCOSE (test code = 6704645355) 92 mg/dL 70-110 Lab Interpretation (test code = 48493-0) [facility]normal [facility]CA2+2022-12-10 02:39:14* Test Item Value Reference Range Interpretation Comme nts PH (test code = 4289116388) 7.31 7.32-7.42 L PCO2 HUMZA (test code = 1193452248) 48 See_Comment [Automated messa ge] The system which generated this result transmitted reference range: 41 - 51 mmHg. The reference range was not used to interpret this result as normal/abnormal. PO2 HUMZA (test code = 8482788654) 56 See_Comment HH [Automated messa ge] The system which generated this result transmitted reference range: 25 - 40 mmHg. The reference range was not used to interpret this result as normal/abnormal. HCO3 HUMZA (test code = 0646295483) 24 See_Comment [Automated messa ge] The system which generated this result transmitted reference range: 24 - 28 mEq/L. The reference range was not used to interpret this result as normal/abnormal. AC VBE(BEAKER) (test code = 0670275929) -2.7 mEq/L THB HUMZA (test code = 0087780613) 13.3 g/dL 13.5-18.0 L %O2HB HUMZA (test code = 4934206352) 87.4 % 52.0-63.0 H %COHB HUMZA (test code = 2254631014) 1.1 % 0.0-1.5 %METHB HUMZA (test code = 2299297849) 0.3 % 0.4-1.5 L VOL%O2 HUMZA (test code = 7060027875) 16.3 % 6.0-12.0 H QUES NA (test code = 7151701973) 138 mmol/L 135-145 K+ (test code = 2562680636) 4.2 mmol/L 3.5-5.0 AC CA IONZ (test code = 9705822443) 4.60 mg/dL 4.50-5.30 GLUCOSE (test code = 1338004228) 196 mg/dL 70-110 H Lab Interpretation (test code = 28466-6) Abnormal [facility]+K+GLU[facility]CA2+2022-12-10 02:38:38* Test Item Value Reference Range Interpretation Comme nts PH (test code = 3251899954) 7.32 7.32-7.42 PCO2 HUMZA (test code = 5096827832) 46 See_Comment [Automated messa ge] The system which generated this result transmitted reference range: 41 - 51 mmHg. The reference range was not used to interpret this result as normal/abnormal. PO2 HUMZA (test code = 6376479589) 143 See_Comment HH [Automated messa ge] The system which generated this result transmitted reference range: 25 - 40 mmHg. The reference range was not used to interpret this result as normal/abnormal. HCO3 HUMZA (test code = 5993631195) 23 See_Comment L [Automated messa ge] The system which generated this result transmitted reference range: 24 - 28 mEq/L. The reference range was not used to interpret this result as normal/abnormal. AC VBE(BEAKER) (test code = 8310457769) -3.1 mEq/L THB HUMZA (test code = 5313145067) 12.4 g/dL 13.5-18.0 L %O2HB HUMZA (test code = 2631177397) 97.5 % 52.0-63.0 H %COHB HUMZA (test code = 8549840006) 1.1 % 0.0-1.5 %METHB HUMZA (test code = 2807277696) 0.3 % 0.4-1.5 L VOL%O2 HUMZA (test code = 2383725808) 17.3 % 6.0-12.0 H QUES NA (test code = 9898184929) 133 mmol/L 135-145 L K+ (test code = 0547638590) 4.4 mmol/L 3.5-5.0 AC CA IONZ (test code = 2382661571) 4.50 mg/dL 4.50-5.30 GLUCOSE (test code = 5266203828) 141 mg/dL 70-110 H Lab Interpretation (test code = 93093-1) Abnormal [facility] GLUCOSE (AUTOMATED)2022-12-09 13:25:50* Test Item Value Reference Range Interpretation Comme nts POCT GLU (test code = 0729150873) 107 mg/dL 70-110 Lab Interpretation (test cod e = 88168-7) Normal [facility] GLUCOSE (AUTOMATED)2022-12-09 13:25:50* Test Item Value Reference Range Interpretation Comme nts POCT GLU (test code = 0115979993) 107 mg/dL 70-110 Lab Interpretation (test cod e = 49574-1) Normal [facility] Confirmation (Lab Only)2022-12-04 08:14:00* Test Item Value Reference Range Interpretation Comme nts ABO & RH (test code = 20) O Positive [facility] Confirmation (Lab Only)2022-12-04 08:14:00* Test Item Value Reference Range Interpretation Comme nts ABO & RH (test code = 20) O Positive [facility] Metabolic Panel (NA, K, CL, CO2, GLUCOSE, BUN, CREATININE, CA)2022-12-04 07:47:57* Test Item Value Reference Range Interpretation Comme nts NA (test code = 2113655287) 141 mmol/L 135-145 K (test code = 8063820593) 4.4 mmol/L 3.5-5.0 Slight hemolysis CL (test code = 7779767446) 106 mmol/L 98-108 CO2 TOTAL (test code = 8476401213) 23 mmol/L 23-31 AGAP (test code = 9283942550) 12 2-16 BUN (test code = 2763227835) 7 mg/dL 7-23 Slight hemolysis GLUCOSE (test code = 0493735345) 95 mg/dL 70-110 CREATININE (test code = 3449686621) 0.63 mg/dL 0.60-1.25 CALCIUM (test code = 9350525841) 8.4 mg/dL 8.6-10.6 L eGFR (test code = 1983556661) 148.5 mL/min/1.73m2 NADIA (test code = NADIA) [...] imaging tests). Lab Interpretation (test code = 12928-9) Abnormal [facility] Metabolic Panel (NA, K, CL, CO2, GLUCOSE, BUN, CREATININE, CA)2022-12-04 07:47:57* Test Item Value Reference Range Interpretation Comme nts NA (test code = 3132494567) 141 mmol/L 135-145 K (test code = 6468761486) 4.4 mmol/L 3.5-5.0 Slight hemolysis CL (test code = 3301431193) 106 mmol/L 98-108 CO2 TOTAL (test code = 0680308759) 23 mmol/L 23-31 AGAP (test code = 0307470095) 12 2-16 BUN (test code = 5716601668) 7 mg/dL 7-23 Slight hemolysis GLUCOSE (test code = 8605156876) 95 mg/dL 70-110 CREATININE (test code = 7584263255) 0.63 mg/dL 0.60-1.25 CALCIUM (test code = 1359708546) 8.4 mg/dL 8.6-10.6 L eGFR (test code = 1360196356) 148.5 mL/min/1.73m2 NADIA (test code = NADIA) [...] imaging tests). Lab Interpretation (test code = 19743-3) [facility] [id number] 07:45:56* Test Item Value Reference Range Interpretation [...] the indications. Lab Interpretation (test code = 30933-5) Normal [facility] 07:45:56* Test Item Value Reference Range Interpretation Comme [facility] APTT Patient (test code = 3173-2) 29 See_Comment [Automated messa MAD Incubator] The system which generated this result transmitted reference range: 26 - 36 Seconds. The reference range was not used to interpret this result as normal/abnormal. Lab Interpretation (test code = 71316-8) Normal [facility] / [id number] 07:45:56* Test Item Value Reference Range Interpretation [...] the indications. Lab Interpretation (test code = 65131-3) Normal [facility] 07:45:56* Test Item Value Reference Range Interpretation Comme nts APTT Patient (test code = 3173-2) 29 See_Comment [Automated messa ge] The system which generated this result transmitted reference range: 26 - 36 Seconds. The reference range was not used to interpret this result as normal/abnormal. Lab Interpretation (test code = 62569-6) [facility] / [id number] 07:39:53* Test Item Value Reference Range Interpretation [...] result as normal/abnormal. MPV (test code = 65006-9) 9.4 fL 9.8-13.0 L RDW-CV (test code = 788-0) 14.4 % 12.1-15.4 RDW-SD (test code = 04579-3) 46.4 fL 38.5-51.6 NRBC x10^3 (test code = 3651476605) See_Comment [Automated messa ge] The system which generated this result transmitted reference range: 10*3/?L. The reference range was not used to interpret this result as normal/abnormal. NRBC/100 WBC (test code = 5512502424) 0.0 See_Comment [Automated messa ge] The system which generated this result transmitted reference range: 0.0 - 10.0 /100 WBCs. The reference range was not used to interpret this result as normal/abnormal. IPF % (test code = 7153814545) Lab Interpretation (test code = 03606-9) [facility]normal [facility] [id number] 07:39:53* Test Item Value Reference Range Interpretation [...] result as normal/abnormal. MPV (test code = 75672-8) 9.4 fL 9.8-13.0 L RDW-CV (test code = 788-0) 14.4 % 12.1-15.4 RDW-SD (test code = 35627-8) 46.4 fL 38.5-51.6 NRBC x10^3 (test code = 1344421988) See_Comment [Automated messa ge] The system which generated this result transmitted reference range: 10*3/?L. The reference range was not used to interpret this result as normal/abnormal. NRBC/100 WBC (test code = 4217332075) 0.0 See_Comment [Automated messa ge] The system which generated this result transmitted reference range: 0.0 - 10.0 /100 WBCs. The reference range was not used to interpret this result as normal/abnormal. IPF % (test code = 1012753368) Lab Interpretation (test code = 07939-1) [facility]normal [facility] - The Type and Screen [...] POSITIVE IAT (test code = 1185) Negative [facility] The Type and Screen [...] POSITIVE IAT (test code = 1185) Negative [facility]"
--- NOTE | 2024-12-16 23:44 | ER ---
Nurse's Notes [facility] Name: Rusty Read Jr Age: 34 yrs Sex: Male : 1990 Arrival Date: 12/16/2024 Time: 21:06 Bed IW10 Private MD: Diagnosis: Presentation: 12/16 21:58 Chief complaint: Patient states: Right upper tooth pain and right ear pain onset 2 days cm10 ago. Coronavirus screen: Client denies travel out of the [place] in the last 14 days. Ebola Screen: Patient denies travel to an Ebola-affected area in the 21 days before illness onset. Initial Sepsis Screen: Does the patient meet any 2 criteria? HR > 90 bpm. Does the patient have a suspected source of infection? No. Patient's initial sepsis screen is negative. Risk Assessment: Do you want to hurt yourself or someone else? Patient reports no desire to harm self or others. Onset of symptoms was December 16, 2024. 21:58 Method Of Arrival: Ambulatory cm10 21:58 Acuity: CINDY 4 cm10 Triage Assessment: 21:59 General: Appears in no apparent distress. uncomfortable, Behavior is calm, cooperative. cm10 Pain: Complains of pain in right ear, upper right third molar, upper right second molar and upper right first molar. Neuro: No deficits noted. Level of Consciousness is awake, alert, obeys commands, Oriented to person, place, time, situation, Appropriate for age. Respiratory: No deficits noted. Airway is patent Respiratory effort is even, unlabored, Respiratory pattern is regular, symmetrical. Historical: - Allergies: 21:59 No Known Allergies; cm10 - PMHx: 21:59 SVT; cm10 - PSHx: 21:59 Appendectomy; Pelvis Fx; cm10 - Immunization history:: Adult Immunizations up to date. - Infectious Disease History:: Denies. - Social history:: Smoking status: Patient denies any tobacco usage or history of. Vital Signs: 21:58 BP 125 / 91; Pulse 110; Resp 18; Temp 97.7(O); Pulse Ox 98% on R/A; Weight 113.4 kg; cm10 Height 5 ft. 9 in. ; Pain 9/10; 21:58 Body Mass Index 36.92 (113.40 kg, 175.26 cm) cm10 21:58 Pain Scale: Adult cm10 ED Course: 21:09 Patient arrived in ED. im 21:18 Hardeep Hyde MD is Attending Physician. [facility] 21:58 Triage completed. cm10 21:58 Arm band placed on right wrist. Patient placed in waiting room. cm10 Administered Medications: No medications were administered Outcome: 23:43 Eloped from waiting room, before seeing physician Time discovered patient gone: December 16, vc1 2024 at 23:30 23:43 Patient left the ED. vc1 Signatures: Hardeep Hyde MD MD cha Calcote, Vanessa, RN RN vc1 Anya Green Clarissa RN RN cm10
[2024-12-17 00:16] VITALS: BP 125/91; TEMP 97.7; O2SAT 98
== END 2024-12-16 23:43 | disposition left against medical advice (07) ==
LOC: ER 21:06
DX: Z53.21 Procedure and treatment not carried out due to patient leaving prior to being seen by health care provider (principal)
CPT/HCPCS: 99281

== ENCOUNTER 2024-12-22 07:25 | Emergency (ER) | payer SELFPAY ==
--- OUTSIDE RECORDS SUMMARY | 2024-12-22 07:30 | XMS REPORT | Continuity of Care Document ---
Author Name Unknown Address [address] [facility]. [address] [place] [address] [facility] [place] Address [address] [facility]. 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 Phone PCP, PATIENT DOES NOT HAVE A Primary Care Physic [place] Unavailable SAKINA WALLER Attending Clinician Unavailable SUSAN DOMINGUEZ Attending Clinician Unavailable LAB90 Attending Clinician Unavailable KARINA COFFMAN Attending Clinician Unavailable Meghna BASILIO MD, John Attending Clinician [phone] Doctor Unassigned, [place] Attending Clinician U Madelin Santiago LVN Attending Clinician [phone] Gurjit Cervantes MD Attending Clinician [phone] Marshall Schmidt MD Attending Clinician [phone] Bill Alcantara MD Attending Clinician [phone] MARSHALL SCHMIDT Admitting Clinician Marshall Mac MD Admitting Clinician [phone] Payers Payer Name Policy Type Policy Number Effective Date Expirati on Date Source [facility] JANICE ALVARADO COPAY FOCUS 9 [id number] 2024 00:00:00 Problems Condition Name Condition Details Condition Category Status Onset Date Resolution Date Last Treatment Date Treating Clinician Comments Source Well adult exam Well adult exam Disease Active 2023-08 00:00: 00 Henna Seybold - Externa l Obesity (BMI 30-39.9) Obesity (BMI 30-39.9) Disease Active 12-05 00:00: 00 [facility] Trauma Trauma Disease Active 12-04 00:00: 00 [facility] Closed fracture of posterior lip of right acetabulum without additional fracture Closed fracture of posterior lip of right acetabulum without additional fracture Disease Active 12-04 00:00: 00 Overview: Formattin g of this note might be different from the original. Added automatic ally from request for surgery [id number] [facility] SVT (supravent ricular tachycardi a) (CMS-HCC) [...] NO KNOWN ALLERGIE S Drug Class Active [facility] Social History Social Habit Start Date Stop Date Quantity Comments Source History SDOH Alcohol Std Drinks [facility] History SDOH Alcohol Binge [facility] History SDOH Social Connections Get Together [facility] History SDOH Social Connections Sabianist [facility] History SDOH Social Connections Membership [facility] History SDOH Social Connections Meetings [facility] History SDOH Physical Activity DPW [facility] History SDOH Housing Places Lived [facility] Sexual orientation K ernestina Adamesold - [...] (event) 2022-12-16 00:00:00 2022-12-26 10:21:00 Not sure [facility] History SDOH Alcohol Frequency 2022-12-04 00:00:00 2022-12-04 00:00:00 1 [facility] History SDOH Social Connections Phone 2022-12-04 00:00:00 2022-12-04 00:00:00 3 [facility] History SDOH Social Connections Living 2022-12-04 00:00:00 2022-12-04 00:00:00 98 [facility] History SDOH Physical Activity MPS 2022-12-04 00:00:00 2022-12-04 00:00:00 0 [facility] History SDOH Financial 2022-12-04 00:00:00 2022-12-04 00:00:00 5 [facility] History SDOH Food Worry 2022-12-04 00:00:00 2022-12-04 00:00:00 1 [facility] History SDOH Food Scarcity 2022-12-04 00:00:00 2022-12-04 00:00:00 1 [facility] History SDOH Transport Med 2022-12-04 00:00:00 2022-12-04 00:00:00 2 [facility] History SDOH Transport Non-Med 2022-12-04 00:00:00 2022-12-04 00:00:00 2 [facility] History SDOH Housing Unable to Pay 2022-12-04 00:00:00 2022-12-04 00:00:00 2 [facility] History SDOH Housing Homeless Last Year 2022-12-04 00:00:00 2022-12-04 00:00:00 2 [facility] Sex assigned at 1990 00:00:00 1990 [...] 12-09 00:00: 00 01-07 04:59 :00 No [id number] 30mg inject 0.3 mL under the skin every 12 (twelve) hours for 28 days. [facility] docusate 100 mg capsule 12-09 00:00: 00 12-26 04:59 :00 No [id number] 100mg Take 1 capsule by mouth in the morning and 1 capsule in the evening. Do all this for 15 days. [facility] methocarbam oL 750 mg tablet 12-09 00:00: 00 12-25 04:59 :00 No [id number] 750mg Take 1 tablet by mouth 3 (three) times daily as needed for Pain (scale 4-6) for up to 14 days. [facility] traMADoL 50 mg tablet 12-09 00:00: 00 12-18 04:59 :00 No [id number] 50mg Take 1 tablet by mouth every 6 (six) hours as needed for Pain (scale 4-6) or Pain (scale 7-10) for up to 7 days. Indication s: acute pain [facility] ondansetron (ZOFRAN) 4 mg tablet 12-09 00:00: 00 12-16 04:59 :00 No [id number] 4mg Take 1 tablet by mouth every 12 (twelve) hours as needed for Nausea and Vomiting (N/V) for up to 5 days. [facility] HYDROcodone -acetaminop hen 5-325 mg tablet 12-09 00:00: 00 12-16 04:59 :00 No [id number] 1{tbl} Take 1 tablet by mouth every 6 (six) hours as needed for Pain (scale 7-10) for up to 5 days. Indication s: acute pain [facility] gabapentin (NEURONTIN) capsule 300 mg 12-08 04:45: 00 Yes 300mg 300 mg, Oral, TID, First dose (after last modificati on) on 12/07/22 at 2345, Until Discontinu ed, Routine [facility] HYDROcodone -acetaminop hen (NORCO 5) 5-325 mg tablet 1 tablet 12-08 04:45: 00 Yes 1{tbl} 1 tablet, Oral, Q4HPRN, Starting on 12/07/22 at 2345, Until Discontinu ed, Routine, Pain (scale 4-6) [facility] ondansetron (ZOFRAN) tablet 4 mg 12-07 01:59: 00 Yes 4mg 4 mg, Oral, Q8HPRN, Starting on Fri12/06/22 at 2059, Until Discontinu ed, Routine, Nausea and Vomiting (N/V) [facility] ondansetron (ZOFRAN (PF)) injection 4 mg 12-06 21:15: 00 12-06 20:35 :00 No 4mg 4 mg, Slow IV Push, ONCE, On Fri12/06/22 at 1615, For 1 dose
Do ses of ondansetro n 16 mg and above need to be administer ed via IV piggyback. For Dose >=24mg ECG monitoring is advisable.
[facility] ceFAZolin (ANCEF) 1,000 mg in NaCl [...] of therapy: within 24 hours of surgery [facility] povidone-io dine (BETADINE) 10 % solution 12-06 16:56: 00 12-06 18:58 :39 No PRN, Starting on Fri12/06/22 at 1156, Until Fri12/06/22 at 1358, Routine, Intra-op [facility] foLIC acid (FOLATE) tablet 1 mg 12-05 14:00: 00 Yes 1mg 1 mg, Oral, DAILY, First dose on Fri12/05/22 at 0900, Until Discontinu ed, Routine [facility] thiamine (VITAMIN B1) tablet 100 mg 12-05 14:00: 00 Yes 100mg 100 mg, Oral, DAILY, First dose on Fri12/05/22 at 0900, Until Discontinu ed, Routine [facility] oxazepam (SERAX) capsule 15 mg 12-04 18:36: 08 Yes 15mg 15 mg, Oral, Q4HPRN, Starting on Fri12/04/22 at 1336, Until Discontinu ed, Routine, Only while awake for DBP equal to or greater than 100, HR equal to or greater than 100. [facility] docusate (COLACE) capsule 100 mg 12-04 14:00: 00 Yes 100mg 100 mg, Oral, DAILY, First dose on Fri12/04/22 at 0900, Until Discontinu ed, Routine [facility] methocarbam oL (ROBAXIN) tablet 500 mg 12-04 13:00: 00 Yes 500mg 500 mg, Oral, QID, First dose on Fri12/04/22 at 0800, Until Discontinu ed, Routine [facility] enoxaparin (LOVENOX) injection 30 mg 12-04 13:00: 00 Yes 30mg 30 mg, Subcutaneo us, Q12H, First dose on Fri12/04/22 at 0800, Until Discontinu ed, Routine [facility] ketamine (KETALAR) injection 100 mg 12-04 11:45: 00 12-04 09:48 :00 No 100mg 100 mg, Slow IV Push, ONCE, 1 dose, On Fri12/04/22 at 0645, Routine [facility] morpHINE (2 mg/mL) injection 4 mg 12-04 11:40: 56 Yes 4mg 4 mg, Slow IV Push, Q3HPRN, Starting on Fri12/04/22 at 0640, Until Discontinu ed, Routine, Pain (scale 7-10) [facility] HYDROcodone -acetaminop hen (NORCO 5) 5-325 mg tablet 1 tablet 12-04 11:38: 48 12-08 04:33 :17 No 1{tbl} 1 tablet, Oral, Q6HPRN, Starting on Fri12/04/22 at 0638, Until 12/07/22 at 2333, Routine, Pain (scale 4-6) [facility] acetaminoph en (TYLENOL) tablet 650 mg 12-04 11:38: 23 Yes 650mg 650 mg, Oral, Q6HPRN, Starting on Fri12/04/22 at 0638, Until Discontinu ed, Routine, Pain (scale 1-3) [facility] propofoL IV infusion 200 mg 12-04 11:30: 00 12-04 09:53 :00 No 200mg 200 mg, Slow IV Push, ONCE, On Fri12/04/22 at 0630, For 1 dose [facility] Vital Signs Vital Name Observation Time [...] External Body temperature 2022-12-26 16:53:00 35.83 Sandrine [facility] Body height 2022-12-26 16:53:[address] [facility] Body weight 2022-12-26 16:53:[address] [facility] BMI 2022-12-26 16:53:00 30.85 kg/m2 [facility] Systolic blood pressure 2022-12-10 15:46:00 100 mm[Hg] [facility] Diastolic blood pressure 2022-12-10 15:46:00 49 mm[Hg] [facility] Heart rate 2022-12-10 15:46:00 57 /min Unive [facility] Body temperature 2022-12-10 15:46:00 36.72 Sandrine [facility] Respiratory rate 2022-12-10 15:46:00 18 /min [facility] Oxygen saturation in Arterial blood by Pulse oximetry 2022-12-10 15:46:00 97 /min [facility] Body height 2022-12-04 07:17:[address] [facility] Body weight 2022-12-04 07:17:[address] [facility] BMI 2022-12-04 07:17:00 34.97 kg/m2 [facility] Systolic blood pressure 2022-12-06 08:23:00 122 mm[Hg] [facility] Diastolic blood pressure 2022-12-06 08:23:00 70 mm[Hg] [facility] Heart rate 2022-12-06 08:23:00 84 /min Unive [facility] Body temperature 2022-12-06 08:23:00 36.39 Sandrine [facility] Respiratory rate 2022-12-06 08:23:00 18 /min [facility] Oxygen saturation in Arterial blood by Pulse oximetry 2022-12-06 08:23:00 95 /min [facility] Body height 2022-12-04 07:17:[address] [facility] Body weight 2022-12-04 07:17:[address] [facility] BMI 2022-12-04 07:17:00 34.97 kg/m2 [facility] Procedures Procedure Date / Time Performed Performing Clinician Source XR FEMUR 2 VW RIGHT 2022-12-26 16:20:15 Karina Coffman [facility] ASSIGNMENT OF BENEFITS 2022-12-26 15:22:34 Docto r Unassigned, [place] [facility] STATEMENT OF PATIENT FINANCIAL RESPONSIBILITY 2022-12-26 05:01:00 Doctor Unassigned, [place] [facility] POCT GLUCOSE (AUTOMATED) 2022-12-09 13:25:00 Meghna, [facility] POCT GLUCOSE (AUTOMATED) 2022-12-09 13:25:00 Karina Coffman [facility] CT PELVIS WO CONTRAST 2022-12-07 01:31:06 Sandra Coffman [facility] CT PELVIS WO CONTRAST 2022-12-07 01:31:06 Sandra Coffman [facility] VBG+VCOOX+NA+K+GLU+CA2+ 2022-12-06 17:03:00 Meghna [facility] FL TIME OR (NON-REPORTABLE) 2022-12-06 16:40:52 Meghna [facility] FL TIME OR (NON-REPORTABLE) 2022-12-06 16:40:52 Meghna [facility] VBG+VCOOX+NA+K+GLU+CA2+ 2022-12-06 15:14:00 Meghna [facility] VBG+VCOOX+NA+K+GLU+CA2+ 2022-12-06 14:07:00 Karina Coffman [facility] VBG+VCOOX+NA+K+GLU+CA2+ 2022-12-06 13:19:00 Karina Coffman [facility] ACETABULUM ORIF 2022-12-06 12:00:00 Karina Coffman [facility] FEMUR HARDWARE REMOVAL 2022-12-06 12:00:00 Layne Coffman [facility] ACETABULUM ORIF 2022-12-06 12:00:00 Karina Coffman [facility] FEMUR HARDWARE REMOVAL 2022-12-06 12:00:00 Layne Coffman [facility] CT PELVIS WO CONTRAST 2022-12-04 11:02:08 Benji Lim [facility] CT PELVIS WO CONTRAST 2022-12-04 11:02:08 Benji Lim [facility] XR KNEE <3 VW RIGHT 2022-12-04 10:19:00 Veronica Lim [facility] XR KNEE <3 VW RIGHT 2022-12-04 10:19:00 Veronica Lim [facility] MODERATE SEDATION 2022-12-04 09:34:52 Garrett Knutson [facility] MODERATE SEDATION 2022-12-04 09:34:52 Garrett Knutson [facility] XR FEMUR 2 VW RIGHT 2022-12-04 09:18[facility] 2022-12-04 09:18:16 Raphael [facility] XR KNEE <3 VW RIGHT 2022-12-04 09:18:16 Black, [facility] XR PELVIS 3+ VW 2022-12-04 09:18:16 [facility] VW RIGHT 2022-12-04 09:18:16 Raphael, [facility] XR HIPS 2 VW RIGHT 2022-12-04 09:18:16 Raphael [facility] XR KNEE <3 VW RIGHT 2022-12-04 09:18:16 Raphael [facility] XR PELVIS 3+ VW 2022-12-04 09:18:16 Veronica Lim [facility] ABORH CONFIRMATION (LAB ONLY) 2022-12-04 08:11:00 Billy [facility] ABORH CONFIRMATION (LAB ONLY) 2022-12-04 08:11:00 Billy [facility] CT CERVICAL SPINE WO CONTRAST 2022-12-04 08:02:04 Hiram [facility] CT CERVICAL SPINE WO CONTRAST 2022-12-04 08:02:04 Hiram [facility] CT LUMBAR SPINE WO CONTRAST 2022-12-04 07:54[facility] 2022-12-04 07:54:51 Hiram [facility] CT LUMBAR SPINE WO CONTRAST 2022-12-04 07:54:51 Hiram [facility] CT THORACIC SPINE WO CONTRAST 2022-12-04 07:54:51 Hiram [facility] CT THORAX WO CONTRAST 2022-12-04 07:47:34 Hiram [facility] CT THORAX WO CONTRAST 2022-12-04 07:47:34 Hiram [facility] CT HEAD WO CONTRAST 2022-12-04 07:47:26 Yazmin [facility] CT HEAD WO CONTRAST 2022-12-04 07:47:26 Yazmin [facility] BASIC METABOLIC PANEL (NA, K, CL, CO2, GLUCOSE, BUN, CREATININE, CA) 2022-12-04 07:27:00 Billy [facility] CBC WITHOUT DIFF 2022-12-04 07:27:00 Billy [facility] PROTHROMBIN TIME / INR 2022-12-04 07:27:00 Олег Cervantes [facility] ACTIVATED PARTIAL THRMPLAS LATANYA 2022-12-04 07:27:00 Billy [facility] HB ABO GROUPING 2022-12-04 07:27:00 [facility]OLIC PANEL (NA, K, CL, CO2, GLUCOSE, BUN, CREATININE, CA) 2022-12-04 07:27:00 Billy [facility] CBC WITHOUT DIFF 2022-12-04 07:27:00 Billy [facility] PROTHROMBIN TIME / INR 2022-12-04 07:27:00 Олег Cervantes [facility] ACTIVATED PARTIAL THRMPLAS LATANYA 2022-12-04 07:27:00 Billy [facility] HB ABO GROUPING 2022-12-04 07:27:00 Gurjit Cervantes [facility] HOSPITAL ADMISSION 2022-12-04 05:01:00 Doctor Un assigned, [place] [facility] HOSPITAL ADMISSION 2022-12-04 05:01:00 Doctor Un assigned, [place] [facility] Encounters Start Date/Time End Date/Time Encounter Type Admission Type Attending [facility] Care Department Encounter ID Source 2024-12-03 16:00:00 2024-12-03 16:00:00 Outpatient SAKINA WALLER [id number] Henna Sharma 2024-08-31 14:00:00 2024-08-31 14:00:00 Outpatient SUSAN DOMINGUEZ [id number] Henna Sharma 2024-07-01 00:00:00 2024-07-01 00:00:00 Outpatient SUSAN DOMINGUEZ [id number] Henna Sharma 2024-06-29 10:50:00 2024-06-29 10:50:00 Outpatient LAB90 HENNA SEAY [id number] Henna Sharma 2024-06-29 09:30:00 2024-06-29 09:30:00 Outpatient SUSAN DOMINGUEZ [id number] [facility] 2024-02-24 15:30:41 2024-02-24 15:30:41 Outpatient SFA SFA [id number] Imer Moreno 2023-02-06 09:40:00 2023-02-06 09:40:00 Outpatient Alexander MEGHNAKARINA STAHL [facility] [id number] [facility] 2022-12-26 10:36:51 2022-12-26 23:59:00 Hospital Encounter MeghnaKarina [facility] [place] [id number] [id number] [id number] [id number] [facility] 2022-12-26 09:40:00 2022-12-26 12:33:53 Outpatient R MEGHNAKARINA [facility] [id number] [facility] 2022-12-26 09:40:00 2022-12-26 12:33:53 Office Visit MeghnaKarina [facility] [place] [id number] [id number] [id number] [id number] [facility] 2022-12-26 00:00:00 2022-12-26 00:00:00 Orders Only Doctor Unassigned, [place] [facility] [id number] 350.1.13.10 4.2.7.2.686 [id number] [facility] 2022-12-11 00:00:00 2022-12-11 00:00:00 Transition of Care Madelin Gutierrez [id number] [id number] 4.2.7.2.686 [id number] [facility] 2022-12-04 02:18:00 2022-12-10 18:11:00 Inpatient T KARINA COFFMAN [facility] STR [id number] [facility] 2022-12-04 02:18:00 2022-12-10 18:11:00 Hospital Encounter Gurjit Cervantes, Marshall Alcantara, Bill Ray [facility] [id number] [id number] 4.2.7.2.686 [id number] [facility] 2022-12-06 07:00:00 2022-12-06 12:10:00 Surgery [facility] [id number] [id number] [id number] [id number] [facility] Results Test Description Test Time Test Comments Results Result Co mments Source [facility]+K+GLU+CA2+2022-12-10 02:40:45* Test Item Value Reference Range Interpretation Comme nts PH (test code = 5065046890) 7.38 7.32-7.42 PCO2 HUMZA (test code = 5728019052) 40 See_Comment L [Automated messa ge] The system which generated this result transmitted reference range: 41 - 51 mmHg. The reference range was not used to interpret this result as normal/abnormal. PO2 HUMZA (test code = 4279336591) 82 See_Comment HH [Automated messa ge] The system which generated this result transmitted reference range: 25 - 40 mmHg. The reference range was not used to interpret this result as normal/abnormal. HCO3 HUMZA (test code = 8857898337) 24 See_Comment [Automated messa ge] The system which generated this result transmitted reference range: 24 - 28 mEq/L. The reference range was not used to interpret this result as normal/abnormal. AC VBE(BEAKER) (test code = 8731393269) -1.4 mEq/L THB HUMZA (test code = 4460418312) 14.7 g/dL 13.5-18.0 %O2HB HUMZA (test code = 3938320072) 94.4 % 52.0-63.0 H %COHB HUMZA (test code = 8590303998) 1.8 % 0.0-1.5 H %METHB HUMZA (test code = 6350200147) 0.2 % 0.4-1.5 L VOL%O2 HUMZA (test code = 6568869591) 19.5 % 6.0-12.0 H QUES NA (test code = 8231485866) 150 mmol/L 135-145 H K+ (test code = 0674251120) 3.9 mmol/L 3.5-5.0 AC CA IONZ (test code = 6751186750) 4.70 mg/dL 4.50-5.30 GLUCOSE (test code = 7633191064) 92 mg/dL 70-110 Lab Interpretation (test code = 78025-4) Abnormal [facility]+K+GLU+CA2+2022-12-10 02:39:14* Test Item Value Reference Range Interpretation Comme nts PH (test code = 7534275362) 7.31 7.32-7.42 L PCO2 HUMZA (test code = 9320634084) 48 See_Comment [Automated messa ge] The system which generated this result transmitted reference range: 41 - 51 mmHg. The reference range was not used to interpret this result as normal/abnormal. PO2 HUMZA (test code = 2221158404) 56 See_Comment HH [Automated messa ge] The system which generated this result transmitted reference range: 25 - 40 mmHg. The reference range was not used to interpret this result as normal/abnormal. HCO3 HUMZA (test code = 7363841544) 24 See_Comment [Automated messa ge] The system which generated this result transmitted reference range: 24 - 28 mEq/L. The reference range was not used to interpret this result as normal/abnormal. AC VBE(BEAKER) (test code = 0338823008) -2.7 mEq/L THB HUMZA (test code = 6350540478) 13.3 g/dL 13.5-18.0 L %O2HB HUMZA (test code = 1978463388) 87.4 % 52.0-63.0 H %COHB HUMZA (test code = 6729146483) 1.1 % 0.0-1.5 %METHB HUMZA (test code = 5878927652) 0.3 % 0.4-1.5 L VOL%O2 HUMZA (test code = 5597760733) 16.3 % 6.0-12.0 H QUES NA (test code = 8421921778) 138 mmol/L 135-145 K+ (test code = 8332726753) 4.2 mmol/L 3.5-5.0 AC CA IONZ (test code = 7990353834) 4.60 mg/dL 4.50-5.30 GLUCOSE (test code = 9742666740) 196 mg/dL 70-110 H Lab Interpretation (test code = 52187-8) Abnormal [facility]+K+GLU+CA2+2022-12-10 02:38:38* Test Item Value Reference Range Interpretation Comme nts PH (test code = 8453795850) 7.32 7.32-7.42 PCO2 HUMZA (test code = 4046139121) 46 See_Comment [Automated messa ge] The system which generated this result transmitted reference range: 41 - 51 mmHg. The reference range was not used to interpret this result as normal/abnormal. PO2 HUMZA (test code = 7330840585) 143 See_Comment HH [Automated messa ge] The system which generated this result transmitted reference range: 25 - 40 mmHg. The reference range was not used to interpret this result as normal/abnormal. HCO3 HUMZA (test code = 1366076374) 23 See_Comment L [Automated messa ge] The system which generated this result transmitted reference range: 24 - 28 mEq/L. The reference range was not used to interpret this result as normal/abnormal. AC VBE(BEAKER) (test code = 4208261517) -3.1 mEq/L THB HUMZA (test code = 8682449094) 12.4 g/dL 13.5-18.0 L %O2HB HUMZA (test code = 6314745563) 97.5 % 52.0-63.0 H %COHB HUMZA (test code = 5505013406) 1.1 % 0.0-1.5 %METHB HUMZA (test code = 1283687092) 0.3 % 0.4-1.5 L VOL%O2 HUMZA (test code = 1344465591) 17.3 % 6.0-12.0 H QUES NA (test code = 9804607579) 133 mmol/L 135-145 L K+ (test code = 8436596262) 4.4 mmol/L 3.5-5.0 AC CA IONZ (test code = 5148841567) 4.50 mg/dL 4.50-5.30 GLUCOSE (test code = 8545808550) 141 mg/dL 70-110 H Lab Interpretation (test code = 44631-2) Abnormal [facility] GLUCOSE (AUTOMATED)2022-12-09 13:25:50* Test Item Value Reference Range Interpretation Comme nts POCT GLU (test code = 2416763197) 107 mg/dL 70-110 Lab Interpretation (test cod e = 52802-2) Normal [facility] GLUCOSE (AUTOMATED)2022-12-09 13:25:50* Test Item Value Reference Range Interpretation Comme nts POCT GLU (test code = 4061455332) 107 mg/dL 70-110 Lab Interpretation (test cod e = 09717-2) Normal [facility] Confirmation (Lab Only)2022-12-04 08:14:00* Test Item Value Reference Range Interpretation Comme nts ABO & RH (test code = 20) O Positive [facility] Confirmation (Lab Only)2022-12-04 08:14:00* Test Item Value Reference Range Interpretation Comme nts ABO & RH (test code = 20) O Positive [facility] Metabolic Panel (NA, K, CL, CO2, GLUCOSE, BUN, CREATININE, CA)2022-12-04 07:47:57* Test Item Value Reference Range Interpretation Comme nts NA (test code = 4611372128) 141 mmol/L 135-145 K (test code = 8020581011) 4.4 mmol/L 3.5-5.0 Slight hemolysis CL (test code = 1544677705) 106 mmol/L 98-108 CO2 TOTAL (test code = 3474018661) 23 mmol/L 23-31 AGAP (test code = 9434930669) 12 2-16 BUN (test code = 3678176649) 7 mg/dL 7-23 Slight hemolysis GLUCOSE (test code = 6694207755) 95 mg/dL 70-110 CREATININE (test code = 0243347707) 0.63 mg/dL 0.60-1.25 CALCIUM (test code = 4299997634) 8.4 mg/dL 8.6-10.6 L eGFR (test code = 3718161188) 148.5 mL/min/1.73m2 NADIA (test code = NADIA) [...] imaging tests). Lab Interpretation (test code = 94402-4) Abnormal [facility] Metabolic Panel (NA, K, CL, CO2, GLUCOSE, BUN, CREATININE, CA)2022-12-04 07:47:57* Test Item Value Reference Range Interpretation Comme nts NA (test code = 2679666943) 141 mmol/L 135-145 K (test code = 0193799133) 4.4 mmol/L 3.5-5.0 Slight hemolysis CL (test code = 1885680703) 106 mmol/L 98-108 CO2 TOTAL (test code = 8011767131) 23 mmol/L 23-31 AGAP (test code = 9533930623) 12 2-16 BUN (test code = 8277549835) 7 mg/dL 7-23 Slight hemolysis GLUCOSE (test code = 6936035347) 95 mg/dL 70-110 CREATININE (test code = 2991956815) 0.63 mg/dL 0.60-1.25 CALCIUM (test code = 1805407155) 8.4 mg/dL 8.6-10.6 L eGFR (test code = 3398866887) 148.5 mL/min/1.73m2 NADIA (test code = NADIA) [...] imaging tests). Lab Interpretation (test code = 42695-1) [facility] / [id number] 07:45:56* Test Item Value Reference Range Interpretation [...] the indications. Lab Interpretation (test code = 43550-0) Normal [facility] 07:45:56* Test Item Value Reference Range Interpretation Comme [facility] APTT Patient (test code = 3173-2) 29 See_Comment [Automated messa [employer]] The system which generated this result transmitted reference range: 26 - 36 Seconds. The reference range was not used to interpret this result as normal/abnormal. Lab Interpretation (test code = 33761-1) Normal [facility] / [id number] 07:45:56* Test Item Value Reference Range Interpretation [...] the indications. Lab Interpretation (test code = 40425-4) Normal [facility] 07:45:56* Test Item Value Reference Range Interpretation Comme nts APTT Patient (test code = 3173-2) 29 See_Comment [Automated messa ge] The system which generated this result transmitted reference range: 26 - 36 Seconds. The reference range was not used to interpret this result as normal/abnormal. Lab Interpretation (test code = 21248-4) Normal [facility] / [id number] 07:39:53* Test Item Value Reference Range Interpretation [...] result as normal/abnormal. MPV (test code = 96352-8) 9.4 fL 9.8-13.0 L RDW-CV (test code = 788-0) 14.4 % 12.1-15.4 RDW-SD (test code = 63400-7) 46.4 fL 38.5-51.6 NRBC x10^3 (test code = 2623157096) See_Comment [Automated messa ge] The system which generated this result transmitted reference range: 10*3/?L. The reference range was not used to interpret this result as normal/abnormal. NRBC/100 WBC (test code = 4140886926) 0.0 See_Comment [Automated messa ge] The system which generated this result transmitted reference range: 0.0 - 10.0 /100 WBCs. The reference range was not used to interpret this result as normal/abnormal. IPF % (test code = 3021797019) Lab Interpretation (test code = 38766-3) [facility]normal [facility] / [id number] 07:39:53* Test Item Value Reference Range Interpretation [...] result as normal/abnormal. MPV (test code = 83795-5) 9.4 fL 9.8-13.0 L RDW-CV (test code = 788-0) 14.4 % 12.1-15.4 RDW-SD (test code = 06308-4) 46.4 fL 38.5-51.6 NRBC x10^3 (test code = 7563167748) See_Comment [Automated messa ge] The system which generated this result transmitted reference range: 10*3/?L. The reference range was not used to interpret this result as normal/abnormal. NRBC/100 WBC (test code = 3332333202) 0.0 See_Comment [Automated messa ge] The system which generated this result transmitted reference range: 0.0 - 10.0 /100 WBCs. The reference range was not used to interpret this result as normal/abnormal. IPF % (test code = 8675561216) Lab Interpretation (test code = 00587-8) Abnormal [facility] - The Type and [...] POSITIVE IAT (test code = 1185) Negative [facility] - The Type and [...] POSITIVE IAT (test code = 1185) Negative [facility]"
--- NOTE | 2024-12-22 07:55 | EDPHYS ---
Physician Documentation [facility] Name: Rusty Read Jr Age: 34 yrs Sex: Male : 1990 Arrival Date: 12/22/2024 Time: 07:25 Bed 20 Private MD: ED Physician Dipak Barber HPI: 12/22 09:40 This 34 yrs old Male presents to ER via Ambulatory with complaints of Ear rt Pain, Toothache. 09:40 Patient presents to the ED with right lower dental pain for the past week states that rt now radiates to the ear. Reports modest improvement with ibuprofen but the pain returns. Denies other acute complaints at this time, symptoms are mild in severity, aching nature, no other aggravating or alleviating factors.. Historical: - Allergies: :41 No Known Allergies; iw - Home Meds: :41 Atenolol Oral [Active]; iw - PMHx: 07:41 SVT; iw - PSHx: 07:41 Appendectomy; Pelvis Fx; iw - Immunization history:: Adult Immunizations not up to date. - Infectious Disease History:: Denies. - Social history:: Smoking status: Reported history of juuling and/or vaping. ROS: 09:40 Constitutional: Negative for fever, chills, and weight loss, Cardiovascular: Negative rt for chest pain, palpitations, and edema, Respiratory: Negative for shortness of breath, cough, wheezing, and pleuritic chest pain, Abdomen/GI: Negative for abdominal pain, nausea, vomiting, diarrhea, and constipation, 09:40 ENT: Positive for dental pain, ear pain, Exam: 09:40 Constitutional: This is a well developed, well nourished patient who is awake, alert, rt and in no acute distress. Head/Face: Normocephalic, atraumatic. Chest/axilla: Normal chest wall appearance and motion. Nontender with no deformity. No lesions are appreciated. Cardiovascular: Regular rate and rhythm with a normal S1 and S2. No gallops, murmurs, or rubs. Normal PMI, no JVD. No pulse deficits. Respiratory: Lungs have equal breath sounds bilaterally, clear to auscultation and percussion. No rales, rhonchi or wheezes noted. No increased work of breathing, no retractions or nasal flaring. Abdomen/GI: Soft, non-tender, with normal bowel sounds. No distension or tympany. No guarding or rebound. No evidence of tenderness throughout. 09:40 ENT: Multiple dental caries noted, no signs of drainable abscess oralpharyngeal edema, TMs are clear bilaterally. Vital Signs: 07:42 BP 157 / 98; Pulse 116; Resp 18; Pulse Ox 97% on R/A; Weight 113.4 kg; Height 5 ft. 8 iw in. ; Pain 810; 07:42 Body Mass Index 38.01 (113.40 kg, 172.72 cm) iw 07:42 Pain Scale: Adult iw MDM: 07:48 Medical Screening Exam initiated rt 09:40 Differential diagnosis: Otitis media, dental caries. Data reviewed: vital signs, nurses rt notes. Test considered but Not performed: CT: No signs of RPA, HAT TRIMMER, Michael's angina, CT scan is not indicated. Counseling: I had a detailed discussion with the patient and/or guardian regarding the historical points, exam findings, and any diagnostic results supporting the discharge/admit diagnosis, the need for outpatient follow up, to return to the emergency department if symptoms worsen or persist or if there are any questions or concerns that arise at home. Administered Medications: 08:15 Drug: Ketorolac IM 30 mg IM once Route: IM; Site: right deltoid; bp 08:29 Follow up: Response: No adverse reaction bp 08:15 Drug: Amoxicillin PO 875 mg PO once {Note: GIVEN AUGMENTIN PER MD.} Route: PO; bp 08:29 Follow up: Response: No adverse reaction bp Disposition Summary: 12/22/24 07:54 Discharge Ordered Notes: Location: Home rt Problem: an ongoing problem rt Symptoms: are unchanged rt Condition: Stable rt Diagnosis - Dental caries, unspecified rt Followup: rt - With: Private Physician - When: 2 - 3 days - Reason: Discharge Instructions: - Discharge Summary Sheet rt - Dental Caries, Adult rt Forms: - Work release form bd - Medication Reconciliation Form rt - Antibiotic Education rt - Prescription Opioid Use rt - Patient Portal Instructions rt - Leadership Thank You Letter rt Prescriptions: - Amoxicillin 875 mg Oral Tablet - take 1 tablet ORAL route every 12 hours for 10 days; 20 tablet; Refills: 0, rt Product Selection Permitted Signatures: Sara Cope RN RN José Boateng RN RN bp Dipak Barber, MD rt
--- NOTE | 2024-12-22 07:55 | ER ---
Nurse's Notes [facility] Name: Rusty Read Jr Age: 34 yrs Sex: Male : 1990 Arrival Date: 12/22/2024 Time: 07:25 Bed 20 Private MD: Diagnosis: Dental caries, unspecified Presentation: 12/22 07:40 Chief complaint: Patient states: right upper tooth pain X 3-4 days , pain radiates into iw ear. Coronavirus screen: At this time, the client does not indicate any symptoms associated with coronavirus-19. Ebola Screen: No symptoms or risks identified at this time. 07:40 Method Of Arrival: Ambulatory iw 07:40 Acuity: CINDY 4 iw 07:41 Initial Sepsis Screen: Does the patient meet any 2 criteria? No. Patient's initial iw sepsis screen is negative. Does the patient have a suspected source of infection? No. Patient's initial sepsis screen is negative. Risk Assessment: Do you want to hurt yourself or someone else? Patient reports no desire to harm self or others. Onset of symptoms was December 19, 2024. Triage Assessment: 07:45 General: Appears in no apparent distress. uncomfortable, Behavior is calm, cooperative, bp appropriate for age. Pain: Complains of pain in mouth. EENT: Reports pain in mouth. Neuro: No deficits noted. Cardiovascular: No deficits noted. Respiratory: No deficits noted. GI: No signs and/or symptoms were reported involving the gastrointestinal system. : No signs and/or symptoms were reported regarding the genitourinary system. Derm: No deficits noted. Musculoskeletal: No deficits noted. Historical: - Allergies: 07:41 No Known Allergies; iw - Home Meds: 07:41 Atenolol Oral [Active]; iw - PMHx: 07:41 SVT; iw - PSHx: 07:41 Appendectomy; Pelvis Fx; iw - Immunization history:: Adult Immunizations not up to date. - Infectious Disease History:: Denies. - Social history:: Smoking status: Reported history of juuling and/or vaping. Screenin:45 [facility] ED Fall Risk Assessment (Adult) History of falling in the last 3 months, bp including since admission No falls in past 3 months (0 pts) Confusion or Disorientation No (0 pts) Intoxicated or Sedated No (0 pts) Impaired Gait No (0 pts) Mobility Assist Device Used No (0 pt) Altered Elimination No (0 pt) Score/Fall Risk Level 0 - 2 = Low Risk Oriented to surroundings. Abuse screen: Denies threats or abuse. Denies injuries from another. Nutritional screening: No deficits noted. Tuberculosis screening: No symptoms or risk factors identified. Assessment: 07:45 General: SEE TRIAGE NOTE. bp Vital Signs: 07:42 BP 157 / 98; Pulse 116; Resp 18; Pulse Ox 97% on R/A; Weight 113.4 kg; Height 5 ft. 8 iw in. ; Pain 8; 07:42 Body Mass Index 38.01 (113.40 kg, 172.72 cm) iw 07:42 Pain Scale: Adult ED Course: 07:29 Patient arrived in ED. im 07:32 Dipak Barber MD is Attending Physician. rt 07:34 José Boateng RN is Primary Nurse. bp 07:41 Triage completed. iw 07:42 Arm band placed on. iw 07:45 Patient has correct armband on for positive identification. bp 07:45 No provider procedures requiring assistance completed. Patient did not have IV access bp during this emergency room visit. Administered Medications: 08:15 Drug: Ketorolac IM 30 mg IM once Route: IM; Site: right deltoid; bp 08:29 Follow up: Response: No adverse reaction bp 08:15 Drug: Amoxicillin PO 875 mg PO once {Note: GIVEN AUGMENTIN PER MD.} Route: PO; bp 08:29 Follow up: Response: No adverse reaction bp Medication: 07:45 VIS not applicable for this client. bp Outcome: 07:54 Discharge ordered by MD. rt 08:31 Discharged to home ambulatory, bp 08:31 Condition: stable 08:31 Discharge instructions given to patient, Instructed on discharge instructions, follow up and referral plans. medication usage, Demonstrated understanding of instructions, follow-up care, medications, Prescriptions given X 1, 08:31 Patient left the ED. bp Signatures: Sara Cope RN RN iw José Boateng RN RN bp Dipak Barber MD MD rt Anya Green im
[2024-12-22] MEDS ORDERED: AMOX/K CLAV 875 MG TAB ONE (08:17)
[2024-12-22] MEDS ORDERED: KETOROLAC 30 MG/ML INJ ONE (08:18)
== END 2024-12-22 08:31 | disposition home or self-care (01) ==
LOC: ER 07:25
DX: K02.9 Dental caries, unspecified (principal)
CPT/HCPCS: 96372; 99284

== ENCOUNTER 2024-12-27 21:13 | Emergency (ER) | payer SELFPAY ==
--- OUTSIDE RECORDS SUMMARY | 2024-12-27 21:17 | XMS REPORT | Continuity of Care Document ---
Author Name Unknown Address [address] [facility] [place] [address] [facility] [place] Address [address] [facility]. [address] [place] [address] Care Team Providers Care Web Services Manager Name Role Phone PCP, PATIENT DOES NOT HAVE A Primary Care Physic [place] Unavailable SAKINA WALLER Attending Clinician Unavailable SUSAN DOMINGUEZ Attending Clinician Unavailable LAB90 Attending Clinician Unavailable KARINA COFFMAN Attending Clinician Unavailable Meghna BASILIO MD, John Attending Clinician [phone] Doctor Unassigned, [place] Attending Clinician U Madelin Sanitago LVN Attending Clinician [phone] Gurijt Cervantes MD Attending Clinician [phone] Marshall Schmidt MD Attending Clinician [phone] Bill Alcantara MD Attending Clinician [phone] MARSHALL SCHMIDT Admitting Clinician Marsahll Mac MD Admitting Clinician [phone] Payers Payer Name Policy Type Policy Number Effective Date Expirati on Date Source [facility] JANICE ALVARADO COPAY FOCUS 9 [id number] 2024 00:00:00 Problems Condition Name Condition Details Condition Category Status Onset Date Resolution Date Last Treatment Date Treating Clinician Comments Source Well adult exam Well adult exam Disease Active 2023-08 00:00: 00 Henna Seybold - Externa l Obesity (BMI 30-39.9) Obesity (BMI 30-39.9) Disease Active 12-05 00:00: 00 General acute hospital Trauma Trauma Disease Active 12-04 00:00: 00 General acute hospital Closed fracture of posterior lip of right acetabulum without additional fracture Closed fracture of posterior lip of right acetabulum without additional fracture Disease Active 12-04 00:00: 00 Overview: Formattin g of this note might be different from the original. Added automatic ally from request for surgery [id number] General acute hospital SVT (supravent ricular tachycardi a) (CMS-HCC) (multi HCC) SVT (supravent ricular tachycardi a) ([facility]-HCC) (multi HCC) Disease Active Henna Seybold - [...] NO KNOWN ALLERGIE S Drug Class Active General acute hospital Social History Social Habit Start Date Stop Date Quantity Comments Source History SDOH Alcohol Std Drinks [facility] History SDOH Alcohol Binge [facility] History SDOH Social Connections Get Together [facility] History SDOH Social Connections Zoroastrianism [facility] History SDOH Social Connections Membership [facility] History SDOH Social Connections Meetings [facility] History SDOH Physical Activity DPW [facility] History SDOH Housing Places Lived [facility] Sexual orientation K ernestina Adamesold - External [...] (event) 2022-12-16 00:00:00 2022-12-26 10:21:00 Not sure [facility] History SDOH Alcohol Frequency 2022-12-04 00:00:00 2022-12-04 00:00:00 1 [facility] History SDOH Social Connections Phone 2022-12-04 00:00:00 2022-12-04 00:00:00 3 [facility] History SDOH Social Connections Living 2022-12-04 00:00:00 2022-12-04 00:00:00 98 [facility] History SDOH Physical Activity MPS 2022-12-04 00:00:00 2022-12-04 00:00:00 0 [facility] History SDOH Financial 2022-12-04 00:00:00 2022-12-04 00:00:00 5 [facility] History SDOH Food Worry 2022-12-04 00:00:00 2022-12-04 00:00:00 1 [facility] History SDOH Food Scarcity 2022-12-04 00:00:00 2022-12-04 00:00:00 1 [facility] History SDOH Transport Med 2022-12-04 00:00:00 2022-12-04 00:00:00 2 [facility] History SDOH Transport Non-Med 2022-12-04 00:00:00 2022-12-04 00:00:00 2 [facility] History SDOH Housing Unable to Pay 2022-12-04 00:00:00 2022-12-04 00:00:00 2 [facility] History SDOH Housing Homeless Last Year 2022-12-04 00:00:00 2022-12-04 00:00:00 2 [facility] Sex assigned at 1990 00:00:00 1990 00:00:00 [...] 12-09 00:00: 00 01-07 04:59 :00 No [id number] 30mg inject 0.3 mL under the skin every 12 (twelve) hours for 28 days. General acute hospital docusate 100 mg capsule 12-09 00:00: 00 12-26 04:59 :00 No [id number] 100mg Take 1 capsule by mouth in the morning and 1 capsule in the evening. Do all this for 15 days. General acute hospital methocarbam oL 750 mg tablet 12-09 00:00: 00 12-25 04:59 :00 No [id number] 750mg Take 1 tablet by mouth 3 (three) times daily as needed for Pain (scale 4-6) for up to 14 days. General acute hospital traMADoL 50 mg tablet 12-09 00:00: 00 12-18 04:59 :00 No [id number] 50mg Take 1 tablet by mouth every 6 (six) hours as needed for Pain (scale 4-6) or Pain (scale 7-10) for up to 7 days. Indication s: acute pain [facility] ondansetron (ZOFRAN) 4 mg tablet 12-09 00:00: 00 12-16 04:59 :00 No [id number] 4mg Take 1 tablet by mouth every 12 (twelve) hours as needed for Nausea and Vomiting (N/V) for up to 5 days. General acute hospital HYDROcodone -acetaminop hen 5-325 mg tablet 12-09 00:00: 00 12-16 04:59 :00 No [id number] 1{tbl} Take 1 tablet by mouth every 6 (six) hours as needed for Pain (scale 7-10) for up to 5 days. Indication s: acute pain [facility] gabapentin (NEURONTIN) capsule 300 mg 12-08 04:45: 00 Yes 300mg 300 mg, Oral, TID, First dose (after last modificati on) on 12/07/22 at 2345, Until Discontinu ed, Routine [facility] HYDROcodone -acetaminop hen (NORCO 5) 5-325 mg tablet 1 tablet 12-08 04:45: 00 Yes 1{tbl} 1 tablet, Oral, Q4HPRN, Starting on 12/07/22 at 2345, Until Discontinu ed, Routine, Pain (scale 4-6) [facility] ondansetron (ZOFRAN) tablet 4 mg 12-07 01:59: 00 Yes 4mg 4 mg, Oral, Q8HPRN, Starting on Fri12/06/22 at 2059, Until Discontinu ed, Routine, Nausea and Vomiting (N/V) General acute hospital ondansetron (ZOFRAN (PF)) injection 4 mg 12-06 21:15: 00 12-06 20:35 :00 No 4mg 4 mg, Slow IV Push, ONCE, On Fri12/06/22 at 1615, For 1 dose
Do ses of ondansetro n 16 mg and above need to be administer ed via IV piggyback. For Dose >=24mg ECG monitoring is advisable.
General acute hospital ceFAZolin (ANCEF) 1,000 mg in NaCl 0.9% [...] of therapy: within 24 hours of surgery General acute hospital povidone-io dine (BETADINE) 10 % solution 12-06 16:56: 00 12-06 18:58 :39 No PRN, Starting on Fri12/06/22 at 1156, Until Fri12/06/22 at 1358, Routine, Intra-op General acute hospital foLIC acid (FOLATE) tablet 1 mg 12-05 14:00: 00 Yes 1mg 1 mg, Oral, DAILY, First dose on Fri12/05/22 at 0900, Until Discontinu ed, Routine General acute hospital thiamine (VITAMIN B1) tablet 100 mg 12-05 14:00: 00 Yes 100mg 100 mg, Oral, DAILY, First dose on Fri12/05/22 at 0900, Until Discontinu ed, Routine General acute hospital oxazepam (SERAX) capsule 15 mg 12-04 18:36: 08 Yes 15mg 15 mg, Oral, Q4HPRN, Starting on Fri12/04/22 at 1336, Until Discontinu ed, Routine, Only while awake for DBP equal to or greater than 100, HR equal to or greater than 100. General acute hospital docusate (COLACE) capsule 100 mg 12-04 14:00: 00 Yes 100mg 100 mg, Oral, DAILY, First dose on Fri12/04/22 at 0900, Until Discontinu ed, Routine General acute hospital methocarbam oL (ROBAXIN) tablet 500 mg 12-04 13:00: 00 Yes 500mg 500 mg, Oral, QID, First dose on Fri12/04/22 at 0800, Until Discontinu ed, Routine General acute hospital enoxaparin (LOVENOX) injection 30 mg 12-04 13:00: 00 Yes 30mg 30 mg, Subcutaneo us, Q12H, First dose on Fri12/04/22 at 0800, Until Discontinu ed, Routine General acute hospital ketamine (KETALAR) injection 100 mg 12-04 11:45: 00 12-04 09:48 :00 No 100mg 100 mg, Slow IV Push, ONCE, 1 dose, On Fri12/04/22 at 0645, Routine General acute hospital morpHINE (2 mg/mL) injection 4 mg 12-04 11:40: 56 Yes 4mg 4 mg, Slow IV Push, Q3HPRN, Starting on Fri12/04/22 at 0640, Until Discontinu ed, Routine, Pain (scale 7-10) General acute hospital HYDROcodone -acetaminop hen (NORCO 5) 5-325 mg tablet 1 tablet 12-04 11:38: 48 12-08 04:33 :17 No 1{tbl} 1 tablet, Oral, Q6HPRN, Starting on Fri12/04/22 at 0638, Until 12/07/22 at 2333, Routine, Pain (scale 4-6) General acute hospital acetaminoph en (TYLENOL) tablet 650 mg 12-04 11:38: 23 Yes 650mg 650 mg, Oral, Q6HPRN, Starting on Fri12/04/22 at 0638, Until Discontinu ed, Routine, Pain (scale 1-3) [facility] propofoL IV infusion 200 mg 12-04 11:30: 00 12-04 09:53 :00 No 200mg 200 mg, Slow IV Push, ONCE, On Fri12/04/22 at 0630, For 1 dose General acute hospital Vital Signs Vital Name Observation Time Observation [...] External Body temperature 2022-12-26 16:53:00 35.83 Sandrine [facility] Body height 2022-12-26 16:53:00 175.3 cm [facility] Body weight 2022-12-26 16:53:00 94.756 kg [facility] BMI 2022-12-26 16:53:00 30.85 kg/m2 [facility] Systolic blood pressure 2022-12-10 15:46:00 100 mm[Hg] [facility] Diastolic blood pressure 2022-12-10 15:46:00 49 mm[Hg] [facility] Heart rate 2022-12-10 15:46:00 57 /min Unive [facility] Body temperature 2022-12-10 15:46:00 36.72 Sandrine [facility] Respiratory rate 2022-12-10 15:46:00 18 /min [facility] Oxygen saturation in Arterial blood by Pulse oximetry 2022-12-10 15:46:00 97 /min [facility] Body height 2022-12-04 07:17:00 172.7 cm [facility] Body weight 2022-12-04 07:17:00 104.327 kg [facility] BMI 2022-12-04 07:17:00 34.97 kg/m2 [facility] Systolic blood pressure 2022-12-06 08:23:00 122 mm[Hg] [facility] Diastolic blood pressure 2022-12-06 08:23:00 70 mm[Hg] [facility] Heart rate 2022-12-06 08:23:00 84 /min Unive [facility] Body temperature 2022-12-06 08:23:00 36.39 Sandrine [facility] Respiratory rate 2022-12-06 08:23:00 18 /min [facility] Oxygen saturation in Arterial blood by Pulse oximetry 2022-12-06 08:23:00 95 /min [facility] Body height 2022-12-04 07:17:00 172.7 cm [facility] Body weight 2022-12-04 07:17:00 104.327 kg [facility] BMI 2022-12-04 07:17:00 34.97 kg/m2 [facility] Procedures Procedure Date / Time Performed Performing Clinician Source XR FEMUR 2 VW RIGHT 2022-12-26 16:20:15 Karina Coffman [facility] ASSIGNMENT OF BENEFITS 2022-12-26 15:22:34 Docto r Unassigned, [place] [facility] STATEMENT OF PATIENT FINANCIAL RESPONSIBILITY 2022-12-26 05:01:00 Doctor Unassigned, [place] [facility] POCT GLUCOSE (AUTOMATED) 2022-12-09 13:25:00 Meghna, [facility] POCT GLUCOSE (AUTOMATED) 2022-12-09 13:25:00 Karina Coffman [facility] CT PELVIS WO CONTRAST 2022-12-07 01:31:06 Sandra Coffmna [facility] CT PELVIS WO CONTRAST 2022-12-07 01:31:06 Sandra Coffman [facility] VBG+VCOOX+NA+K+GLU+CA2+ 2022-12-06 17:03:00 Meghna [facility] FL TIME OR (NON-REPORTABLE) 2022-12-06 16:40:52 Meghna [facility] FL TIME OR (NON-REPORTABLE) 2022-12-06 16:40:52 Meghna [facility] VBG+VCOOX+NA+K+GLU+CA2+ 2022-12-06 15:14:00 Meghna [facility] VBG+VCOOX+NA+K+GLU+CA2+ 2022-12-06 14:07:00 Karina Coffman [facility] VBG+VCOOX+NA+K+GLU+CA2+ 2022-12-06 13:19:00 Karina Coffman [facility] ACETABULUM ORIF 2022-12-06 12:00:00 Karina Coffman [facility] FEMUR HARDWARE REMOVAL 2022-12-06 12:00:00 Layne Coffman [facility] ACETABULUM ORIF 2022-12-06 12:00:00 Karina Coffman [facility] FEMUR HARDWARE REMOVAL 2022-12-06 12:00:00 Layne Coffman [facility] CT PELVIS WO CONTRAST 2022-12-04 11:02:08 Benji Lim [facility] CT PELVIS WO CONTRAST 2022-12-04 11:02:08 Benji Lim [facility] XR KNEE <3 VW RIGHT 2022-12-04 10:19:00 Veronica Lim [facility] XR KNEE <3 VW RIGHT 2022-12-04 10:19:00 Veronica Lim [facility] MODERATE SEDATION 2022-12-04 09:34:52 Garrett Knutson [facility] MODERATE SEDATION 2022-12-04 09:34:52 Garrett Knutson [facility] XR FEMUR 2 VW RIGHT 2022-12-04 [facility]:18[facility]W RIGHT 2022-12-04 09:18:16 Raphael [facility] XR KNEE <3 VW RIGHT 2022-12-04 09:18:16 Black, [facility] XR PELVIS 3+ VW 2022-12-04 09:18[facility] FEMUR 2 VW RIGHT 2022-12-04 09:18:16 Raphael, [facility] XR HIPS 2 VW RIGHT 2022-12-04 09:18:16 Raphael [facility] XR KNEE <3 VW RIGHT 2022-12-04 09:18:16 Raphael [facility] XR PELVIS 3+ VW 2022-12-04 09:18:16 Veronica Lim [facility] ABORH CONFIRMATION (LAB ONLY) 2022-12-04 08:11:00 [facility] ABORH CONFIRMATION (LAB ONLY) 2022-12-04 08:11:00 [facility] CT CERVICAL SPINE WO CONTRAST 2022-12-04 08:02:04 Hiram [facility] CT CERVICAL SPINE WO CONTRAST 2022-12-04 08:02:04 Hiram [facility] CT LUMBAR SPINE WO CONTRAST 2022-12-04 07:54:[facility] WO [facility]AST 2022-12-04 07:54:51 Hiram [facility] CT LUMBAR SPINE WO CONTRAST 2022-12-04 07:54:51 Hiram [facility] CT THORACIC SPINE WO CONTRAST 2022-12-04 07:54:51 Hiram [facility] CT THORAX WO CONTRAST 2022-12-04 07:47:34 Hiram [facility] CT THORAX WO CONTRAST 2022-12-04 07:47:34 Hiram [facility] CT HEAD WO CONTRAST 2022-12-04 07:47:26 Yazmin Gandhi [facility] CT HEAD WO CONTRAST 2022-12-04 07:47:26 Yazmin Gandhi [facility] BASIC METABOLIC PANEL (NA, K, CL, CO2, GLUCOSE, BUN, CREATININE, CA) 2022-12-04 07:27:00 [facility] CBC WITHOUT DIFF 2022-12-04 07:27:00 Billy [facility] PROTHROMBIN TIME / INR 2022-12-04 07:27:00 Олег Cervantes [facility] ACTIVATED PARTIAL THRMPLAS LATANYA 2022-12-04 07:27:00 [facility] HB ABO GROUPING 2022-12-04 07:27:00 [facility]IC METABOLIC PANEL (NA, K, CL, CO2, GLUCOSE, BUN, CREATININE, CA) 2022-12-04 07:27:00 [facility] CBC WITHOUT DIFF 2022-12-04 07:27:00 Billy [facility] PROTHROMBIN TIME / INR 2022-12-04 07:27:00 Олег Cervantes [facility] ACTIVATED PARTIAL THRMPLAS LATANYA 2022-12-04 07:27:00 [facility] HB ABO GROUPING 2022-12-04 07:27:00 Gurjit Cervantes [facility] HOSPITAL ADMISSION 2022-12-04 05:01:00 Doctor Un assigned, [place] [facility] HOSPITAL ADMISSION 2022-12-04 05:01:00 Doctor Un assigned, [place] [facility] Encounters Start Date/Time End Date/Time Encounter Type Admission Type Attending [facility] Care Facility Care Department Encounter ID Source 2024-12-03 16:00:00 2024-12-03 16:00:00 Outpatient SAKINA WALLER [id number] Henna Sharma 2024-08-31 14:00:00 2024-08-31 14:00:00 Outpatient SUSAN DOMINGUEZ [id number] Henna Sharma 2024-07-01 00:00:00 2024-07-01 00:00:00 Outpatient SUSAN DOMINGUEZ [id number] Henna Sharma 2024-06-29 10:50:00 2024-06-29 10:50:00 Outpatient LAB90 HENNA SEAY [id number] Henna Sharma 2024-06-29 09:30:00 2024-06-29 09:30:00 Outpatient SUSAN DOMINGUEZ [id number] [facility] 2024-02-24 15:30:41 2024-02-24 15:30:41 Outpatient SFA SFA [id number] Imer Moreno 2023-02-06 09:40:00 2023-02-06 09:40:00 Outpatient Alexander MEGHNAKARINA STAHL [facility] [id number] General acute hospital 2022-12-26 10:36:51 2022-12-26 23:59:00 Hospital Encounter MeghnaKarina [facility] [place] [id number] [id number] [id number] General acute hospital 2022-12-26 09:40:00 2022-12-26 12:33:53 Outpatient R MEGHNAKARINA [facility] [id number] General acute hospital 2022-12-26 09:40:00 2022-12-26 12:33:53 Office Visit MeghnaKarina [facility] [place] [id number] 350.1.13.10 4.2.7.2.686 [id number] General acute hospital 2022-12-26 00:00:00 2022-12-26 00:00:00 Orders Only Doctor Unassigned, [place] [facility] [id number] 350.1.13.10 4.2.7.2.686 [id number] General acute hospital 2022-12-11 00:00:00 2022-12-11 00:00:00 Transition of Care Madelin Gutierrez [id number] 350.1.13.10 4.2.7.2.686 [id number] General acute hospital 2022-12-04 02:18:00 2022-12-10 18:11:00 Inpatient T KARINA COFFMAN [facility] STR [id number] General acute hospital 2022-12-04 02:18:00 2022-12-10 18:11:00 Hospital Encounter Gurjit Cervantes, Marshall Alcantara, Bill Ray [facility] [id number] [id number] 4.2.7.2.686 [id number] General acute hospital 2022-12-06 07:00:00 2022-12-06 12:10:00 Surgery [facility] [id number] [id number] [id number] [id number] General acute hospital Results Test Description Test Time Test Comments Results Result Co mments Source [facility]+NA+K+GLU+CA2+2022-12-10 02:40:45* Test Item Value Reference Range Interpretation Comme nts PH (test code = 4977800163) 7.38 7.32-7.42 PCO2 HUMZA (test code = 1749041153) 40 See_Comment L [Automated messa ge] The system which generated this result transmitted reference range: 41 - 51 mmHg. The reference range was not used to interpret this result as normal/abnormal. PO2 HUMZA (test code = 0406949496) 82 See_Comment HH [Automated messa ge] The system which generated this result transmitted reference range: 25 - 40 mmHg. The reference range was not used to interpret this result as normal/abnormal. HCO3 HUMZA (test code = 8488723742) 24 See_Comment [Automated messa ge] The system which generated this result transmitted reference range: 24 - 28 mEq/L. The reference range was not used to interpret this result as normal/abnormal. AC VBE(BEAKER) (test code = 4028792105) -1.4 mEq/L THB HUMZA (test code = 9532308742) 14.7 g/dL 13.5-18.0 %O2HB HUMZA (test code = 4550762066) 94.4 % 52.0-63.0 H %COHB HUMZA (test code = 7522084368) 1.8 % 0.0-1.5 H %METHB HUMZA (test code = 4981285248) 0.2 % 0.4-1.5 L VOL%O2 HUMZA (test code = 7797601648) 19.5 % 6.0-12.0 H QUES NA (test code = 7899525127) 150 mmol/L 135-145 H K+ (test code = 0752147946) 3.9 mmol/L 3.5-5.0 AC CA IONZ (test code = 0430852741) 4.70 mg/dL 4.50-5.30 GLUCOSE (test code = 4237789615) 92 mg/dL 70-110 Lab Interpretation (test code = 88842-9) Abnormal [facility]+NA+K+GLU+CA2+2022-12-10 02:39:14* Test Item Value Reference Range Interpretation Comme nts PH (test code = 5812649600) 7.31 7.32-7.42 L PCO2 HUMZA (test code = 0058582765) 48 See_Comment [Automated messa ge] The system which generated this result transmitted reference range: 41 - 51 mmHg. The reference range was not used to interpret this result as normal/abnormal. PO2 HUMZA (test code = 2876536911) 56 See_Comment HH [Automated messa ge] The system which generated this result transmitted reference range: 25 - 40 mmHg. The reference range was not used to interpret this result as normal/abnormal. HCO3 HUMZA (test code = 9401139029) 24 See_Comment [Automated messa ge] The system which generated this result transmitted reference range: 24 - 28 mEq/L. The reference range was not used to interpret this result as normal/abnormal. AC VBE(BEAKER) (test code = 0234018724) -2.7 mEq/L THB HUMZA (test code = 8294532648) 13.3 g/dL 13.5-18.0 L %O2HB HUMZA (test code = 0629410874) 87.4 % 52.0-63.0 H %COHB HUMZA (test code = 5214028531) 1.1 % 0.0-1.5 %METHB HUMZA (test code = 8214072337) 0.3 % 0.4-1.5 L VOL%O2 HUMZA (test code = 6411037373) 16.3 % 6.0-12.0 H QUES NA (test code = 3839632538) 138 mmol/L 135-145 K+ (test code = 6064710932) 4.2 mmol/L 3.5-5.0 AC CA IONZ (test code = 9351783033) 4.60 mg/dL 4.50-5.30 GLUCOSE (test code = 0148650518) 196 mg/dL 70-110 H Lab Interpretation (test code = 21052-1) Abnormal [facility]+NA+K+GLU+CA2+2022-12-10 02:38:38* Test Item Value Reference Range Interpretation Comme nts PH (test code = 1356223586) 7.32 7.32-7.42 PCO2 HUMZA (test code = 6238097682) 46 See_Comment [Automated messa ge] The system which generated this result transmitted reference range: 41 - 51 mmHg. The reference range was not used to interpret this result as normal/abnormal. PO2 HUMZA (test code = 9972266838) 143 See_Comment HH [Automated messa ge] The system which generated this result transmitted reference range: 25 - 40 mmHg. The reference range was not used to interpret this result as normal/abnormal. HCO3 HUMZA (test code = 8983437257) 23 See_Comment L [Automated messa ge] The system which generated this result transmitted reference range: 24 - 28 mEq/L. The reference range was not used to interpret this result as normal/abnormal. AC VBE(BEAKER) (test code = 8528102851) -3.1 mEq/L THB HUMZA (test code = 7847373008) 12.4 g/dL 13.5-18.0 L %O2HB HUMZA (test code = 1951856387) 97.5 % 52.0-63.0 H %COHB HUMZA (test code = 6148674939) 1.1 % 0.0-1.5 %METHB HUMZA (test code = 4436617800) 0.3 % 0.4-1.5 L VOL%O2 HUMZA (test code = 6956332389) 17.3 % 6.0-12.0 H QUES NA (test code = 7210601944) 133 mmol/L 135-145 L K+ (test code = 3827361168) 4.4 mmol/L 3.5-5.0 AC CA IONZ (test code = 9936249748) 4.50 mg/dL 4.50-5.30 GLUCOSE (test code = 3332726775) 141 mg/dL 70-110 H Lab Interpretation (test code = 80856-1) Abnormal [facility] GLUCOSE (AUTOMATED)2022-12-09 13:25:50* Test Item Value Reference Range Interpretation Comme nts POCT GLU (test code = 2450642989) 107 mg/dL 70-110 Lab Interpretation (test cod e = 51057-2) Normal [facility] GLUCOSE (AUTOMATED)2022-12-09 13:25:50* Test Item Value Reference Range Interpretation Comme nts POCT GLU (test code = 1765703311) 107 mg/dL 70-110 Lab Interpretation (test cod e = 60939-8) Normal [facility] Confirmation (Lab Only)2022-12-04 08:14:00* Test Item Value Reference Range Interpretation Comme nts ABO & RH (test code = 20) O Positive [facility] Confirmation (Lab Only)2022-12-04 08:14:00* Test Item Value Reference Range Interpretation Comme nts ABO & RH (test code = 20) O Positive [facility] Metabolic Panel (NA, K, CL, CO2, GLUCOSE, BUN, CREATININE, CA)2022-12-04 07:47:57* Test Item Value Reference Range Interpretation Comme nts NA (test code = 3734046952) 141 mmol/L 135-145 K (test code = 8793759669) 4.4 mmol/L 3.5-5.0 Slight hemolysis CL (test code = 4403446784) 106 mmol/L 98-108 CO2 TOTAL (test code = 2116034533) 23 mmol/L 23-31 AGAP (test code = 8338850944) 12 2-16 BUN (test code = 8358732007) 7 mg/dL 7-23 Slight hemolysis GLUCOSE (test code = 2927467448) 95 mg/dL 70-110 CREATININE (test code = 1061605298) 0.63 mg/dL 0.60-1.25 CALCIUM (test code = 3141648673) 8.4 mg/dL 8.6-10.6 L eGFR (test code = 5282062922) 148.5 mL/min/1.73m2 NADIA (test code = NADIA) [...] imaging tests). Lab Interpretation (test code = 71814-4) Abnormal [facility] Metabolic Panel (NA, K, CL, CO2, GLUCOSE, BUN, CREATININE, CA)2022-12-04 07:47:57* Test Item Value Reference Range Interpretation Comme nts NA (test code = 2556485841) 141 mmol/L 135-145 K (test code = 1315395654) 4.4 mmol/L 3.5-5.0 Slight hemolysis CL (test code = 8231207355) 106 mmol/L 98-108 CO2 TOTAL (test code = 4646514940) 23 mmol/L 23-31 AGAP (test code = 4512725079) 12 2-16 BUN (test code = 5803092150) 7 mg/dL 7-23 Slight hemolysis GLUCOSE (test code = 4663397185) 95 mg/dL 70-110 CREATININE (test code = 6199985439) 0.63 mg/dL 0.60-1.25 CALCIUM (test code = 7398948888) 8.4 mg/dL 8.6-10.6 L eGFR (test code = 1916512845) 148.5 mL/min/1.73m2 NADIA (test code = NADIA) [...] imaging tests). Lab Interpretation (test code = 18040-3) [facility] / [id number] 07:45:56* Test Item Value Reference Range Interpretation [...] the indications. Lab Interpretation (test code = 76403-1) Normal [facility]23[facility] 07:45:56* Test Item Value Reference Range Interpretation Comme [facility] APTT Patient (test code = 3173-2) 29 See_Comment [Automated messa [employer]] The system which generated this result transmitted reference range: 26 - 36 Seconds. The reference range was not used to interpret this result as normal/abnormal. Lab Interpretation (test code = 50931-7) [facility] / [id number] 07:45:56* Test Item Value Reference Range Interpretation [...] the indications. Lab Interpretation (test code = 02215-3) [facility]23[facility]26 07:45:56* Test Item Value Reference Range Interpretation Comme nts APTT Patient (test code = 3173-2) 29 See_Comment [Automated messa ge] The system which generated this result transmitted reference range: 26 - 36 Seconds. The reference range was not used to interpret this result as normal/abnormal. Lab Interpretation (test code = 27188-5) [facility] / [id number] 07:39:53* Test Item Value Reference Range Interpretation [...] result as normal/abnormal. MPV (test code = 73564-8) 9.4 fL 9.8-13.0 L RDW-CV (test code = 788-0) 14.4 % 12.1-15.4 RDW-SD (test code = 14627-2) 46.4 fL 38.5-51.6 NRBC x10^3 (test code = 6693433189) See_Comment [Automated messa ge] The system which generated this result transmitted reference range: 10*3/?L. The reference range was not used to interpret this result as normal/abnormal. NRBC/100 WBC (test code = 8852103994) 0.0 See_Comment [Automated messa ge] The system which generated this result transmitted reference range: 0.0 - 10.0 /100 WBCs. The reference range was not used to interpret this result as normal/abnormal. IPF % (test code = 0763228876) Lab Interpretation (test code = 01760-9) [facility]normal [facility] / [id number] 07:39:53* Test Item Value Reference Range Interpretation [...] result as normal/abnormal. MPV (test code = 61418-3) 9.4 fL 9.8-13.0 L RDW-CV (test code = 788-0) 14.4 % 12.1-15.4 RDW-SD (test code = 12290-0) 46.4 fL 38.5-51.6 NRBC x10^3 (test code = 7406052798) See_Comment [Automated messa ge] The system which generated this result transmitted reference range: 10*3/?L. The reference range was not used to interpret this result as normal/abnormal. NRBC/100 WBC (test code = 4256274674) 0.0 See_Comment [Automated messa ge] The system which generated this result transmitted reference range: 0.0 - 10.0 /100 WBCs. The reference range was not used to interpret this result as normal/abnormal. IPF % (test code = 7654428325) Lab Interpretation (test code = 25059-4) [facility]normal [facility] Screen - The Type and Screen [...] POSITIVE IAT (test code = 1185) Negative [facility] - The Type and Screen [...] POSITIVE IAT (test code = 1185) Negative [facility]"
--- NOTE | 2024-12-27 22:47 | RAD REPORT ---
Abdomen Exam Limited: 12/27/2024 10:42 PM CLINICAL HISTORY: EPIGASTRIC PAIN STUDY: Limited right upper quadrant ultrasound of abdomen. COMPARISON: None. FINDINGS: Liver: Within normal limits. Bile ducts: No intrahepatic or extrahepatic biliary ductal dilatation. Common bile duct measures 3 mm. Gallbladder: Normal. IMPRESSION: Unremarkable exam.
[2024-12-27 23:41] LABS: Absolute Eosinophils 0.1 K/uL (0-0.5); Absolute Lymphocytes (CBC) 1.6 K/uL (0.7-4.9); Absolute Monocytes 0.5 K/uL (0.1-1.3); Absolute Neutrophil 4.2 K/uL (1.8-8.0); Basophils % 0.7 % (0-1.3); Eosinophils % 1.9 % (0-4.4); Hematocrit 42.4 % (39.6-49.0); Hemoglobin 14.9 g/dL (13.6-17.9); Lymphocytes % 24.4 % (15.3-44.8); MCH 29.3 pg (27.0-35.0); MCHC 35.2 g/dL (32.0-36.0); MCV 83.4 fL (80-100); MPV 7.7 fL (7.6-11.3); Monocytes % 7.6 % (3.3-12.3); Neutrophils % 65.4 % (41.7-73.7); Nucleated Red Blood Cells % 0.1 % (0-0); Platelets 147 thou/uL (152-406); RBC Red Blood Cell Count 5.09 M/uL (4.33-5.43); Red Cell Distribution Width 15.3 % (12.1-15.2)
[2024-12-27 23:51] LABS: Albumin 3.1 g/dL (3.4-5.0); Albumin/Globulin Ratio 0.7 (1.1-1.8); Anion Gap 10.6 mEq/L (5.0-15.0); Bilirubin Total 0.5 mg/dL (0.2-1.0); Globulin 4.6 g/dL (2.3-3.5); Potassium 3.6 mEq/L (3.5-5.1); Protein, Total 7.7 g/dL (6.4-8.2)
[2024-12-28] MEDS ORDERED: FAMOTIDINE 20 MG/2 ML VIAL IV ONE (00:29)
[2024-12-28] MEDS ORDERED: ONDANSETRON 4 MG/2 ML VIAL ONE (00:29)
[2024-12-28] MEDS ORDERED: NA CHLORIDE 0.9% 1,000 ML ONE (00:29)
--- NOTE | 2024-12-28 01:03 | EDPHYS ---
Physician Documentation [facility] Name: Rusty Read Jr Age: 34 yrs Sex: Male : 1990 Arrival Date: 12/27/2024 Time: 21:13 Bed 15 Private MD: ED Physician Les Mercedes HPI: 12/27 22:33 This 34 yrs old Male presents to ER via Ambulatory with complaints of cp Abdominal Pain, Vomiting/Diarrhea. 22:33 The patient presents with abdominal pain. Onset: The symptoms/episode began/occurred cp today. Associated signs and symptoms: Pertinent positives: nausea and vomiting, diarrhea, right hip pain, Pertinent negatives: fever, testicular pain, vomiting blood. Historical: - Allergies: 22:13 No Known Allergies; br2 - PSHx: 22:13 Appendectomy; Pelvis Fx; br2 - Immunization history:: Adult Immunizations not up to date. - Infectious Disease History:: Denies. - Social history:: Smoking status: Patient reports the use of cigarette tobacco products, Reported history of juuling and/or vaping. Patient/guardian denies using alcohol, street drugs. ROS: 22:35 Constitutional: Negative for body aches, chills, fever, cp 22:35 Eyes: Negative for injury, pain, redness, and discharge, cp 22:35 ENT: Negative for drainage from ear(s), ear pain, sore throat, difficulty swallowing, difficulty handling secretions, 22:35 Cardiovascular: Negative for chest pain, 22:35 Respiratory: Negative for cough, shortness of breath, wheezing, 22:35 Abdomen/GI: Positive for abdominal pain, nausea, vomiting, and diarrhea, Negative for hematemesis, black/tarry stool, rectal bleeding, 22:35 MS/extremity: Positive for right hip pain, 22:35 All other systems are negative, Exam: 22:40 Constitutional: The patient appears in no acute distress, alert, awake, non-toxic, well cp developed, well nourished, obese, 22:40 Head/Face: Normocephalic, atraumatic. cp 22:40 Eyes: Periorbital structures: appear normal, Conjunctiva: normal, no exudate, no injection, Sclera: no appreciated abnormality, Lids and lashes: appear normal, bilaterally, 22:40 ENT: External ear(s): are unremarkable, Nose: is normal, Mouth: Lips: moist, Oral mucosa: moist, Posterior pharynx: Airway: no evidence of obstruction, patent, 22:40 Chest/axilla: Inspection: normal, 22:40 Cardiovascular: Rate: tachycardic, Rhythm: regular, 22:40 Respiratory: the patient does not display signs of respiratory distress, Respirations: normal, no use of accessory muscles, no retractions, labored breathing, is not present, Breath sounds: are clear throughout, no decreased breath sounds, no stridor, no wheezing, 22:40 Abdomen/GI: Inspection: obese Bowel sounds: active, all quadrants, Palpation: soft, in all quadrants, mild abdominal tenderness, in all quadrants, 22:40 Back: pain, is absent, ROM is normal, 22:40 Musculoskeletal/extremity: Extremities: noted in the right hip: pain, lateral side tenderness, There is no evidence of decreased ROM, deformity, ROM: limited passive range of motion due to pain, in the right hip, 22:40 Skin: cellulitis, is not appreciated, no rash present. Vital Signs: 22:10 BP 147 / 103; Pulse 111; Resp 18; Temp 97.2; Pulse Ox 100% on R/A; Weight 117.93 kg; br2 Height 5 ft. 9 in. ; Pain 8/; 12/28 00:37 BP 129 / 78; Pulse 88; Resp 16; Pulse Ox 96% on R/A; km10 01:56 BP 127 / 80; Pulse 96; Resp 18; Temp 98.1; Pulse Ox 99% on R/A; km10 12/27 22:10 Body Mass Index 38.39 (117.93 kg, 175.26 cm) br2 12/27 22:10 Pain Scale: Adult br2 MDM: 12/27 22:08 Medical Screening Exam initiated cp 12/28 01:01 Data reviewed: vital signs, nurses notes, lab test result(s), radiologic studies, plain cp films, and as a result, I will discharge patient. 01:01 Differential diagnosis: appendicitis, gastritis, non-specific abd pain, Peritonitis, cp Pyelonephritis, Testicular Torsion, Ureterolithiasis, urinary tract infection. I considered the following discharge prescriptions or medication management in the emergency department Medications were administered in the Emergency Department. See MAR. Counseling: I had a detailed discussion with the patient and/or guardian regarding the historical points, exam findings, and any diagnostic results supporting the discharge/admit diagnosis, lab results, radiology results, to return to the emergency department if symptoms worsen or persist or if there are any questions or concerns that arise at home. Response to treatment: the patient's symptoms have markedly improved after treatment, and as a result, I will discharge patient. Special discussion: Based on the patient's Hx, exam, and Dx evaluation, there is no indication for emergent surgery or inpatient Tx. It is understood by the patient/guardian that if the Sx's persist or worsen they need to return immediately for re-evaluation. 12/27 22:29 Order name: CBC with Diff; Complete Time: 00:02 cp 12/27 21: Order name: CMP; Complete Time: 00:02 cp 12/27 21:29 Order name: Lipase; Complete Time: 00:02 cp 12/27 22:29 Order name: US Abdomen Limited; Complete Time: 23:48 cp 12/28 00:03 Order name: XRAY Pelvis cp 12/28 00:03 Order name: XRAY Hip RIGHT 2 view cp 12/27 22:29 Order name: IV Saline Lock; Complete Time: 22:55 cp 12/27 22:29 Order name: Labs collected and sent; Complete Time: 22:55 cp Administered Medications: 00:36 Drug: Famotidine IVP 20 mg IVP once; dilute with 10 mL 0.9% NaCl; give over 2 minutes km10 Route: IVP; Site: right antecubital; 00:36 Drug: Ondansetron IVP 4 mg IVP once; over 2 minutes Route: IVP; Site: right antecubital;km10 00:36 Drug: NS 0.9% IV 1000 ml IV at 1 bolus Per protocol; to be given as a bolus over 60 km10 minutes Route: IV; Rate: 1 bolus; Site: right antecubital; Disposition Summary: 12/28/24 01:02 Discharge Ordered Notes: Location: Home cp Problem: new cp Symptoms: have improved cp Condition: Stable cp Diagnosis - Nausea with vomiting, unspecified cp - Diarrhea, unspecified cp - Pain in right hip cp Followup: cp - With: Private Physician - When: 2 - 3 days - Reason: Worsening of condition Discharge Instructions: - Discharge Summary Sheet cp - Diarrhea, Adult cp - Nausea and Vomiting, Adult cp Forms: - Medication Reconciliation Form cp - Antibiotic Education cp - Prescription Opioid Use cp - Patient Portal Instructions cp - Leadership Thank You Letter cp - Work release form vc1 Prescriptions: - Anaprox DS 550 mg Oral Tablet - take 1 tablet ORAL route every 12 hours As needed; 20 tablet; Refills: 0, cp Product Selection Permitted - Lomotil 2.5-0.025 mg Oral Tablet - take 1 tablet ORAL route every 6 hours As needed; 20 tablet; Refills: 0, cp Product Selection Permitted - ondansetron 8 mg Oral Tablet,disintegrating - take 1 tablet ORAL route every 12 hours; 15 tablet; Refills: 0, Product cp Selection Permitted Addendum: 12/29/2024 20:03 Co-signature as Attending Physician, Les Mercedes MD I agree with the assessment s p4 and plan of care. I reviewed the patient's care provided by the Advanced Practice Provider and agree with the diagnosis and treatment plan. Signatures: Dispatcher [employer] EDPA Hardeep Graham PA PA Les Benavidez MD MD sp4 Soraya Gallegos RN RN br2 Indiana Campa RN RN km10 Corrections: (The following items were deleted from the chart) 12/28 22:31 12/27 22:33 Onset: The symptoms/episode began/occurred this morning, cp cp
--- NOTE | 2024-12-28 01:03 | ER ---
Nurse's Notes [facility] Name: Rusty Read Jr Age: 34 yrs Sex: Male : 1990 Arrival Date: 12/27/2024 Time: 21:13 Bed 15 Private MD: Diagnosis: Nausea with vomiting, unspecified;Diarrhea, unspecified;Pain in right hip Presentation: 12/27 22:10 Chief complaint: Patient states: AB PAIN MID UMBILICAL AREA , VOMITING (3), DIARRHEA br2 (3) BEGAN AT 5PM TODAY. Coronavirus screen: Client denies travel out of the [place] in the last 14 days. Ebola Screen: Patient denies exposure to infectious person. Initial Sepsis Screen: Does the patient meet any 2 criteria? No. Patient's initial sepsis screen is negative. Does the patient have a suspected source of infection? No. Patient's initial sepsis screen is negative. Risk Assessment: Do you want to hurt yourself or someone else? Patient reports no desire to harm self or others. Onset of symptoms was December 27, 2024 at 17:00. 22:10 Method Of Arrival: Ambulatory br2 22:10 Acuity: CINDY 3 br2 Triage Assessment: 22:13 General: Appears in no apparent distress. comfortable, Behavior is calm, cooperative. br2 Pain: Complains of pain in umbilical area Pain currently is 8 out of 10 on a pain scale. GI: Reports lower abdominal pain, upper abdominal pain, diarrhea, nausea, vomiting. Historical: - Allergies: 22:13 No Known Allergies; br2 - PSHx: 22:13 Appendectomy; Pelvis Fx; br2 - Immunization history:: Adult Immunizations not up to date. - Infectious Disease History:: Denies. - Social history:: Smoking status: Patient reports the use of cigarette tobacco products, Reported history of juuling and/or vaping. Patient/guardian denies using alcohol, street drugs. Screenin/20 00:41 [facility] ED Fall Risk Assessment (Adult) History of falling in the last 3 months, km10 including since admission No falls in past 3 months (0 pts) Confusion or Disorientation No (0 pts) Intoxicated or Sedated No (0 pts) Impaired Gait No (0 pts) Mobility Assist Device Used No (0 pt) Altered Elimination No (0 pt) Score/Fall Risk Level 0 - 2 = Low Risk. Abuse screen: Denies threats or abuse. Denies injuries from another. Nutritional screening: No deficits noted. Tuberculosis screening: No symptoms or risk factors identified. Assessment: 00:37 General: Appears in no apparent distress. Behavior is calm, cooperative. Pain: km10 Complains of pain in abdomen Pain currently is 5 out of 10 on a pain scale. Also complains of nausea. Neuro: Level of Consciousness is awake, alert, obeys commands, Oriented to person, place, time, situation. Respiratory: Airway is patent Respiratory effort is even, unlabored, Respiratory pattern is regular, symmetrical. GI: Abdomen is round Stools are reported to be diarrhea. Bowel sounds present X 4 quads. Abd is soft and non tender X 4 quads. Reports diarrhea, nausea. Vital Signs: 12/27 22:10 BP 147 / 103; Pulse 111; Resp 18; Temp 97.2; Pulse Ox 100% on R/A; Weight 117.93 kg; br2 Height 5 ft. 9 in. ; Pain 8/10; 12/28 00:37 BP 129 / 78; Pulse 88; Resp 16; Pulse Ox 96% on R/A; km10 01:56 BP 127 / 80; Pulse 96; Resp 18; Temp 98.1; Pulse Ox 99% on R/A; km10 12/27 22:10 Body Mass Index 38.39 (117.93 kg, 175.26 cm) br2 12/27 22:10 Pain Scale: Adult br2 ED Course: 12/27 21:14 Patient arrived in ED. al6 21:26 Hardeep Graham PA is PHCP. cp 21:27 Les Mercedes MD is Attending Physician. cp 22:13 Triage completed. br2 22:46 US Abdomen Limited In Process Unspecified. EDMS 22:54 Initial lab(s) drawn, by me, sent to lab. Inserted saline lock: 20 gauge in right rk3 antecubital area, using aseptic technique. Blood collected. Flushed with 10 mL NS. 23:58 Indiana Campa, RN is Primary Nurse. km10 12/28 00:38 XRAY Pelvis In Process Unspecified. EDMS 00:38 XRAY Hip RIGHT 2 view In Process Unspecified. EDMS 00:42 Bed in low position. Call light in reach. Side rails up X 1. Provided Education on: km10 plan of care. Door closed. Noise minimized. Lights dimmed. 00:45 Arm band placed on right wrist. km10 01:59 No provider procedures requiring assistance completed. km10 02:01 IV discontinued, intact, bleeding controlled, No redness/swelling at site. Pressure km10 dressing applied. Administered Medications: 00:36 Drug: NS 0.9% IV 1000 ml IV at 1 bolus Per protocol; to be given as a bolus over 60 km10 minutes Route: IV; Rate: 1 bolus; Site: right antecubital; 00:36 Drug: Ondansetron IVP 4 mg IVP once; over 2 minutes Route: IVP; Site: right antecubital;km10 00:36 Drug: Famotidine IVP 20 mg IVP once; dilute with 10 mL 0.9% NaCl; give over 2 minutes km10 Route: IVP; Site: right antecubital; Medication: 02:00 VIS not applicable for this client. km10 Outcome: 01:02 Discharge ordered by . nima 02:01 Discharged to home ambulatory, km10 02:01 Condition: stable 02:01 Discharge instructions given to patient, Instructed on discharge instructions, follow up and referral plans. medication usage, Demonstrated understanding of instructions, follow-up care, medications, Prescriptions given X 3, 02:01 Patient left the ED. km10 Signatures: Dispatcher [employer] EDMS Hardeep Graham PA PA cp Riddle, Belinda RN RN br2 Luciana August al6 Kristofer Yanez rk3 Indiana Campa RN RN km10
--- NOTE | 2024-12-28 01:06 | RAD REPORT ---
EXAM DESCRIPTION: XR PELVIS 1-2 VIEWS CLINICAL HISTORY: 34 years Male Right hip pain. COMPARISON: Radiograph of Hip 12/27/2024, CT Abdomen pelvis 12/24/2021, (Report only). TECHNIQUE: 1 view study of the Pelvis was performed. FINDINGS: No acute fractures seen. Metallic plate and screw device right ischium. Additional metallic screw tra nsfixing the inferior right hemipelvis. Satisfactory articulation of femoral heads bilaterally with acetabular regions. Normal bone mineralization. No erosive or lytic lesion is seen. Artifact, trochan teric regions bilaterally. IMPRESSION: No acute fracture or dislocation seen. Postsurgical changes right hemipelvis. Electronically signed by: Amrita Roca MD 12/28/2024 01:03 AM CDT RP Transcribed Date/Time: 12/28/2024 1:06 AM
--- NOTE | 2024-12-28 01:07 | RAD REPORT ---
EXAM DESCRIPTION: XR HIP 2 OR MORE VIEWS RIGHT CLINICAL HISTORY: 34 years Male Pain. COMPARISON: Radiograph of Pelvis 12/27/2024. TECHNIQUE: 2 view study of the Right hip were performed. FINDINGS: Satisfactory articulation right femoral head with acetabular region. Metallic fixation right hemipelv is. No acute fractures noted. Normal bony mineralization. No erosive or lytic lesion is seen. IMPRESSION: No acute fracture or dislocation seen. Postsurgical changes. Electronically signed by: Amrita Roca MD 12/28/2024 01:04 AM CDT Transcribed Date/Time: 12/28/2024 1:07 AM
[2024-12-28 02:21] VITALS: BP 127/80; TEMP 98.1; O2SAT 99
== END 2024-12-28 02:01 | disposition home or self-care (01) ==
LOC: ER 21:13
DX: R11.2 Nausea with vomiting, unspecified (principal); R19.7 Diarrhea, unspecified; M25.551 Pain in right hip
CPT/HCPCS: 36415; 72170; 76705; 80053; 83690; 85025; 96374; 96375; 99284; J2405; J7030